=== PATIENT | female | born 1930 | race Caucasian/White ===

== ENCOUNTER 2017-01-05 01:01 | Emergency (ER) | payer OTHER ==
[~2017-01-05 01:01] MED LIST: ALEN70TA39 PO; D31000TA PO; FERR65TA PO; LEVO75TA3 PO; LOSA50TA PO; METO25 PO; NAPR250T57 PO; NOVOLOGMXP SQ; OMEP20TA39 PO; SIMV20 PO
[2017-01-05 01:05] VITALS: BP 135/75; PULSE 99; RESP 16; TEMP 98.7; O2SAT 99
[2017-01-05] MEDS ORDERED: OMEP40CA2 PO (01:25)
[2017-01-05] MEDS ORDERED: NOVOINJ2 SQ (01:25)
[2017-01-05] MEDS ORDERED: SIMV20TA PO (01:25)
[2017-01-05] MEDS ORDERED: LOSA50TA PO (01:25)
[2017-01-05] MEDS ORDERED: NOVOLOGP2 SQ (01:25)
[2017-01-05] MEDS ORDERED: METO25TA3 PO (01:25)
[2017-01-05] MEDS ORDERED: LEVO75TA3 PO (01:25)
[2017-01-05 01:57] LABS: AUTOMATED NEUTROPHIL # 4.8 TH/MM3 (1.8-7.7); BASOPHIL % 0.6 % (0.0-2.0); EOSINOPHIL # 0.2 TH/MM3 (0-0.4); EOSINOPHIL % 2.2 % (0.0-4.0); HEMATOCRIT 25.9 % (35.0-46.0); HEMO FLAGS DIFF FINAL; LYMPH % 19.3 % (9.0-44.0); LYMPHOCYTE # 1.4 TH/MM3 (1.0-4.8); MEAN CELL VOLUME 89.3 FL (80.0-100.0); MEAN CORPUSCULAR HGB CONC 33.6 % (32.0-36.0); MONO % 10.6 % (0.0-8.0); NEUT % 67.3 % (16.0-70.0); PLATELET COUNT 162 TH/MM3 (150-450); WHITE BLOOD COUNT 7.1 TH/MM3 (4.0-11.0)
--- NOTE | 2017-01-05 02:12 | PD ---
HPI Chief Complaint: Cold / Flu Symptoms Time Seen by Provider: 02:11 Travel History International Travel<30 days: No Contact w/Intl Traveler<30days: No Traveled to known affect area: No History of Present Illness HPI 86-year-old female came to the emergency room brought by her daughter with history of cough, rhinorrhea and posttussive chest pain that started at 9:00 yesterday morning. The daughter called patient's primary care doctor recommended to alternate Tylenol and Motrin. However the cough continued to get worse and she decided to bring her mother to the emergency room. She says patient had fever at home but it was not recorded. Patient is complaining of substernal chest pain but mainly upon coughing. Also some difficulty breathing when she lays down. She has history of coronary artery disease and had a CABG 20 years ago. 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 As per the daughter she just saw her doctor 2 weeks ago and everything was fine. Vital signs are stable. As I was talking to the daughter patient coughed a few times as well as blew her nose and had a congested voice. The daughter said she was sick a few days ago too but has recovered now. PFSH Past Medical History Narrative Medical List of her past medical, surgical, social and family history was reviewed from the nursing note Heart Rhythm Problems: No Cancer: Yes (SKIN CA, HAVE BEEN REMOVED) Cardiac Catheterization: Yes Cardiovascular Problems: Yes High Cholesterol: Yes Chest Pain: No Congestive Heart Failure: No Diabetes: Yes Patient Takes Glucophage: No Diminished Hearing: No Endocrine: Yes Genitourinary: Yes (ONE FUNCTIONING KIDNEY) Hypertension: Yes Immune Disorder: No Musculoskeletal: No Neurologic: No Psychiatric: No Reproductive: No Respiratory: No Thyroid Disease: Yes Menopausal: Yes Past Surgical History Abdominal Surgery: Yes (hernia) Appendectomy: Yes Coronary Artery Bypass Graft: Yes (triple) Other Surgery: Yes (bilateral shoulders, l knee, triple bypass) Social History Alcohol Use: No Tobacco Use: No Substance Use: No Allergies-Medications (Allergen,Severity, Reaction): Coded Allergies: Iodine (Unverified Allergy, Unknown, 01/05/17) Per family "decreased kidney function" Comments List of her allergies reviewed from the nursing note. Reported Meds & Prescriptions Reported Meds & Active Scripts Active Zithromax Z-Karlos (Azithromycin) 250 Mg Dspk 250 Mg PO DIRECTED 500 MG (2 tabs) day 1, then 1 tab days 2-5. Reported Novolog Inj (Insulin Aspart) 1,000 Unit/10 Ml Vial 34 Units SQ AC BREAKFAST Novolog Mix 70-30 FlexPen Inj (Insulin Aspart Protam-Asp 70-30 Inj) 300 Unit/3 Ml Pen 20 Units SQ Levothyroxine (Levothyroxine Sodium) 75 Mcg Tab 75 Mcg PO DAILY Omeprazole 40 Mg Cap 40 Mg PO DAILY Metoprolol Tartrate 25 Mg Tab 12.5 Mg PO BID Simvastatin 20 Mg Tab 20 Mg PO DAILY Losartan (Losartan Potassium) 50 Mg Tab 50 Mg PO BID Narrative Medication List of her home medications reviewed from the nursing note. Review of Systems Except as stated in HPI: all other systems reviewed are Neg Physical Exam Narrative GENERAL: Awake, alert, elderly, moderate distress SKIN: Focused skin assessment warm/dry. HEAD: Atraumatic. Normocephalic. EYES: Pupils equal and round. No scleral icterus. No injection or drainage. ENT: No nasal bleeding or discharge. Mucous membranes pink and moist. Nasal congestion and rhinorrhea. Clear postnasal drip. Some pharyngeal erythema NECK: Trachea midline. No JVD. CARDIOVASCULAR: Regular rate and rhythm. No murmur appreciated. RESPIRATORY: No accessory muscle use. Clear to auscultation. Breath sounds equal bilaterally. GASTROINTESTINAL: Abdomen soft, non-tender, nondistended. Hepatic and splenic margins not palpable. MUSCULOSKELETAL: No obvious deformities. No clubbing. No cyanosis. No edema. NEUROLOGICAL: Awake and alert. No obvious cranial nerve deficits. Motor grossly within normal limits. Normal speech. PSYCHIATRIC: Appropriate mood and affect; insight and judgment normal. Data Data Last Documented VS Orders Electrocardiogram (01/05/17 01:39) Complete Blood Count With Diff (01/05/17 01:39) Basic Metabolic Panel (Bmp) (01/05/17 01:39) Ckmb (Isoenzyme) Profile (01/05/17 01:39) Troponin I (01/05/17 01:39) Chest, Single Ap (01/05/17 01:39) Iv Access Insert/Monitor (01/05/17 01:39) Ecg Monitoring (01/05/17 01:39) Oxygen Administration (01/05/17:39) Oximetry (01/05/17 01:39) Influenzae A/B Antigen (01/05/17 01:40) CKMB (01/05/17 01:46) CKMB% (01/05/17 01:46) Azithromycin (Zithromax) (01/05/17 03:00) Group A Rapid Strep Screen (01/05/17 03:02) Strep Culture (Group A) (01/05/17 03:08) Labs MDM Medical Decision Making Medical Screen Exam Complete: Yes Emergency Medical Condition: Yes Medical Record Reviewed: Yes Interpretation(s) Twelve-lead EKG was reviewed by me. Normal sinus rhythm, left axis deviation, nonspecific ST-T wave changes. Heart rate of 95 bpm. Differential Diagnosis URI, pneumonia, influenza Narrative Course 2:52 AM patient has anemia which the daughter says that she has history of. She has some renal insufficiency which is also not new. Troponin is negative. Chest x-ray shows some retrocardiac density which under the given circumstances I would consider it to be pneumonia. Her cough does sound very wet. The patient has history of coronary artery disease this whole scenario seems more infectious than CAD. I will start her on Zithromax given her risk factors including diabetes. Her sugar is 320. I told the daughter that she could be discharged home as long as she gets the antibiotic. If condition worsens she should be brought back to the emergency room. She should follow up with her primary care on Sunday. Daughter was comfortable with this plan. Procedures EKG Prior to Arrival: No Diagnosis Primary Impression: Cough Additional Impressions: Pneumonia Qualified Code: J18.1 - Pneumonia of left lower lobe due to infectious organism Hyperglycemia Referrals: Primary Care Physician Additional Instructions: Please return to the ER if the condition worsens or any other new concerns. Otherwise follow-up with your primary care on Sunday. Give the medication as per the prescription direction. Patient should drink lots of fluid to stay hydrated. She can take Tylenol/Advil/ibuprofen/Motrin if she has fever. Med/Other Pt SpecificInfo: Prescription(s) given Scripts Azithromycin (Zithromax Z-Karlos)250 Mg [id number] Mg PO DIRECTED #1 DSPK Ref 0 500 MG (2 tabs) day 1, then 1 tab days 2-5. Prov:Reynold Cortez MD 01/05/17 Disposition: 01 DISCHARGE HOME Condition: Stable Reynold Cortez MD Jan 05, 2017 02:12 Eosinophils # (Auto) 0.2 TH/MM3 Basophils # (Auto) 0.0 TH/MM3 CBC Comment DIFF FINAL Differential Comment Sodium Level 137 MEQ/L Potassium Level 4.6 MEQ/L Chloride Level 103 MEQ/L Carbon Dioxide Level 26.8 MEQ/L Anion Gap 7 MEQ/L Blood Urea Nitrogen 33 MG/DL Creatinine 1.51 MG/DL Estimat Glomerular Filtration 33 ML/MIN Rate Random Glucose 320 MG/DL Calcium Level 9.1 MG/DL Total Creatine Kinase 104 U/L Creatine Kinase MB 0.9 NG/ML Troponin I 0.02 NG/ML [facility] Medical Decision Making Medical Screen Exam Complete: Yes Emergency Medical Condition: Yes Medical Record Reviewed: Yes Interpretation(s) Twelve-lead EKG was reviewed by me. Normal sinus rhythm, left axis deviation, nonspecific ST-T wave changes. Heart rate of 95 bpm. Differential Diagnosis URI, pneumonia, influenza Narrative Course 2:52 AM patient has anemia which the daughter says that she has history of. She has some renal insufficiency which is also not new. Troponin is negative. Chest x-ray shows some retrocardiac density which under the given circumstances I would consider it to be pneumonia. Her cough does sound very wet. The patient has history of coronary artery disease this whole scenario seems more infectious than CAD. I will start her on Zithromax given her risk factors including diabetes. Her sugar is 320. I told the daughter that she could be discharged home as long as she gets the antibiotic. If condition worsens she should be brought back to the emergency room. She should follow up with her primary care on Sunday. Daughter was comfortable with this plan. Procedures EKG Prior to Arrival: No Diagnosis Primary Impression: Cough Additional Impressions: Pneumonia Qualified Code: J18.1 - Pneumonia of left lower lobe due to infectious organism Hyperglycemia Referrals: Primary Care Physician Additional Instructions: Please return to the ER if the condition worsens or any other new concerns. Otherwise follow-up with your primary care on Sunday. Give the medication as per the prescription direction. Patient should drink lots of fluid to stay hydrated. She can take Tylenol/Advil/ibuprofen/Motrin if she has fever. Med/Other Pt SpecificInfo: Prescription(s) given Scripts Azithromycin (Zithromax Z-Karlos)250 Mg [id number] Mg PO DIRECTED #1 DSPK Ref 0 500 MG (2 tabs) day 1, then 1 tab days 2-5. Prov:Reynold Cortez MD 01/05/17 Disposition: 01 DISCHARGE HOME Condition: Stable Reynold Cortez MD Jan 05, 2017 02:12
[2017-01-05 02:13] LABS: ANION GAP 7 MEQ/L (5-15); BICARBONATE 26.8 MEQ/L (21.0-32.0); BLOOD UREA NITROGEN 33 MG/DL (7-18); CHLORIDE 103 MEQ/L (98-107); GLOMERULAR FILTRATION RATE 33 ML/MIN (>89); POTASSIUM 4.6 MEQ/L (3.5-5.1); SODIUM (NA) 137 MEQ/L (136-145)
[2017-01-05 02:16] LABS: CREATINE KINASE 104 U/L (26-192)
[2017-01-05 02:29] LABS: CKMB 0.9 NG/ML (0.5-3.6)
--- NOTE | 2017-01-05 02:40 | RADRPT ---
EXAM DATE/TIME: 01/05/2017 02:20 [facility] COMPARISON: CHEST SINGLE AP, November 03, 2015, 11:53. INDICATIONS : Pt has had cough and fever x 1 day. MEDICAL HISTORY : Diabetes mellitus type II. Hypertension Hypercholesterolemia. Thyroid disease, One functioning ki dney SURGICAL HISTORY : Appendectomy. CABG. ENCOUNTER: Initial ACUITY: 1 day PAIN SCORE: 7/10 LOCATION: Bilateral chest FINDINGS: A single view of the chest demonstrates the lungs to be symmetrically aerated without evidence of mas s, infiltrate or effusion. Retrocardiac density possible hiatal hernia. Cardiomegaly and previous CAB G. The cardiomediastinal contours are unremarkable. Osseous structures are intact. CONCLUSION: 1. Retrocardiac density possible hiatal hernia. 2. Cardiomegaly and previous median sternotomy. Nick Bangura MD on January 05, 2017 at 2:36 Board Certified Radiologist. This report was verified electronically.
[2017-01-05] MEDS ORDERED: ZITHTAB PO (02:56)
[2017-01-05] MEDS ORDERED: AZITHROMYCIN 250 MG TAB PO ONE (03:00)
[2017-01-05 03:54] VITALS: BP 130/74; PULSE 98; RESP 14; O2SAT 100
--- NOTE | 2017-01-05 16:43 | EKG ---
Date Performed: 01/05/2017 Time Performed: 01:38:36 PTAGE: 86 years EKG: Sinus rhythm NONSPECIFIC T-WAVE ABNORMALITY BORDERLINE ECG PREVIOUS TRACING : 09/17/2014 12.54 Compared to prior tracing no significant change DOCTOR: Woody Villanueva Interpretating Date/Time 01/05/2017 16:42:26
== END 2017-01-05 04:39 | disposition home or self-care (01) ==
LOC: NEPE 01:01
DX: J18.1 Lobar pneumonia, unspecified organism (principal); E11.65 Type 2 diabetes mellitus with hyperglycemia; I10 Essential (primary) hypertension; Z79.4 Long term (current) use of insulin
CPT/HCPCS: 71010; 80048; 82550; 82552; 84484; 85025; 87081; 87804; 87880; 93005; 99285

== ENCOUNTER 2017-01-23 00:51 | Inpatient (IN) | payer OTHER, MEDICARE ==
[~2017-01-23] VITALS: Ht 162.6 cm; Wt 75.4 kg
[2017-01-23] VITALS (14 sets, daily range): BP systolic 130–149; BP diastolic 60–91; PULSE 71–101; RESP 16–18; TEMP 97.2–99; O2SAT 97–99
[~2017-01-23 00:51] MED LIST changes: -ALEN70TA39 PO; -D31000TA PO; -FERR65TA PO; -METO25 PO; +METO25TA3 PO; -NAPR250T57 PO; +NOVOINJ2 SQ; -NOVOLOGMXP SQ; +NOVOLOGP2 SQ; -OMEP20TA39 PO; +OMEP40CA2 PO; -SIMV20 PO; +SIMV20TA PO; +ZITHTAB PO
[2017-01-23] MEDS ORDERED: ASPI81CH CHEW (01:01)
--- NOTE | 2017-01-23 01:14 | PD ---
HPI Chief Complaint: Cold / Flu Symptoms Time Seen by Provider: 01:05 Travel History International Travel<30 days: No Contact w/Intl Traveler<30days: No Traveled to known affect area: No History of Present Illness HPI The patient is an 86 year old female who presents to the [facility] emergency department with a history of body aches and chills that began this evening. The patient was also had a cough that has been persistent since she was last evaluated in the emergency department and treated for pneumonia on January 05, 2017 with a Z-Karlos. The patient reports that the cough is mainly dry in character. She denies having any known fevers. She denies having any chest pain, chest pressure, or shortness of breath. She denies having any abdominal pain, nausea, vomiting, or diarrhea. She last moved her bowels yesterday. She reports having generalized weakness. Otherwise on review of systems, she denies any neck pain, urinary symptoms, or neurologic symptoms. [facility] Past Medical History Narrative Medical The patient's past medical history is significant for having skin cancer, history of hyperlipidemia, diabetes mellitus, history of chronic renal insufficiency, hypertension, hypothyroid disorder, coronary artery disease. Heart Rhythm Problems: No Cancer: Yes (SKIN CA, HAVE BEEN REMOVED) Cardiac Catheterization: Yes Cardiovascular Problems: Yes High Cholesterol: Yes Chest Pain: No Congestive Heart Failure: No Diabetes: Yes Patient Takes Glucophage: No Diminished Hearing: No Endocrine: Yes Genitourinary: Yes (ONE FUNCTIONING KIDNEY) Hypertension: Yes Immune Disorder: No Musculoskeletal: No Neurologic: No Psychiatric: No Reproductive: No Respiratory: No Thyroid Disease: Yes Tetanus Vaccination: Unknown ?: Not Menopausal: Yes Past Surgical History Narrative Surgical The patient's past surgical history is significant for a hernia repair, appendectomy, coronary artery bypass grafting of 3 vessels, left knee surgery, bilateral shoulder surgery. Abdominal Surgery: Yes (hernia) Appendectomy: Yes Coronary Artery Bypass Graft: Yes (triple) Other Surgery: Yes (bilateral shoulders, l knee, triple bypass) Social History Alcohol Use: No Tobacco Use: No Substance Use: No Allergies-Medications (Allergen,Severity, Reaction): Coded Allergies: Iodine (Unverified Allergy, Unknown, 01/23/17) Per family "decreased kidney function" Reported Meds & Prescriptions Reported Meds & Active Scripts Active Reported Aspirin 81 Mg Chew 81 Mg CHEW DAILY Novolog Inj (Insulin Aspart) 1,000 Unit/10 Ml Vial 34 Units SQ AC BREAKFAST Novolog Mix 70-30 FlexPen Inj (Insulin Aspart Protam-Asp 70-30 Inj) 300 Unit/3 Ml Pen 20 Units SQ Levothyroxine (Levothyroxine Sodium) 75 Mcg Tab 75 Mcg PO DAILY Omeprazole 40 Mg Cap 40 Mg PO DAILY Metoprolol Tartrate 25 Mg Tab 12.5 Mg PO BID Simvastatin 20 Mg Tab 20 Mg PO DAILY Losartan (Losartan Potassium) 50 Mg Tab 50 Mg PO BID Review of Systems Except as stated in HPI: all other systems reviewed are Neg General / Constitutional: No: Fever Eyes: No: Visual changes HENT: Positive: Congestion, No: Headaches, Neck Stiffness, Neck Pain Cardiovascular: No: Chest Pain or Discomfort Respiratory: Positive: Cough, No: Shortness of Breath Gastrointestinal: No: Nausea, Vomiting, Diarrhea, Abdominal Pain, Changes in Bowel Habits Genitourinary: No: Dysuria Musculoskeletal: Positive: Myalgias, No: Pain Skin: No Rash Neurologic: Positive: Weakness (generalized weakness), No: Focal Abnormalities , Change in Mentation, Slurred Speech, Sensory Disturbance Psychiatric: No: Depression Endocrine: No: Polydipsia Hematologic/Lymphatic: No: Easy Bruising Physical Exam Narrative General: The patient is a well-developed well-nourished female in no acute distress. Head and Neck exam: Head is normocephalic atraumatic. Eyes: EOMI, pupils are equal round and reactive to light. Nose: Midline septum with pink mucous membranes Mouth: Dentition unremarkable. Moist mucus membranes. Posterior oropharynx is not erythematous. No tonsillar hypertrophy. Uvula midline. Airway patent. Neck: No palpable lymphadenopathy. No nuchal rigidity. No thyromegaly. Cardiovascular: Regular rate and rhythm without murmurs, gallops, or rubs. Lungs: The patient has decreased breath sounds in bilateral bases, no rhonchi, no crackles. Abdomen: Soft, without tenderness to palpation in all 4 quadrants of the abdomen. No guarding, rebound, or rigidity. Normal bowel sounds are audible. No tenderness on palpation of McBurney's point. Negative Pierre's sign. Extremities: No clubbing or cyanosis. The patient has 1+ edema bilateral lower extremities. 2+ pulses in all 4 extremities. No calf tenderness on palpation. Back: No spinous process tenderness to palpation. No costovertebral angle tenderness to palpation. Neurologic Exam: Grossly nonfocal. Skin Exam: No rash noted. Intact skin that is warm and dry. Data Data Last Documented VS Vital Signs Date Time Temp Pulse Resp B/P Pulse Ox O2 Delivery O2 Flow Rate FiO2 01/23/17 01:28 18 Room Air 01/23/17 00:57 98.5 96 141/91 99 Orders Electrocardiogram (01/23/17 01:11) Complete Blood Count With Diff (01/23/17:11) Comprehensive Metabolic Panel (01/23/17 01:11) Creatine Kinase (Cpk) (01/23/17:11) Ckmb (Isoenzyme) Profile (01/23/17:11) Troponin I (01/23/17:11) B-Type Natriuretic Peptide (01/23/17:11) Prothrombin Time / Inr (Pt) (01/23/17:11) Act Partial Throm Time (Ptt) (01/23/17:11) Blood Culture (01/23/17:11) Lipase (01/23/17:11) Urinalysis - C+S If Indicated (01/23/17:11) Magnesium (Mg) (01/23/17:11) Thyroid Stimulating Hormone (01/23/17:11) Chest, Single Ap (01/23/17:11) Iv Access Insert/Monitor (01/23/17:11) Ecg Monitoring (01/23/17:11) Oximetry (01/23/17:11) Lactic Acid Sepsis Protocol (01/23/17 01:11) Aspirin Chew (Aspirin Chew) (01/23/17 01:15) Nitroglycerin 2% Oint (Nitroglycerin 2% (01/23/17 01:15) Sodium Chlor 0.9% 250 Ml Inj (Ns 250 Ml (01/23/17 01:15) Admit Order (Ed Use Only) (01/23/17 03:51) Ceftriaxone Inj (Rocephin Inj) (01/23/17 04:00) Azithromycin Inj (Zithromax Inj) (01/23/17 04:00) Labs Laboratory Tests Test 01/23/17 01/23/17 01:15 01:20 B-Type Natriuretic Peptide 146 PG/ML White Blood Count 6.3 TH/MM3 Red Blood Count 3.10 MIL/MM3 Hemoglobin 9.0 GM/DL Hematocrit 27.4 % Mean Corpuscular Volume 88.1 FL Mean Corpuscular Hemoglobin 28.8 PG Mean Corpuscular Hemoglobin 32.7 % Concent Red Cell Distribution Width 14.1 % Platelet Count 175 TH/MM3 Mean Platelet Volume 10.5 FL Neutrophils (%) (Auto) 40.8 % Lymphocytes (%) (Auto) 41.1 % Monocytes (%) (Auto) 12.7 % Eosinophils (%) (Auto) 4.4 % Basophils (%) (Auto) 1.0 % Neutrophils # (Auto) 2.6 TH/MM3 Lymphocytes # (Auto) 2.6 TH/MM3 Monocytes # (Auto) 0.8 TH/MM3 Eosinophils # (Auto) 0.3 TH/MM3 Basophils # (Auto) 0.1 TH/MM3 CBC Comment DIFF FINAL Differential Comment Prothrombin Time 10.4 SEC Prothromb Time International 0.9 RATIO Ratio Activated Partial 33.5 SEC Thromboplast Time Sodium Level 140 MEQ/L Potassium Level 4.6 MEQ/L Chloride Level 108 MEQ/L Carbon Dioxide Level 25.1 MEQ/L Anion Gap 7 MEQ/L Blood Urea Nitrogen 32 MG/DL Creatinine 1.35 MG/DL Estimat Glomerular Filtration 37 ML/MIN Rate Random Glucose 167 MG/DL Lactic Acid Level 1.3 mmol/L Calcium Level 8.5 MG/DL Magnesium Level 1.7 MG/DL Total Bilirubin 0.2 MG/DL Aspartate Amino Transf 15 U/L (AST/SGOT) Alanine Aminotransferase 16 U/L (ALT/SGPT) Alkaline Phosphatase 76 U/L Total Creatine Kinase 73 U/L Troponin I 0.07 NG/ML Total Protein 7.3 GM/DL Albumin 3.5 GM/DL Lipase 120 U/L Thyroid Stimulating Hormone 4.480 uIU/ML [address] [place] [address] Medical Decision Making Medical Screen Exam Complete: Yes Emergency Medical Condition: Yes Medical Record Reviewed: Yes Interpretation(s) Last Impressions Chest X-Ray 01/23/17 0111 Signed Impressions: Service Date/Time: Monday, January 23, 2017 01:15 - CONCLUSION: Mild bibasilar atelectasis. Ady Chan MD Differential Diagnosis Pneumonia that is failed outpatient management, versus viral syndrome, versus electrolyte derangements, versus dehydration, versus acute coronary syndrome Narrative Course During the course of the patients emergency department visit, the patients history, examination, and differential diagnosis were reviewed with the patient. The patient had IV access obtained and blood work sent for analysis. The patient was placed on a personnel monitor with oximetry and blood pressure monitoring. The patient had an ECG done on arrival that shows a sinus rhythm heart rate of 94, QRS duration 86 ms, QTC 413 ms, no acute ST segment elevation , ST segments are depressed in lead 1, V4, V5, T waves are inverted in aVL. The patient was initially provided aspirin 162 mg by mouth 1, nitroglycerin 1/ 2 inch the chest wall, normal saline at 250 mL bolus 1. The patients laboratory studies were reviewed and remarkable for white count is 6.3, hemoglobin 9, platelets 175 with 12.7 monocytes, eosinophils 4.4. CMP is remarkable for a chloride of 108, BUN 32, creatinine 1.35 which appears to be at the patient's baseline, troponin I 0.07 which is increased compared to her prior evaluation January 05, TSH 4.48, lactic acid 1.3, PT 10.4, PTT 33.5, urinalysis shows 300 glucose, moderate leukocyte esterase, 11 wbc's, 3 squamous epithelial cells, occasional bacteria, culture indicated. Radiology studies were reviewed and remarkable for a chest x-ray that shows bibasilar atelectasis versus infiltrate. Given the patient's generalized weakness, body aches which she actually reports his most prominent in her shoulders this could be an atypical coronary syndrome presentation. The patient does have an intermediate troponin I which is increased compared to previously although she does also have renal insufficiency. The patient will be admitted for rule out serial cardiac enzyme protocol. The patients results were discussed with the patient, including the plan of care. I explained that further testing and/ or monitoring is indicated based on the patients history, examination, and/ or laboratory findings. Therefore, I recommended admission for additional evaluation. The patient expressed understanding and was agreeable with this plan. The patient was admitted to the hospital in stable condition and [facility] Physician Communication Physician Communication The patient's case was discussed with Dr. Hays who did agree to admit the patient for further evaluation and treatment at this time. Diagnosis Primary Impression: Generalized weakness Additional Impression: Elevated troponin Admitting Information Admitting Physician Requests: Admit Caryl Malloy MD Jan 23, 2017 01:14
[2017-01-23] MEDS ORDERED: ASPIRIN 81 MG CHEW TAB CHEW ONE (01:15)
[2017-01-23] MEDS ORDERED: SODIUM CHLOR 0.9% 250 ML INJ 250 ML IV ONE (01:15)
[2017-01-23] MEDS ORDERED: NITROGLYCERIN 2% OINT 1 GM PACKET TOPICAL ONE (01:15)
[2017-01-23 01:38] LABS: AUTOMATED NEUTROPHIL # 2.6 TH/MM3 (1.8-7.7); BASOPHIL # 0.1 TH/MM3 (0-0.2); EOSINOPHIL # 0.3 TH/MM3 (0-0.4); EOSINOPHIL % 4.4 % (0.0-4.0); HEMATOCRIT 27.4 % (35.0-46.0); HEMO FLAGS DIFF FINAL; LYMPH % 41.1 % (9.0-44.0); LYMPHOCYTE # 2.6 TH/MM3 (1.0-4.8); MEAN CELL VOLUME 88.1 FL (80.0-100.0); MEAN CORPUSCULAR HEMOGLOBIN 28.8 PG (27.0-34.0); MEAN CORPUSCULAR HGB CONC 32.7 % (32.0-36.0); MONO % 12.7 % (0.0-8.0); NEUT % 40.8 % (16.0-70.0); PLATELET COUNT 175 TH/MM3 (150-450); RED CELL DISTRIBUTION WIDTH 14.1 % (11.6-17.2); WHITE BLOOD COUNT 6.3 TH/MM3 (4.0-11.0)
[2017-01-23 01:44] LABS: ALT (GPT) 16 U/L (10-53); ANION GAP 7 MEQ/L (5-15); AST (GOT) 15 U/L (15-37); BICARBONATE 25.1 MEQ/L (21.0-32.0); BLOOD UREA NITROGEN 32 MG/DL (7-18); CHLORIDE 108 MEQ/L (98-107); GLOMERULAR FILTRATION RATE 37 ML/MIN (>89); MAGNESIUM 1.7 MG/DL (1.5-2.5); POTASSIUM 4.6 MEQ/L (3.5-5.1); SODIUM (NA) 140 MEQ/L (136-145)
[2017-01-23 01:45] LABS: APTT (PATIENT) 33.5 SEC (24.3-30.1); INTERNATIONAL NORMALIZED RATIO 0.9 RATIO; PROTHROMBIN TIME - PATIENT 10.4 SEC (9.8-11.6)
[2017-01-23 01:55] LABS: ALKALINE PHOSPHATASE 76 U/L (45-117); TOTAL BILIRUBIN ADULT 0.2 MG/DL (0.2-1.0)
--- NOTE | 2017-01-23 01:56 | RADRPT ---
EXAM DATE/TIME: 01/23/2017 01:15 [facility] COMPARISON: CHEST SINGLE AP, January 05, 2017, 2:20. INDICATIONS : Shortness of breath. MEDICAL HISTORY : Diabetes mellitus type II. Hypertension Hypercholesterolemia. Thyroid SURGICAL HISTORY : Appendectomy. CABG. ENCOUNTER: Initial ACUITY: 1 day PAIN SCORE: 0/10 LOCATION: Bilateral chest FINDINGS: Trace atelectasis seen of the lung bases. No acute pneumonia demonstrated. No pleural effusion or pne umothorax. Hiatal hernia again suspected. Heart size stable, upper limits of normal. There is been pr evious median sternotomy. CONCLUSION: Mild bibasilar atelectasis. Ady Chan MD on January 23, 2017 at 1:53 Board Certified Radiologist. This report was verified electronically.
[2017-01-23 01:57] LABS: CREATINE KINASE 73 U/L (26-192)
[2017-01-23] MEDS ORDERED: cefTRIAXone INJ 1,000 MG in SODIUM CHLORIDE 0.9% INJ 100 ML IV ONE (04:00)
[2017-01-23] MEDS ORDERED: AZITHROMYCIN INJ 500 MG in SODIUM CHLOR 0.9% 250 ML INJ 250 ML IV ONE (04:00)
[2017-01-23] MEDS ORDERED: NALOXONE HCL 0.4 MG/ML AMP IV PRN (04:15)
[2017-01-23] MEDS ORDERED: SODIUM CHLORIDE 0.9% FLUSH 10 ML FLUSH IV FLUSH PRN (04:15)
[2017-01-23] MEDS: SODIUM CHLORIDE 0.9% FLUSH 10 ML FLUSH IV FLUSH SCH ×2 (09:00→20:50)
--- NOTE | 2017-01-23 10:19 | EKG ---
Date Performed: 01/23/2017 Time Performed: 00:57:41 PTAGE: 86 years EKG: Normal Sinus rhythm Anteroseptal myocardial infarction - age indeterminate vs. lead rajinder cement Compared to the prior tra cing, there has been loss of R wave in V2 and increased ST depression. Clinical correlation needed fo r ischemia. PREVIOUS TRACING 01/05/2017 DOCTOR: Kendall Malloy Interpretating Date/Time 01/23/2017 10:19:00
[2017-01-23] MEDS: METOPROLOL TARTRATE 25 MG TAB PO SCH ×2 (11:57→20:50)
[2017-01-23] MEDS: LOSARTAN 50 MG TAB PO SCH ×2 (11:57→20:50)
[2017-01-23] MEDS: HEPARIN-D5W INJ 250 ML IV SCH (12:03)
--- NOTE | 2017-01-23 12:07 | PD.CONS ---
HPI Consult Requested By Primary Care Physician Non-Staff History of Present Illness 86 y/o F originally from [place] with pmhx significant for CAD s/p CABG x3 ~20 years ago, HTN, HLD, DM, CKD and chronic anemia admitted with complaints of body aches, described as bilateral shoulder that radiates to the back that started yesterday evening. Recently she was treated for a pneumonia with PO antx. She complaints of a nonproductive cough. Denies fevers, chest pain, chest pressure, shortness of breath, abdominal pain, nausea, vomiting, or diarrhea. EKG no acute ST changes and mildly elevated troponin. Consulted to cardiology fo further management and evaluation. 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 Last stress test per daughter was unremarkable. She has been started on a Heparin drip. Review of Systems Eyes: DENIES: Amaurosis Fugax, Change in vision HEENT: DENIES: Lightheadedness, Change in hearing Respiratory: DENIES: See HPI, Cough, Snoring, Shortness of breath, Wheezing, Sputum production Cardiovascular: DENIES: See HPI, Chest pain, Palpitations, Syncope, Tachycardia Gastrointestinal: DENIES: Nausea, Vomiting, Change in bowel habits, Reflux, Bloody stools, Melena Genitourinary: DENIES: Urinary incontinence, Difficulty voiding Integumentary: DENIES: Rash Neurologic: DENIES: Tingling or numbness, Memory problems, Poor Balance, Stroke symptoms Musculoskeletal: DENIES: Joint pain, Muscle pain, Limited range of motion, Back pain Psychiatric: DENIES: Anxiety, Depression, Sleep disturbances Hematologic: DENIES: Bruising tendencies, Bleeding tendencies Endocrine: DENIES: Weight gain, Weight loss, Thyroid disease Past Family Social History Allergies: Coded Allergies: Iodine (Unverified Allergy, Unknown, 01/23/17) Per family "decreased kidney function" Past Medical History HTN, CRI, DM, CAD and Hypothyroidism Past Surgical History Hernia Repair, Appendectomy, CABG Reported Medications Reported Meds & Active Scripts Active Reported Aspirin 81 Mg Chew 81 Mg CHEW DAILY Novolog Inj (Insulin Aspart) 1,000 Unit/10 Ml Vial 34 Units SQ AC BREAKFAST Novolog Mix 70-30 FlexPen Inj (Insulin Aspart Protam-Asp 70-30 Inj) 300 Unit/3 Ml Pen 20 Units SQ Levothyroxine (Levothyroxine Sodium) 75 Mcg Tab 75 Mcg PO DAILY Omeprazole 40 Mg Cap 40 Mg PO DAILY Metoprolol Tartrate 25 Mg Tab 12.5 Mg PO BID Simvastatin 20 Mg Tab 20 Mg PO DAILY Losartan (Losartan Potassium) 50 Mg Tab 50 Mg PO BID Active Ordered Medications Current Medications Medications (Trade) Dose Ordered Sig/Siddharth Route Start Time Stop Time Status Last Admin (NS Flush) 2 ml UNSCH PRN IV FLUSH 01/23/17 04:15 (NS Flush) 2 ml BID IV FLUSH 01/23/17 09:00 (Narcan Inj) 0.4 mg UNSCH PRN IV 01/23/17 04:15 (Pneumovax-23 Inj) 25 mcg ONCE ONCE IM 01/24/17 09:00 01/24/17 09:01 (Flu (Quadrivalent) Vaccine Inj) 0.5 ml ONCE ONCE IM 01/24/17 09:00 01/24/17 09:01 (Aspirin Chew) 81 mg DAILY CHEW 01/24/17 09:00 (Synthroid) 75 mcg DAILY@0600 PO 01/24/17 06:00 (Cozaar) 50 mg BID PO 01/23/17 11:15 01/23/17 11:57 (Lopressor) 12.5 mg BID PO 01/23/17 11:15 01/23/17 11:57 (Protonix) 40 mg DAILY PO 01/24/17 09:00 Pravastatin Sodium 40 mg 40 mg HS PO 01/23/17 21:00 (Heparin-D5W Inj) 250 ml @ 0 mls/hr TITRATE IV 01/23/17 11:15 01/23/17 12:03 Family History Noncontributory. Social History Negative for alcohol, tobacco or drugs. Physical Exam Vital Signs Vital Signs Date Time Temp Pulse Resp B/P Pulse Ox O2 Delivery O2 Flow Rate FiO2 01/23/17 11:24 98.4 88 17 147/67 98 01/23/17 09:10 98.6 96 16 148/66 98 01/23/17 07:25 97.2 88 16 130/60 97 Room Air 01/23/17 04:38 71 18 134/66 98 Room Air 01/23/17 01:28 18 Room Air 01/23/17 01:02 Room Air 01/23/17 00:57 98.5 96 18 141/91 99 Physical Exam GENERAL: Well-nourished, well-developed patient. SKIN: Warm and dry. HEAD: Normocephalic. EYES: No scleral icterus. No injection or drainage. NECK: Supple, trachea midline. No JVD or lymphadenopathy. CARDIOVASCULAR: Regular rate and rhythm without murmurs, gallops, or rubs. RESPIRATORY: Breath sounds equal bilaterally. No accessory muscle use. GASTROINTESTINAL: Abdomen soft, non-tender, nondistended. EXTREMITIES: No cyanosis, or edema. NEUROLOGICAL: Awake, alert, and oriented x 3. Non-focal. Laboratory Laboratory Tests Test 01/23/17 01/23/17 01/23/17 01:15 01:20 08:30 B-Type Natriuretic Peptide 146 White Blood Count 6.3 Red Blood Count 3.10 Hemoglobin 9.0 Hematocrit 27.4 Mean Corpuscular Volume 88.1 Mean Corpuscular Hemoglobin 28.8 Mean Corpuscular Hemoglobin 32.7 Concent Red Cell Distribution Width 14.1 Platelet Count 175 Mean Platelet Volume 10.5 Neutrophils (%) (Auto) 40.8 Lymphocytes (%) (Auto) 41.1 Monocytes (%) (Auto) 12.7 Eosinophils (%) (Auto) 4.4 Basophils (%) (Auto) 1.0 Neutrophils # (Auto) 2.6 Lymphocytes # (Auto) 2.6 Monocytes # (Auto) 0.8 Eosinophils # (Auto) 0.3 Basophils # (Auto) 0.1 CBC Comment DIFF FINAL Differential Comment Prothrombin Time 10.4 Prothromb Time International 0.9 Ratio Activated Partial 33.5 Thromboplast Time Sodium Level 140 Potassium Level 4.6 Chloride Level 108 Carbon Dioxide Level 25.1 Anion Gap 7 Blood Urea Nitrogen 32 Creatinine 1.35 Estimat Glomerular Filtration 37 Rate Random Glucose 167 Lactic Acid Level 1.3 Calcium Level 8.5 Magnesium Level 1.7 Total Bilirubin 0.2 Aspartate Amino Transf 15 (AST/SGOT) Alanine Aminotransferase 16 (ALT/SGPT) Alkaline Phosphatase 76 Total Creatine Kinase 73 47 Troponin I 0.07 0.46 Total Protein 7.3 Albumin 3.5 Lipase 120 Thyroid Stimulating Hormone 4.480 3rd Gen Date/Time Procedure Status Source Growth 01/23/17 01:20 Aerobic Blood Culture Received Blood Peripheral Pending 01/23/17 01:20 Anaerobic Blood Culture Received Blood Peripheral Pending Result Diagram: 01/23/17 0120 01/23/17 0120 Imaging Last Impressions Chest X-Ray 01/23/17 0111 Signed Impressions: Service Date/Time: Monday, January 23, 2017 01:15 - CONCLUSION: Mild bibasilar atelectasis. Ady Chan MD Assessment and Plan Problem List: (1) Elevated troponin Assessment and Plan: 86 y/o F admitted with shoulder pain and back pain found to have elevated troponin. DDx. ACS vs Dissection vs. PE vs. Demand Ischemia. Unfortunately clinical picture complicated by known CKD, severe anemia and allergy to iodine. After long discussion about treatment options, including invasive risk stratification, for now patient prefers conservative therapy with medications. Recommendations: 1. 2D echocardiogram 2. Cycle Cardiac Markers x 3 3. Telemetry 4. Cont ASA, Metoprolol, Statin and Heparin drip 5. Consider V/Q scan to r/o PE Thank you for the opportunity to take part in the care of this patient Further therapy to be determine (2) HTN (hypertension) (3) DM (diabetes mellitus) Problem Qualifiers (1) HTN (hypertension): Qualified Code: I10 - Essential hypertension Josh Rodriguez MD Jan 23, 2017 12:07
[2017-01-23 12:30] LABS: HEMATOCRIT 26.3 % (35.0-46.0); MEAN CELL VOLUME 88.6 FL (80.0-100.0); MEAN CORPUSCULAR HEMOGLOBIN 28.6 PG (27.0-34.0); MEAN CORPUSCULAR HGB CONC 32.3 % (32.0-36.0); PLATELET COUNT 150 TH/MM3 (150-450); RED BLOOD COUNT 2.97 MIL/MM3 (4.00-5.30); REVIEW FLAG FINAL; WHITE BLOOD COUNT 6.6 TH/MM3 (4.0-11.0)
[2017-01-23 12:39] LABS: APTT (PATIENT) 30.3 SEC (24.3-30.1); PROTHROMBIN TIME - PATIENT 10.7 SEC (9.8-11.6)
--- NOTE | 2017-01-23 12:43 | HHI.HP ---
[facility]Staff Admission Diagnosis Generalized weakness, elevated troponin Diagnoses: Chief Complaint: Diffuse aches and pains, cough Travel History International Travel<30 Days: No Contact w/Intl Traveler <30 Da: No Traveled to Known Affected Are: No History of Present Illness The patient is an 86-year-old female with a past medical history of CAD and diabetes who is presenting to the hospital with diffuse aches and pains as well as a cough. She came to the hospital about 2 weeks ago and was prescribed antibiotics for pneumonia. Her symptoms did not get better. She continued to cough regularly. She denies any sputum production. She complains of pain all over. She has pain in both of her shoulders as well as in her back. She also has aches and pains in her legs. She says she saw her primary care doctor about these symptoms. She denies any chest pain. She did have shortness of breath overnight approximated difficult to sleep. She also says she had severe back pain overnight which made it difficult for her to sleep. She currently denies any shortness of breath. She denies any fevers. She has no pain on urination. She denies any difficulties with bowel movements. She currently lives with her daughter and ambulates with a rolling walker. Review of Systems Except as stated in HPI: all other systems reviewed are Neg Past Family Social History Past Medical History CAD s/p CABG x 3 DM HTN Hypothyroidism Chronic kidney disease Iron deficiency anemia Hernia repair Left knee replacement Left toe surgery Allergies: Coded Allergies: Iodine (Unverified Allergy, Unknown, 01/23/17) Per family "decreased kidney function" Active Ordered Medications Current Medications Medications (Trade) Dose Ordered Sig/Siddharth Route Start Time Stop Time Status Last Admin (NS Flush) 2 ml UNSCH PRN IV FLUSH 01/23/17 04:15 (NS Flush) 2 ml BID IV FLUSH 01/23/17 09:00 (Narcan Inj) 0.4 mg UNSCH PRN IV 01/23/17 04:15 (Pneumovax-23 Inj) 25 mcg ONCE ONCE IM 01/24/17 09:00 01/24/17 09:01 (Flu (Quadrivalent) Vaccine Inj) 0.5 ml ONCE ONCE IM 01/24/17 09:00 01/24/17 09:01 (Aspirin Chew) 81 mg DAILY CHEW 01/24/17 09:00 (Synthroid) 75 mcg DAILY@0600 PO 01/24/17 06:00 (Cozaar) 50 mg BID PO 01/23/17 11:15 01/23/17 11:57 (Lopressor) 12.5 mg BID PO 01/23/17 11:15 01/23/17 11:57 (Protonix) 40 mg DAILY PO 01/24/17 09:00 Pravastatin Sodium 40 mg 40 mg HS PO 01/23/17 21:00 (Heparin-D5W Inj) 250 ml @ 0 mls/hr TITRATE IV 01/23/17 11:15 01/23/17 12:03 Family History Diabetes CAD Social History The patient does not smoke or drink. She lives with her daughter. Physical Exam Vital Signs Vital Signs Date Time Temp Pulse Resp B/P Pulse Ox O2 Delivery O2 Flow Rate FiO2 01/23/17 11:24 98.4 88 17 147/67 98 01/23/17 09:10 98.6 96 16 148/66 98 01/23/17 07:25 97.2 88 16 130/60 97 Room Air 01/23/17 04:38 71 18 134/66 98 Room Air 01/23/17 01:28 18 Room Air 01/23/17 01:02 Room Air 01/23/17 00:57 98.5 96 18 141/91 99 Physical Exam GENERAL: This is a well-nourished, well-developed patient, in no apparent distress. SKIN: No rashes, ecchymoses or lesions. Cool and dry. HEAD: Atraumatic. Normocephalic. No temporal or scalp tenderness. EYES: Pupils equal round and reactive. Extraocular motions intact. No scleral icterus. No injection or drainage. ENT: Nose without bleeding, purulent drainage or septal hematoma. Throat without erythema, tonsillar hypertrophy or exudate. Uvula midline. Airway patent. NECK: Trachea midline. No JVD or lymphadenopathy. Supple, nontender, no meningeal signs. CARDIOVASCULAR: Regular rate and rhythm without murmurs, gallops, or rubs. RESPIRATORY: Mild rhonchi appreciated. GASTROINTESTINAL: Abdomen soft, non-tender, nondistended. No hepato-splenomegaly , or palpable masses. No guarding. MUSCULOSKELETAL: Extremities without clubbing, cyanosis, or edema. Bilateral shoulder tenderness to palpation. No back tenderness to palpation. NEUROLOGICAL: Awake and alert. Cranial nerves II through XII intact. Motor and sensory grossly within normal limits. Five out of 5 muscle strength in all muscle groups. Normal speech. PSYCH: Mood and affect appropriate. Laboratory Laboratory Tests Test 01/23/17 01/23/17 01/23/17 01/23/17 01:15 01:20 08:30 12:06 B-Type Natriuretic Peptide 146 White Blood Count 6.3 6.6 Red Blood Count 3.10 2.97 Hemoglobin 9.0 8.5 Hematocrit 27.4 26.3 Mean Corpuscular Volume 88.1 88.6 Mean Corpuscular Hemoglobin 28.8 28.6 Mean Corpuscular Hemoglobin 32.7 32.3 Concent Red Cell Distribution Width 14.1 14.0 Platelet Count 175 150 Mean Platelet Volume 10.5 10.5 Neutrophils (%) (Auto) 40.8 Lymphocytes (%) (Auto) 41.1 Monocytes (%) (Auto) 12.7 Eosinophils (%) (Auto) 4.4 Basophils (%) (Auto) 1.0 Neutrophils # (Auto) 2.6 Lymphocytes # (Auto) 2.6 Monocytes # (Auto) 0.8 Eosinophils # (Auto) 0.3 Basophils # (Auto) 0.1 CBC Comment DIFF FINAL Differential Comment Prothrombin Time 10.4 Prothromb Time International 0.9 Ratio Activated Partial 33.5 Thromboplast Time Sodium Level 140 Potassium Level 4.6 Chloride Level 108 Carbon Dioxide Level 25.1 Anion Gap 7 Blood Urea Nitrogen 32 Creatinine 1.35 Estimat Glomerular Filtration 37 Rate Random Glucose 167 Lactic Acid Level 1.3 Calcium Level 8.5 Magnesium Level 1.7 Total Bilirubin 0.2 Aspartate Amino Transf 15 (AST/SGOT) Alanine Aminotransferase 16 (ALT/SGPT) Alkaline Phosphatase 76 Total Creatine Kinase 73 47 Troponin I 0.07 0.46 Total Protein 7.3 Albumin 3.5 Lipase 120 Thyroid Stimulating Hormone 4.480 3rd Gen Date/Time Procedure Status Source Growth 01/23/17 01:20 Aerobic Blood Culture Received Blood Peripheral Pending 01/23/17 01:20 Anaerobic Blood Culture Received Blood Peripheral Pending Result Diagram: 01/23/17 1206 01/23/17 0120 Imaging Last Impressions Chest X-Ray 01/23/17 0111 Signed Impressions: Service Date/Time: Monday, January 23, 2017 01:15 - CONCLUSION: Mild bibasilar atelectasis. Ady Chan MD Assessment and Plan Assessment and Plan NSTEMI The pt has diffuse aches and pains which may be a coronary equivalent. Troponin elevated at 0.46. She was started on a heparin gtt. EKG with evidence of ST depressions. Cardiology consult appreciated. - trend trops and EKGs. - continue heparin gtt for now. - telemetry. - check an echo, lipid profile. - continue cardiac regimen. Cough Recently treated for PNA with azithromycin. CXR unremarkable. - work-up as above. - cough suppressants as needed. DM On insulin as an outpt. - insulin sliding scale. - resume long-acting insulin as needed. - diabetic diet. - check HgbA1c. CKD Creatinine is at baseline. - avoid nephrotoxic agents. Anemia The pt gets iron infusions as an outpt. - monitor as needed. HTN Blood pressure slightly elevated. - continue home meds. - Vasotec as needed. PPx: Heparin Discussed Condition With Pt, pt's daughter, nurse Physician Certification 2 Midnight Certification Type: Admission for Inpatient Services Order for Inpatient Services The services are ordered in accordance with Medicare regulations or non- Medicare payer requirements, as applicable. In the case of services not specified as inpatient-only, they are appropriately provided as inpatient services in accordance with the 2-midnight benchmark. Estimated LOS (days): 2 days is the estimated time the patient will need to remain in the hospital, assuming treatment plan goals are met and no additional complications. Post-Hospital Plan: Home Ajith Tamayo DO Jan 23, 2017 12:43
[2017-01-23] MEDS: INSULIN ASPART SUPPLEMENTAL SCALE SQ SCH ×2 (18:33→20:55)
--- NOTE | 2017-01-23 19:27 | EKG ---
Date Performed: 01/23/2017 Time Performed: 08:27:14 PTAGE: 86 years EKG: NORMAL Sinus rhythm SEPTAL MYOCARDIAL INFARCTION DIFFUSED ST DEPRESSION IS MORE PROMINENT THAN IN PRIOR TRACING. POSSIBL E ISCHEMIA Clinical correlation is recommended ABNORMAL ECG PREVIOUS TRACING : 01/23/2017 00.57 DOCTOR: Kendall Malloy Interpretating Date/Time 01/23/2017 19:26:06
[2017-01-23] MEDS ORDERED: PRAVASTATIN SOD 40 MG TAB PO SCH (21:00)
[2017-01-23 21:18] LABS: APTT (PATIENT) 87.7 SEC (24.3-30.1)
--- NOTE | 2017-01-23 22:07 | EKG ---
Date Performed: 01/23/2017 Time Performed: 14:38:28 PTAGE: 86 years EKG: Sinus rhythm WITH SINUS ARRHYTHMIA SEPTAL MYOCARDIAL INFARCTION MILD ST-T ABNORMALITY ABNORMAL ECG PREVIOUS TRACING : 01/23/2017 08.27 Compared to prior tracing no significant change DOCTOR: Petra Biggs Interpretating Date/Time 01/23/2017 22:06:03
[2017-01-23 22:48] LABS: HDL CHOLESTEROL 60.1 MG/DL (40.0-60.0)
[2017-01-23 23:22] LABS: APTT (PATIENT) 77.4 SEC (24.3-30.1)
[2017-01-24] VITALS (29 sets, daily range): BP systolic 130–156; BP diastolic 60–84; PULSE 70–92; RESP 16–18; TEMP 98.2–99.1; O2SAT 93–99
[2017-01-24 03:51] LABS: AUTOMATED NEUTROPHIL # 2.3 TH/MM3 (1.8-7.7); BASOPHIL # 0.1 TH/MM3 (0-0.2); EOSINOPHIL # 0.2 TH/MM3 (0-0.4); EOSINOPHIL % 4.4 % (0.0-4.0); HEMATOCRIT 24.9 % (35.0-46.0); HEMO FLAGS DIFF FINAL; LYMPH % 42.2 % (9.0-44.0); LYMPHOCYTE # 2.4 TH/MM3 (1.0-4.8); MEAN CELL VOLUME 87.6 FL (80.0-100.0); MEAN CORPUSCULAR HEMOGLOBIN 28.5 PG (27.0-34.0); MEAN CORPUSCULAR HGB CONC 32.6 % (32.0-36.0); NEUT % 41.4 % (16.0-70.0); PLATELET COUNT 158 TH/MM3 (150-450); RED BLOOD COUNT 2.84 MIL/MM3 (4.00-5.30); RED CELL DISTRIBUTION WIDTH 13.7 % (11.6-17.2); WHITE BLOOD COUNT 5.6 TH/MM3 (4.0-11.0)
[2017-01-24 04:13] LABS: APTT (PATIENT) 92.7 SEC (24.3-30.1)
[2017-01-24 04:22] LABS: BICARBONATE 25.4 MEQ/L (21.0-32.0); POTASSIUM 4.6 MEQ/L (3.5-5.1)
[2017-01-24] MEDS: LEVOTHYROXINE SODIUM 75 MCG TAB PO SCH (05:58)
[2017-01-24] MEDS: INSULIN ASPART SUPPLEMENTAL SCALE SQ SCH ×4 (06:09→21:00)
[2017-01-24 07:10] LABS: APTT (PATIENT) 76.2 SEC (24.3-30.1)
[2017-01-24] MEDS ORDERED: INFLUENZA VIRUS VACCINE (QUADRIVALENT) 0.5 ML SYR IM ONE (09:00)
[2017-01-24] MEDS ORDERED: PNEUMOCOCCAL POLYVALENT INJ 25 MCG/0.5 ML SYR IM ONE (09:00)
[2017-01-24] MEDS: ASPIRIN 81 MG CHEW TAB CHEW SCH (09:29)
[2017-01-24] MEDS: PANTOPRAZOLE SOD 40 MG DELAYED RELEASE TAB PO SCH (09:29)
[2017-01-24] MEDS: LOSARTAN 50 MG TAB PO SCH ×2 (09:29→21:00)
[2017-01-24] MEDS: METOPROLOL TARTRATE 25 MG TAB PO SCH ×2 (09:29→21:00)
--- NOTE | 2017-01-24 09:29 | HHI.PR ---
Subjective Remarks The patient was resting comfortably in bed. Her family was at the bedside. The patient denied any pain or discomfort. She does continue to cough. Discussed with nursing. Objective Vitals Vital Signs Date Time Temp Pulse Resp B/P Pulse Ox O2 Delivery O2 Flow Rate FiO2 01/24/17 07:30 98.4 85 18 144/70 97 01/24/17 07:00 80 01/24/17 06:23 80 01/24/17 05:51 75 01/24/17 04:00 74 01/24/17 03:00 73 01/24/17 03:00 98.2 84 131/75 96 01/24/17 02:34 74 01/24/17 01:00 76 01/24/17 00:50 98.4 75 130/84 99 01/24/17 00:00 70 01/23/17 23:00 75 01/23/17 22:00 86 01/23/17 21:00 86 01/23/17 20:00 84 01/23/17 19:00 85 01/23/17 19:00 98.9 86 138/71 99 01/23/17 18:00 82 01/23/17 18:00 99.0 89 16 149/78 98 01/23/17 15:36 98.2 87 18 136/63 98 01/23/17 12:27 101 01/23/17 11:24 98.4 88 17 147/67 98 I/O 01/23/17 01/23/17 01/23/17 01/24/17 01/24/17 01/24/17 07:00 15:00 23:00 07:00 15:00 23:00 Intake Total 260 ml 480 ml Balance 260 ml 480 ml Intake Oral 240 ml 480 ml IV Total 20 ml # Voids 1 3 Result Diagram: 01/24/17 0313 01/24/17 0313 Imaging Last Impressions Chest X-Ray 01/23/17 0111 Signed Impressions: Service Date/Time: Monday, January 23, 2017 01:15 - CONCLUSION: Mild bibasilar atelectasis. Ady Chan MD Objective Remarks GENERAL: This is a well-nourished, well-developed patient, in no apparent distress. SKIN: No rashes, ecchymoses or lesions. Cool and dry. HEAD: Atraumatic. Normocephalic. No temporal or scalp tenderness. EYES: Pupils equal round and reactive. Extraocular motions intact. No scleral icterus. No injection or drainage. ENT: Nose without bleeding, purulent drainage or septal hematoma. Throat without erythema, tonsillar hypertrophy or exudate. Uvula midline. Airway patent. NECK: Trachea midline. No JVD or lymphadenopathy. Supple, nontender, no meningeal signs. CARDIOVASCULAR: Regular rate and rhythm without murmurs, gallops, or rubs. RESPIRATORY: Mild rhonchi appreciated. GASTROINTESTINAL: Abdomen soft, non-tender, nondistended. No hepato-splenomegaly , or palpable masses. No guarding. MUSCULOSKELETAL: Extremities without clubbing, cyanosis, or edema. Bilateral shoulder tenderness to palpation. No back tenderness to palpation. NEUROLOGICAL: Awake and alert. Cranial nerves II through XII intact. Motor and sensory grossly within normal limits. Five out of 5 muscle strength in all muscle groups. Normal speech. PSYCH: Mood and affect appropriate. Medications and IVs Current Medications Medications (Trade) Dose Ordered Sig/Siddharth Route Start Time Stop Time Status Last Admin (NS Flush) 2 ml UNSCH PRN IV FLUSH 01/23/17 04:15 (NS Flush) 2 ml BID IV FLUSH 01/23/17 09:00 01/23/17 20:50 (Narcan Inj) 0.4 mg UNSCH PRN IV 01/23/17 04:15 (Aspirin Chew) 81 mg DAILY CHEW 01/24/17 09:00 (Synthroid) 75 mcg DAILY@0600 PO 01/24/17 06:00 01/24/17 05:58 (Cozaar) 50 mg BID PO 01/23/17 11:15 01/23/17 20:50 (Lopressor) 12.5 mg BID PO 01/23/17 11:15 01/23/17 20:50 (Protonix) 40 mg DAILY PO 01/24/17 09:00 Pravastatin Sodium 40 mg 40 mg HS PO 01/23/17 21:00 01/23/17 20:50 (Heparin-D5W Inj) 250 ml @ 0 mls/hr TITRATE IV 01/23/17 11:15 01/23/17 12:03 A/P Assessment and Plan NSTEMI The pt had diffuse aches and pains on presentation. Troponin elevated at 1.7. She was started on a heparin gtt. EKG with evidence of ST depressions. Cardiology consult appreciated. LDL 80. - trend trops and EKGs. - continue heparin gtt for 48 hours. - telemetry. - check an echo. - will treat with medical management per cardiology. Cough Recently treated for PNA with azithromycin. CXR unremarkable. - work-up as above. - cough suppressants as needed. DM On insulin as an outpt. - insulin sliding scale. - Levemir 10 units daily for now. - diabetic diet. - check HgbA1c. CKD Creatinine is at baseline. - avoid nephrotoxic agents. Anemia The pt gets iron infusions as an outpt. - monitor as needed. HTN Blood pressure slightly elevated. - continue home meds. - Vasotec as needed. PPx: Heparin Discharge Planning Awaiting cardiology clearance Ajith Tamayo DO Jan 24, 2017 09:29
[2017-01-24] MEDS: SODIUM CHLORIDE 0.9% FLUSH 10 ML FLUSH IV FLUSH SCH ×2 (09:30→21:00)
[2017-01-24 09:36] LABS: APTT (PATIENT) 50.6 SEC (24.3-30.1)
--- NOTE | 2017-01-24 09:58 | PD.CARD.PN ---
Subjective Subjective Remarks no chest pain no CV complaints no overnight events worsening anemia Objective Medications Current Medications Medications (Trade) Dose Ordered Sig/Siddharth Route Start Time Stop Time Status Last Admin (NS Flush) 2 ml UNSCH PRN IV FLUSH 01/23/17 04:15 (NS Flush) 2 ml BID IV FLUSH 01/23/17 09:00 01/24/17 09:30 (Narcan Inj) 0.4 mg UNSCH PRN IV 01/23/17 04:15 (Aspirin Chew) 81 mg DAILY CHEW 01/24/17 09:00 01/24/17 09:29 (Synthroid) 75 mcg DAILY@0600 PO 01/24/17 06:00 01/24/17 05:58 (Cozaar) 50 mg BID PO 01/23/17 11:15 01/24/17 09:29 (Lopressor) 12.5 mg BID PO 01/23/17 11:15 01/24/17 09:29 (Protonix) 40 mg DAILY PO 01/24/17 09:00 01/24/17 09:29 Pravastatin Sodium 40 mg 40 mg HS PO 01/23/17 21:00 01/23/17 20:50 (Heparin-D5W Inj) 250 ml @ 0 mls/hr TITRATE IV 01/23/17 11:15 01/23/17 12:03 (Levemir Inj) 10 units DAILY SQ 01/24/17 09:30 Vital Signs / I&O Vital Signs Date Time Temp Pulse Resp B/P Pulse Ox O2 Delivery O2 Flow Rate FiO2 01/24/17 07:30 98.4 85 18 144/70 97 01/24/17 07:00 80 01/24/17 06:23 80 01/24/17 05:51 75 01/24/17 04:00 74 01/24/17 03:00 73 01/24/17 03:00 98.2 84 131/75 96 01/24/17 02:34 74 01/24/17 01:00 76 01/24/17 00:50 98.4 75 130/84 99 01/24/17 00:00 70 01/23/17 23:00 75 01/23/17 22:00 86 01/23/17 21:00 86 01/23/17 20:00 84 01/23/17 19:00 85 01/23/17 19:00 98.9 86 138/71 99 01/23/17 18:00 82 01/23/17 18:00 99.0 89 16 149/78 98 01/23/17 15:36 98.2 87 18 136/63 98 01/23/17 12:27 101 01/23/17 11:24 98.4 88 17 147/67 98 I/O 01/23/17 01/23/17 01/23/17 01/24/17 01/24/17 01/24/17 07:00 15:00 23:00 07:00 15:00 23:00 Intake Total 260 ml 480 ml Balance 260 ml 480 ml Intake Oral 240 ml 480 ml IV Total 20 ml # Voids 1 3 Physical Exam GENERAL: Well-nourished, well-developed patient. SKIN: Warm and dry. HEAD: Normocephalic. EYES: No scleral icterus. No injection or drainage. NECK: Supple, trachea midline. No JVD or lymphadenopathy. CARDIOVASCULAR: Regular rate and rhythm without murmurs, gallops, or rubs. RESPIRATORY: Breath sounds equal bilaterally. No accessory muscle use. GASTROINTESTINAL: Abdomen soft, non-tender, nondistended. EXTREMITIES: No cyanosis, or edema. NEUROLOGICAL: Awake, alert, and oriented x 3. Non-focal. Laboratory Laboratory Tests Test 01/23/17 01/23/17 01/23/17 01/23/17 12:06 14:00 20:56 22:24 White Blood Count 6.6 TH/MM3 Red Blood Count 2.97 MIL/MM3 Hemoglobin 8.5 GM/DL Hematocrit 26.3 % Mean Corpuscular Volume 88.6 FL Mean Corpuscular Hemoglobin 28.6 PG Mean Corpuscular Hemoglobin 32.3 % Concent Red Cell Distribution Width 14.0 % Platelet Count 150 TH/MM3 Mean Platelet Volume 10.5 FL Prothrombin Time 10.7 SEC Prothromb Time International 1.0 RATIO Ratio Activated Partial 30.3 SEC 87.7 SEC 77.4 SEC Thromboplast Time Total Creatine Kinase 89 U/L Troponin I 0.94 NG/ML 1.70 NG/ML Triglycerides Level 62 MG/DL Cholesterol Level 152 MG/DL LDL Cholesterol 80 MG/DL HDL Cholesterol 60.1 MG/DL Cholesterol/HDL Ratio 2.52 RATIO Test 01/24/17 01/24/17 01/24/17 03:13 06:42 09:10 White Blood Count 5.6 TH/MM3 Red Blood Count 2.84 MIL/MM3 Hemoglobin 8.1 GM/DL Hematocrit 24.9 % Mean Corpuscular Volume 87.6 FL Mean Corpuscular Hemoglobin 28.5 PG Mean Corpuscular Hemoglobin 32.6 % Concent Red Cell Distribution Width 13.7 % Platelet Count 158 TH/MM3 Mean Platelet Volume 10.8 FL Neutrophils (%) (Auto) 41.4 % Lymphocytes (%) (Auto) 42.2 % Monocytes (%) (Auto) 11.0 % Eosinophils (%) (Auto) 4.4 % Basophils (%) (Auto) 1.0 % Neutrophils # (Auto) 2.3 TH/MM3 Lymphocytes # (Auto) 2.4 TH/MM3 Monocytes # (Auto) 0.6 TH/MM3 Eosinophils # (Auto) 0.2 TH/MM3 Basophils # (Auto) 0.1 TH/MM3 CBC Comment DIFF FINAL Differential Comment Activated Partial 92.7 SEC 76.2 SEC 50.6 SEC Thromboplast Time Sodium Level 142 MEQ/L Potassium Level 4.6 MEQ/L Chloride Level 110 MEQ/L Carbon Dioxide Level 25.4 MEQ/L Anion Gap 7 MEQ/L Blood Urea Nitrogen 27 MG/DL Creatinine 1.22 MG/DL Estimat Glomerular Filtration 42 ML/MIN Rate Random Glucose 150 MG/DL Calcium Level 8.3 MG/DL Troponin I 1.44 NG/ML Imaging Last Impressions Chest X-Ray 01/23/17 0111 Signed Impressions: Service Date/Time: Monday, January 23, 2017 01:15 - CONCLUSION: Mild bibasilar atelectasis. Ady Chan MD Assessment and Plan Problem List: (1) Elevated troponin Assessment and Plan: Continue medical management. Not LHC/PCI candidate given worsening anemia and CKD (2) HTN (hypertension) (3) DM (diabetes mellitus) Problem Qualifiers (1) HTN (hypertension): Qualified Code: I10 - Essential hypertension Josh Rodriguez MD Jan 24, 2017 09:58
[2017-01-24] MEDS: INSULIN DETEMIR 100 UNITS/ML VIAL SQ SCH (10:14)
[2017-01-24] MEDS: CLOPIDOGREL 75 MG TAB PO SCH (11:43)
[2017-01-24] MEDS: ATORVASTATIN 20 MG TAB PO SCH (11:43)
[2017-01-24] MEDS: HEPARIN-D5W INJ 250 ML IV SCH (13:45)
--- NOTE | 2017-01-24 16:25 | EKG ---
Date Performed: 01/24/2017 Time Performed: 12:33:02 PTAGE: 86 years EKG: Sinus rhythm rSr'(V1) - probable normal variant Possible septal infarct - age undetermined Lateral ST-T changes m ay be due to ischemia Abnormal ECG PREVIOUS TRACING : 01/23/2017 14.38 No significant change from previous tracing noted. DOCTOR: Ricki Brewer Interpretating Date/Time 01/24/2017 16:24:12
[2017-01-24 16:45] LABS: APTT (PATIENT) 52.2 SEC (24.3-30.1)
[2017-01-24 17:25] LABS: HEMOGLOBIN A1a 1.1 %; HEMOGLOBIN A1b 0.8 %; HEMOGLOBIN Ao 82.1 %; HEMOGLOBIN F 1.3 %; HEMOGLOBIN LA1C 2.7 %; HEMOGLOBIN P3 4.5 %
--- NOTE | 2017-01-24 18:51 | ECHRPT ---
Indication: SOB CONCLUSIONS Normal left ventricular size. Mild concentric left ventricular hypertrophy. The left ventricular systolic function is low normal with an estimated ejection fraction in the rang e of 50- 55%. The left atrial size is upper limits of normal. Mitral annular calcification is present. Moderate mitral valve regurgitation. Trace aortic valve regurgitation. There is mild to moderate tricuspid valve regurgitation. The estimated pulmonary arterial pressure is 34 mmHg. The pulmonary valve is not well visualized. BP: 147 / 67 HR: 101 Rhythm: Sinus MEASUREMENTS (Male / Female) Normal Values Technical Quality:Good 2D ECHO LV Diastolic Diameter PLAX 4.3 cm 4.2 - 5.9 / 3.9 - 5.3 cm LV Systolic Diameter PLAX 3.4 cm IVS Diastolic Thickness 0.8 cm 0.6 - 1.0 / 0.6 - 0.9 cm LVPW Diastolic Thickness 0.6 cm 0.6 - 1.0 / 0.6 - 0.9 cm LV Relative Wall Thickness 0.3 RV Internal Dim ED PLAX 2.3 cm LA Systolic Diameter LX 3.7 cm 3.0 - 4.0 / 2.7 - 3.8 cm M-MODE Aortic Root Diameter MM 2.7 cm AV Cusp Separation MM 1.6 cm DOPPLER Mitral E Point Velocity 56.8 cm/s Mitral A Point Velocity 82.9 cm/s Mitral E to A Ratio 0.7 TR Peak Velocity 270.0 cm/s TR Peak Gradient 29.2 mmHg FINDINGS LEFT VENTRICLE Normal left ventricular size. Mild concentric left ventricular hypertrophy. The left ventricular systolic function is low normal with an estimated ejection fraction in the rang e of 50- 55%. RIGHT VENTRICLE Normal right ventricular size and systolic function. LEFT ATRIUM The left atrial size is upper limits of normal. RIGHT ATRIUM The right atrial size is normal. ATRIAL SEPTUM Normal atrial septal thickness without atrial level shunting by limited color doppler interrogation. AORTA The aortic root and proximal ascending aorta are normal in size on limited imaging. MITRAL VALVE Mitral annular calcification is present. Moderate mitral valve regurgitation. AORTIC VALVE Trace aortic valve regurgitation. TRICUSPID VALVE There is mild to moderate tricuspid valve regurgitation. The estimated pulmonary arterial pressure is 34 mmHg. PULMONARY VALVE The pulmonary valve is not well visualized. VESSELS The inferior vena cava is normal in size. PERICARDIUM No pericardial effusion. Petra Biggs MD, FACC (Electronically Signed) Final Date:24 January 2017 18:50
[2017-01-25] VITALS (24 sets, daily range): BP systolic 143–156; BP diastolic 66–82; PULSE 70–96; RESP 16–22; TEMP 97.5–98.9; O2SAT 95–100
[2017-01-25] MEDS: LEVOTHYROXINE SODIUM 75 MCG TAB PO SCH (05:56)
[2017-01-25] MEDS: INSULIN ASPART SUPPLEMENTAL SCALE SQ SCH ×4 (05:58→21:41)
[2017-01-25 07:01] LABS: HEMATOCRIT 26.5 % (35.0-46.0); MEAN CELL VOLUME 88.5 FL (80.0-100.0); MEAN CORPUSCULAR HEMOGLOBIN 28.2 PG (27.0-34.0); MEAN CORPUSCULAR HGB CONC 31.8 % (32.0-36.0); PLATELET COUNT 145 TH/MM3 (150-450); RED CELL DISTRIBUTION WIDTH 13.9 % (11.6-17.2); REVIEW FLAG FINAL; WHITE BLOOD COUNT 5.2 TH/MM3 (4.0-11.0)
[2017-01-25] MEDS: ASPIRIN 81 MG CHEW TAB CHEW SCH (08:22)
[2017-01-25] MEDS: METOPROLOL TARTRATE 25 MG TAB PO SCH ×2 (08:22→21:39)
[2017-01-25] MEDS: PANTOPRAZOLE SOD 40 MG DELAYED RELEASE TAB PO SCH (08:22)
[2017-01-25] MEDS: SODIUM CHLORIDE 0.9% FLUSH 10 ML FLUSH IV FLUSH SCH ×2 (08:22→21:39)
[2017-01-25] MEDS: ATORVASTATIN 20 MG TAB PO SCH (08:23)
[2017-01-25] MEDS: INSULIN DETEMIR 100 UNITS/ML VIAL SQ SCH (08:23)
[2017-01-25] MEDS: LOSARTAN 50 MG TAB PO SCH ×2 (08:23→21:39)
[2017-01-25] MEDS: CLOPIDOGREL 75 MG TAB PO SCH (08:23)
--- NOTE | 2017-01-25 13:39 | HHI.PR ---
Subjective Remarks The patient was resting comfortably in a chair. Her family is at the bedside. The patient had some chest pain earlier but that has resolved. Discussed with patient. Objective Vitals Vital Signs Date Time Temp Pulse Resp B/P Pulse Ox O2 Delivery O2 Flow Rate FiO2 01/25/17 13:07 88 01/25/17 12:34 85 01/25/17 12:11 96 01/25/17 11:30 98.9 78 18 146/80 95 01/25/17 11:20 73 01/25/17 10:16 70 01/25/17 09:15 73 01/25/17 08:00 98.1 81 18 143/72 96 01/25/17 08:00 78 01/25/17 07:15 76 01/25/17 06:16 72 01/25/17 05:00 72 01/25/17 04:33 80 01/25/17 03:30 97.6 76 16 144/82 97 01/25/17 03:00 78 01/25/17 02:00 80 01/25/17 01:00 82 01/25/17 00:00 85 01/24/17 23:15 99.1 92 16 136/60 94 01/24/17 23:00 85 01/24/17 22:00 82 01/24/17 21:00 78 01/24/17 20:00 82 01/24/17 19:30 98.7 90 16 156/76 93 01/24/17 19:00 83 01/24/17 18:02 85 01/24/17 17:16 81 01/24/17 16:08 79 01/24/17 15:49 83 01/24/17 15:00 98.8 84 18 135/77 97 01/24/17 14:04 84 I/O 01/24/17 01/24/17 01/24/17 01/25/17 01/25/17 01/25/17 07:00 15:00 23:00 07:00 15:00 23:00 Intake Total 480 ml 557 ml 240 ml Balance 480 ml 557 ml 240 ml Intake Oral 480 ml 480 ml 240 ml IV Total 77 ml # Voids 3 3 1 # Bowel Movements 0 1 Result Diagram: 01/25/17 0643 01/24/17 0313 Imaging Last Impressions Chest X-Ray 01/23/17 0111 Signed Impressions: Service Date/Time: Monday, January 23, 2017 01:15 - CONCLUSION: Mild bibasilar atelectasis. Ady Chan MD Objective Remarks GENERAL: This is a well-nourished, well-developed patient, in no apparent distress. SKIN: No rashes, ecchymoses or lesions. Cool and dry. HEAD: Atraumatic. Normocephalic. No temporal or scalp tenderness. EYES: Pupils equal round and reactive. Extraocular motions intact. No scleral icterus. No injection or drainage. ENT: Nose without bleeding, purulent drainage or septal hematoma. Throat without erythema, tonsillar hypertrophy or exudate. Uvula midline. Airway patent. NECK: Trachea midline. No JVD or lymphadenopathy. Supple, nontender, no meningeal signs. CARDIOVASCULAR: Regular rate and rhythm without murmurs, gallops, or rubs. RESPIRATORY: CTAB. No W/R/R. GASTROINTESTINAL: Abdomen soft, non-tender, nondistended. No hepato-splenomegaly , or palpable masses. No guarding. MUSCULOSKELETAL: Extremities without clubbing, cyanosis, or edema. Bilateral shoulder tenderness to palpation. No back tenderness to palpation. NEUROLOGICAL: Awake and alert. Cranial nerves II through XII intact. Motor and sensory grossly within normal limits. Five out of 5 muscle strength in all muscle groups. Normal speech. PSYCH: Mood and affect appropriate. Medications and IVs Current Medications Medications (Trade) Dose Ordered Sig/Siddharth Route Start Time Stop Time Status Last Admin (NS Flush) 2 ml UNSCH PRN IV FLUSH 01/23/17 04:15 (NS Flush) 2 ml BID IV FLUSH 01/23/17 09:00 01/24/17 21:00 (Narcan Inj) 0.4 mg UNSCH PRN IV 01/23/17 04:15 (Aspirin Chew) 81 mg DAILY CHEW 01/24/17 09:00 01/25/17 08:22 (Synthroid) 75 mcg DAILY@0600 PO 01/24/17 06:00 01/25/17 05:56 (Cozaar) 50 mg BID PO 01/23/17 11:15 01/25/17 08:23 (Lopressor) 12.5 mg BID PO 01/23/17 11:15 01/25/17 08:22 (Protonix) 40 mg DAILY PO 01/24/17 09:00 01/25/17 08:22 (Levemir Inj) 10 units DAILY SQ 01/24/17 09:30 01/25/17 08:23 (Lipitor) 20 mg DAILY PO 01/24/17 11:30 01/25/17 08:23 (Plavix) 75 mg DAILY PO 01/24/17 10:00 01/25/17 08:23 A/P Assessment and Plan NSTEMI The pt had diffuse aches and pains on presentation. Troponin peaked at 1.7. She was started on a heparin gtt. EKG with evidence of ST depressions. Cardiology consult appreciated. LDL 80. Echo 50-55%. - continue heparin gtt for 48 hours. D/c. - telemetry. - will treat with medical management per cardiology. Plavix started. Cough Recently treated for PNA with azithromycin. CXR unremarkable. - work-up as above. - cough suppressants as needed. DM On insulin as an outpt. A1c 7.6%. - insulin sliding scale. - Levemir 10 units daily for now. - diabetic diet. CKD Creatinine is at baseline. - avoid nephrotoxic agents. Anemia The pt gets iron infusions as an outpt. - monitor as needed. HTN Blood pressure slightly elevated. - continue home meds. - Vasotec as needed. PPx: Heparin Discharge Planning Awaiting cardiology clearance. Anticipate d/c in Ajith Napier DO Jan 25, 2017 13:39
--- NOTE | 2017-01-25 13:44 | PD.CARD.PN ---
Subjective Subjective Remarks No overnight events Objective Medications Current Medications Medications (Trade) Dose Ordered Sig/Siddharth Route Start Time Stop Time Status Last Admin (NS Flush) 2 ml UNSCH PRN IV FLUSH 01/23/17 04:15 (NS Flush) 2 ml BID IV FLUSH 01/23/17 09:00 01/24/17 21:00 (Narcan Inj) 0.4 mg UNSCH PRN IV 01/23/17 04:15 (Aspirin Chew) 81 mg DAILY CHEW 01/24/17 09:00 01/25/17 08:22 (Synthroid) 75 mcg DAILY@0600 PO 01/24/17 06:00 01/25/17 05:56 (Cozaar) 50 mg BID PO 01/23/17 11:15 01/25/17 08:23 (Lopressor) 12.5 mg BID PO 01/23/17 11:15 01/25/17 08:22 (Protonix) 40 mg DAILY PO 01/24/17 09:00 01/25/17 08:22 (Levemir Inj) 10 units DAILY SQ 01/24/17 09:30 01/25/17 08:23 (Lipitor) 20 mg DAILY PO 01/24/17 11:30 01/25/17 08:23 (Plavix) 75 mg DAILY PO 01/24/17 10:00 01/25/17 08:23 (Tessalon) 100 mg ONCE ONCE PO 01/25/17 13:45 01/25/17 13:46 (Tessalon) 100 mg TID PRN PO 01/25/17 13:45 Vital Signs / I&O Vital Signs Date Time Temp Pulse Resp B/P Pulse Ox O2 Delivery O2 Flow Rate FiO2 01/25/17 13:07 88 01/25/17 12:34 85 01/25/17 12:11 96 01/25/17 11:30 98.9 78 18 146/80 95 01/25/17 11:20 73 01/25/17 10:16 70 01/25/17 09:15 73 01/25/17 08:00 98.1 81 18 143/72 96 01/25/17 08:00 78 01/25/17 07:15 76 01/25/17 06:16 72 01/25/17 05:00 72 01/25/17 04:33 80 01/25/17 03:30 97.6 76 16 144/82 97 01/25/17 03:00 78 01/25/17 02:00 80 01/25/17 01:00 82 01/25/17 00:00 85 01/24/17 23:15 99.1 92 16 136/60 94 01/24/17 23:00 85 01/24/17 22:00 82 01/24/17 21:00 78 01/24/17 20:00 82 01/24/17 19:30 98.7 90 16 156/76 93 01/24/17 19:00 83 01/24/17 18:02 85 01/24/17 17:16 81 01/24/17 16:08 79 01/24/17 15:49 83 01/24/17 15:00 98.8 84 18 135/77 97 01/24/17 14:04 84 I/O 01/24/17 01/24/17 01/24/17 01/25/17 01/25/17 01/25/17 07:00 15:00 23:00 07:00 15:00 23:00 Intake Total 480 ml 557 ml 240 ml Balance 480 ml 557 ml 240 ml Intake Oral 480 ml 480 ml 240 ml IV Total 77 ml # Voids 3 3 1 # Bowel Movements 0 1 Physical Exam GENERAL: Well-nourished, well-developed patient. SKIN: Warm and dry. HEAD: Normocephalic. EYES: No scleral icterus. No injection or drainage. NECK: Supple, trachea midline. No JVD or lymphadenopathy. CARDIOVASCULAR: Regular rate and rhythm without murmurs, gallops, or rubs. RESPIRATORY: Breath sounds equal bilaterally. No accessory muscle use. GASTROINTESTINAL: Abdomen soft, non-tender, nondistended. EXTREMITIES: No cyanosis, or edema. NEUROLOGICAL: Awake, alert, and oriented x 3. Non-focal. Laboratory Laboratory Tests Test 01/24/17 01/25/17 16:13 06:43 Activated Partial 52.2 SEC 65.0 SEC Thromboplast Time Troponin I 1.25 NG/ML White Blood Count 5.2 TH/MM3 Red Blood Count 3.00 MIL/MM3 Hemoglobin 8.4 GM/DL Hematocrit 26.5 % Mean Corpuscular Volume 88.5 FL Mean Corpuscular Hemoglobin 28.2 PG Mean Corpuscular Hemoglobin 31.8 % Concent Red Cell Distribution Width 13.9 % Platelet Count 145 TH/MM3 Mean Platelet Volume 10.4 FL Imaging Last Impressions Chest X-Ray 01/23/17 0111 Signed Impressions: Service Date/Time: Monday, January 23, 2017 01:15 - CONCLUSION: Mild bibasilar atelectasis. Ady Chan MD Assessment and Plan Problem List: (1) Elevated troponin Assessment and Plan: Continue medical management. No Complaints Stable to d/c home from CV standpoint f/u with me 1 week (2) HTN (hypertension) (3) DM (diabetes mellitus) Problem Qualifiers (1) HTN (hypertension): Qualified Code: I10 - Essential hypertension Josh Rodriguez MD Jan 25, 2017 13:44
[2017-01-25] MEDS ORDERED: BENZONATATE 100 MG CAP PO ONE (13:45)
[2017-01-25] MEDS ORDERED: BENZONATATE 100 MG CAP PO PRN (13:45)
--- NOTE | 2017-01-25 14:36 | HHI.FF ---
Face to Face Verification Diagnosis: (1) NSTEMI (non-ST elevated myocardial infarction) (2) Elevated troponin (3) DM (diabetes mellitus) (4) Cough Physical Therapy Order: Evaluate and Treat, Improve ambulation, Strength and gait training Home Health Nursing Order: Medical education Signs/symptoms of disease process Diabetic education Medication education-adverse effect Nursing assessment with vital signs I have seen patient Zandra Banegas on 01/25/17. My clinical findings support the need for the requested home health care services because: Ltd mobility - disease progression Deconditioned w/ increased weakness Limited ability to care for self High risk of falls I certify that my clinical findings support that this patient is homebound because: Unsteady gait/balance Unsafe to leave home unassisted Ajith Tamayo DO Jan 25, 2017 14:36
--- NOTE | 2017-01-25 14:37 | RADRPT ---
EXAM DATE/TIME: 01/25/2017 13:53 [facility] COMPARISON: CHEST SINGLE AP, January 23, 2017, 1:15. INDICATIONS : Cough. MEDICAL HISTORY : Diabetes mellitus type II. Hypertension Hypercholesterolemia. Thyroid SURGICAL HISTORY : Appendectomy. CABG. ENCOUNTER: Subsequent ACUITY: 2 weeks PAIN SCORE: 0/10 LOCATION: Bilateral chest FINDINGS: Single portable frontal view the chest shows a masslike area of consolidation involving the medial ri ght infrahilar region. Left lung is clear. No effusions. Heart is mildly enlarged. New sternotomy wir es. Old trauma involving the humeral necks bilaterally. CONCLUSION: 1. Worsening masslike consolidation involving the medial right lung base. 2. Prior trauma to the humeral necks bilaterally. 3. Cardiomegaly. Dustin Guevara Jr., MD on January 25, 2017 at 14:34 Board Certified Radiologist. This report was verified electronically.
--- NOTE | 2017-01-25 14:37 | HHI.DCPOC ---
Discharge Care Plan Diagnosis: (1) NSTEMI (non-ST elevated myocardial infarction) (2) Cough (3) Elevated troponin (4) DM (diabetes mellitus) Goals to Promote Your Health * To prevent worsening of your condition and complications * To maintain your health at the optimal level Directions to Meet Your Goals Take your medications as prescribed Follow your dietary instruction Follow activity as directed Keep your appointments as scheduled Take your immunizations and boosters as scheduled If your symptoms worsen call your PCP, if no PCP go to Urgent Care Center or Emergency Room Smoking is Dangerous to Your Health. Avoid second hand smoke Call the 24-hour hour crisis hotline for domestic abuse at Ajith Tamayo DO Jan 25, 2017 14:37
[2017-01-25] MEDS ORDERED: Vancomycin Consult Pharmacy 1 EA OTHER SCH (15:00)
[2017-01-25] MEDS ORDERED: VANCOMYCIN INJ 1,150 MG in SODIUM CHLOR 0.9% 250 ML INJ 250 ML IV SCH (15:00)
[2017-01-25] MEDS ORDERED: RESP: ALBUTEROL 2.5 MG/IPRATROPIUM 0.5 MG NEB (PRN) NEB (15:15)
[2017-01-25] MEDS: PIPERACIL-TAZO 4.5 GM PREMIX 100 ML IV SCH ×2 (16:06→21:40)
[2017-01-25] MEDS: VANCOMYCIN INJ 1,500 MG in SODIUM CHLORID 0.9% 500 ML INJ 500 ML IV SCH (17:18)
[2017-01-26] VITALS (8 sets, daily range): BP systolic 121–162; BP diastolic 60–74; PULSE 73–87; RESP 16–20; TEMP 97.4–98.3; O2SAT 95–98
[2017-01-26] MEDS: PIPERACIL-TAZO 4.5 GM PREMIX 100 ML IV SCH ×3 (04:40→16:00)
[2017-01-26] MEDS: LEVOTHYROXINE SODIUM 75 MCG TAB PO SCH (06:34)
[2017-01-26] MEDS: INSULIN ASPART SUPPLEMENTAL SCALE SQ SCH ×3 (06:35→17:12)
[2017-01-26 08:00] LABS: HEMATOCRIT 25.9 % (35.0-46.0); MEAN CELL VOLUME 87.4 FL (80.0-100.0); MEAN CORPUSCULAR HEMOGLOBIN 28.6 PG (27.0-34.0); MEAN CORPUSCULAR HGB CONC 32.7 % (32.0-36.0); PLATELET COUNT 147 TH/MM3 (150-450); RED BLOOD COUNT 2.96 MIL/MM3 (4.00-5.30); RED CELL DISTRIBUTION WIDTH 14.1 % (11.6-17.2); REVIEW FLAG FINAL; WHITE BLOOD COUNT 5.6 TH/MM3 (4.0-11.0)
[2017-01-26] MEDS: METOPROLOL TARTRATE 25 MG TAB PO SCH (09:09)
[2017-01-26] MEDS: ASPIRIN 81 MG CHEW TAB CHEW SCH (09:09)
[2017-01-26] MEDS: PANTOPRAZOLE SOD 40 MG DELAYED RELEASE TAB PO SCH (09:09)
[2017-01-26] MEDS: CLOPIDOGREL 75 MG TAB PO SCH (09:09)
[2017-01-26] MEDS: ATORVASTATIN 20 MG TAB PO SCH (09:09)
[2017-01-26] MEDS: LOSARTAN 50 MG TAB PO SCH (09:09)
[2017-01-26] MEDS: SODIUM CHLORIDE 0.9% FLUSH 10 ML FLUSH IV FLUSH SCH (09:10)
[2017-01-26] MEDS: INSULIN DETEMIR 100 UNITS/ML VIAL SQ SCH (09:23)
--- NOTE | 2017-01-26 10:55 | RADRPT ---
EXAM DATE/TIME: 01/26/2017 09:53 [facility] COMPARISON: CHEST SINGLE AP, January 25, 2017, 13:53. INDICATIONS : Pneumonia, chest congestion, cough, bilateral arm pain. MEDICAL HISTORY : Hypertension. Cardiovascular disease Thyroid disease,diabetes. SURGICAL HISTORY : CABG. Heart monitor. Appenectomy, hernia. ENCOUNTER: Subsequent ACUITY: 2 weeks PAIN SCORE: 0/10 LOCATION: Bilateral chest FINDINGS: The lungs are clear without infiltrate, nodule, or mass. There is no appreciable pleural effusion fo r technique. Heart and mediastinum are unremarkable. Huge hiatal hernia is seen. There is evidence f or prior median sternotomy. There are degenerative changes within the thoracic spine and the bony str uctures appear slightly osteopenic. CONCLUSION: No acute cardiopulmonary disease. Huge hiatal hernia. Andi Carl MD on January 26, 2017 at 10:46 Board Certified Radiologist. This report was verified electronically.
[2017-01-26] MEDS ORDERED: BENZ100 PO (15:36)
[2017-01-26] MEDS ORDERED: DOXY100C PO (15:36)
[2017-01-26] MEDS ORDERED: PLAV75TA29 PO (15:36)
--- NOTE | 2017-01-26 15:45 | HHI.DS ---
Discharge Summary Admission Date Jan 23, 2017 at 15:10 Discharge Date: Jan 26, 2017 Admitting Diagnosis Generalized weakness, elevated troponin (1) NSTEMI (non-ST elevated myocardial infarction) ICD Code: I21.4 Diagnosis: Principal (2) Cough ICD Code: R05 (3) Elevated troponin ICD Code: R74.8 (4) HTN (hypertension) ICD Code: I10 (5) DM (diabetes mellitus) ICD Code: E11.9 (6) Generalized weakness ICD Code: R53.1 (7) Pneumonia ICD Code: J18.9 Procedures Cardiac catheterization Brief History - From Admission The patient is an 86-year-old female with a past medical history of CAD and diabetes who is presenting to the hospital with diffuse aches and pains as well as a cough. She came to the hospital about 2 weeks ago and was prescribed antibiotics for pneumonia. Her symptoms did not get better. She continued to cough regularly. She denies any sputum production. She complains of pain all over. She has pain in both of her shoulders as well as in her back. She also has aches and pains in her legs. She says she saw her primary care doctor about these symptoms. She denies any chest pain. She did have shortness of breath overnight approximated difficult to sleep. She also says she had severe back pain overnight which made it difficult for her to sleep. She currently denies any shortness of breath. She denies any fevers. She has no pain on urination. She denies any difficulties with bowel movements. She currently lives with her daughter and ambulates with a rolling walker. CBC/BMP: 01/26/17 0645 01/24/17 0313 Significant Findings Laboratory Tests Test 01/23/17 01/23/17 01/24/17 01/24/17 20:56 22:24 03:13 06:42 Activated Partial 87.7 SEC 77.4 SEC 92.7 SEC 76.2 SEC Thromboplast Time (24.3-30.1) (24.3-30.1) (24.3-30.1) (24.3-30.1) Troponin I 1.70 NG/ML (0.02-0.05) Red Blood Count 2.84 MIL/MM3 (4.00-5.30) Hemoglobin 8.1 GM/DL (11.6-15.3) Hematocrit 24.9 % (35.0-46.0) Monocytes (%) (Auto) 11.0 % (0.0-8.0) Eosinophils (%) (Auto) 4.4 % (0.0-4.0) Chloride Level 110 MEQ/L (98-107) Blood Urea Nitrogen 27 MG/DL (7-18) Creatinine 1.22 MG/DL (0.50-1.00) Estimat Glomerular Filtration 42 ML/MIN (>89) Rate Random Glucose 150 MG/DL (74-106) Calcium Level 8.3 MG/DL (8.5-10.1) Test 01/24/17 01/24/17 01/25/17 01/26/17 09:10 16:13 06:43 06:45 Activated Partial 50.6 SEC 52.2 SEC 65.0 SEC Thromboplast Time (24.3-30.1) (24.3-30.1) (24.3-30.1) Troponin I 1.44 NG/ML 1.25 NG/ML (0.02-0.05) (0.02-0.05) Red Blood Count 3.00 MIL/MM3 2.96 MIL/MM3 (4.00-5.30) (4.00-5.30) Hemoglobin 8.4 GM/DL 8.5 GM/DL (11.6-15.3) (11.6-15.3) Hematocrit 26.5 % 25.9 % (35.0-46.0) (35.0-46.0) Mean Corpuscular Hemoglobin 31.8 % Concent (32.0-36.0) Platelet Count 145 TH/MM3 147 TH/MM3 (150-450) (150-450) Imaging Last Impressions Chest X-Ray 01/26/17 0600 Signed Impressions: Service Date/Time: Thursday, January 26, 2017 09:53 - CONCLUSION: No acute cardiopulmonary disease. Huge hiatal hernia. Andi Carl MD PE at Discharge GENERAL: This is a well-nourished, well-developed patient, in no apparent distress. SKIN: No rashes, ecchymoses or lesions. Cool and dry. HEAD: Atraumatic. Normocephalic. No temporal or scalp tenderness. EYES: Pupils equal round and reactive. Extraocular motions intact. No scleral icterus. No injection or drainage. ENT: Nose without bleeding, purulent drainage or septal hematoma. Throat without erythema, tonsillar hypertrophy or exudate. Uvula midline. Airway patent. NECK: Trachea midline. No JVD or lymphadenopathy. Supple, nontender, no meningeal signs. CARDIOVASCULAR: Regular rate and rhythm without murmurs, gallops, or rubs. RESPIRATORY: CTAB. No W/R/R. GASTROINTESTINAL: Abdomen soft, non-tender, nondistended. No hepato-splenomegaly , or palpable masses. No guarding. MUSCULOSKELETAL: Extremities without clubbing, cyanosis, or edema. Bilateral shoulder tenderness to palpation. No back tenderness to palpation. NEUROLOGICAL: Awake and alert. Cranial nerves II through XII intact. Motor and sensory grossly within normal limits. Five out of 5 muscle strength in all muscle groups. Normal speech. PSYCH: Mood and affect appropriate. Pt update on day of discharge The patient was feeling better today. She denied any chest pain. Her family was at the bedside and her questions were answered. Discussed with case management. Hospital Course NSTEMI The pt had diffuse aches and pains on presentation. Troponin peaked at 1.7. She was started on a heparin gtt. EKG with evidence of ST depressions. Cardiology was consulted. The pt was treated medically. She completed 48 hours of heparin. LDL 80. Echo with EF of 50-55%. She was monitored on telemetry. Plavix was added to her medication regimen. She will follow up with cardiology in one week. Cough Recently treated for PNA with azithromycin. CXR unremarkable. Repeat CXR with evidence of consolidation in the right base so vancomycin and Zosyn was started. PA/ lateral CXR with no evidence of pneumonia. The pt will continue Tessalon Perles as needed. She will complete a course of doxycycline. DM On insulin as an outpt. A1c 7.6%. She was placed on an insulin sliding scale and Levemir 10 units daily. She will resume her home regimen upon discharge. Pt Condition on Discharge: Stable Discharge Disposition: Disch w/ Home Health Serv Discharge Time: > 30 minutes Discharge Instructions DIET: Follow Instructions for: Diabetic Diet Activities you can perform: Weight Bearing as Mirian Follow up Referrals: Cardiology - [address] Guevara PCP Follow-up - 1 Week SNF/[facility]/ with [facility] Home New Medications: Doxycycline Hyclate (Doxycycline Hyclate) 100 Mg Cap 100 MG PO BID Infection #10 Ref 0 CAP Benzonatate (Tessalon Perles) 100 Mg Cap 100 MG PO TID PRN cough #20 CAP Clopidogrel (Plavix) 75 Mg Tab 75 MG PO DAILY Heart #30 TAB Continued Medications: Aspirin (Aspirin) 81 Mg Chew 81 MG CHEW DAILY Ref 0 TAB Insulin Aspart Inj (Novolog Inj) 1,000 Unit/10 Ml Vial 34 UNITS SQ AC BREAKFAST Blood Sugar Management #10 Ref 0 ML Insulin Aspart Protam-Asp 70-30 Inj (Novolog Mix 70-30 FlexPen Inj) 300 Unit/3 Ml Pen 20 UNITS SQ Blood Sugar Management #1 Ref 0 PEN Levothyroxine (Levothyroxine) 75 Mcg Tab 75 MCG PO DAILY Thyroid #30 Ref 0 TAB Losartan (Losartan) 50 Mg Tab 50 MG PO BID Blood Pressure Management #30 Ref 0 TAB Metoprolol Tartrate (Metoprolol Tartrate) 25 Mg Tab 12.5 MG PO BID #60 Ref 0 TAB Omeprazole (Omeprazole) 40 Mg Cap 40 MG PO DAILY #30 Ref 0 CAP Simvastatin (Simvastatin) 20 Mg Tab 20 MG PO DAILY Cholesterol Management #30 Ref 0 TAB Ajith Tamayo DO Jan 26, 2017 15:45
[2017-01-26] MEDS: VANCOMYCIN INJ 1,500 MG in SODIUM CHLORID 0.9% 500 ML INJ 500 ML IV SCH (16:30)
[2017-01-28] MEDS ORDERED: PHARMACY ORDERED LAB ONE (16:45)
== END 2017-01-26 18:45 | disposition home health service (06) | DRG 280 ==
LOC: NEPC 00:51 → INTOOBSV 03:52 → NEDA 03:52 → NEPFCDU 09:16 → OBSVTOIN 15:10 → HCIN 18:04 → N04A 01-25 18:09
PROVIDERS: ADMIT Hospitalist; ATTEND Hospitalist
DX: I21.4 Non-ST elevation (NSTEMI) myocardial infarction (principal); J18.9 Pneumonia, unspecified organism; E11.22 Type 2 diabetes mellitus with diabetic chronic kidney disease; D64.9 Anemia, unspecified; I12.9 Hypertensive chronic kidney disease with stage 1 through stage 4 chronic kidney disease, or unspecified chronic kidney disease; E78.5 Hyperlipidemia, unspecified; N18.9 Chronic kidney disease, unspecified; E03.9 Hypothyroidism, unspecified; Z96.652 Presence of left artificial knee joint; I25.10 Atherosclerotic heart disease of native coronary artery without angina pectoris; Z85.828 Personal history of other malignant neoplasm of skin; Z95.1 Presence of aortocoronary bypass graft; Z79.82 Long term (current) use of aspirin; Z79.4 Long term (current) use of insulin; Z91.041 Radiographic dye allergy status
CPT/HCPCS: 71010; 71020; 80048; 80053; 80061; 82550; 82948; 83036; 83605; 83690; 83735; 83880; 84443; 84484; 85025; 85027; 85610; 85730; 87040; 87449; 93005; 93306; 94150; 96360; J0456; J0696; J1644; J1815; J2543; J3370; J7040; J7050

== ENCOUNTER 2017-02-03 01:00 | Inpatient (IN) | payer OTHER, MEDICARE ==
[~2017-02-03] VITALS: Ht 165.1 cm; Wt 74.0 kg
[2017-02-03] VITALS (27 sets, daily range): BP systolic 123–171; BP diastolic 64–96; PULSE 71–106; RESP 15–24; TEMP 97.9–99.2; O2SAT 98–100
[~2017-02-03 01:00] MED LIST changes: +ASPI81CH CHEW; +BENZ100 PO; +DOXY100C PO; +PLAV75TA29 PO; -ZITHTAB PO
[2017-02-03] MEDS ORDERED: SODIUM CHLORIDE 0.9% FLUSH 10 ML FLUSH IVF PRN (01:30)
[2017-02-03] MEDS ORDERED: ASPIRIN 81 MG CHEW TAB PO ONE (01:30)
[2017-02-03] MEDS: NITROGLYCERIN 0.4 MG SL 25 TABS/BTL SL SCH ×3 (01:30→01:40)
[2017-02-03 01:54] LABS: AUTOMATED NEUTROPHIL # 3.1 TH/MM3 (1.8-7.7); BASOPHIL # 0.1 TH/MM3 (0-0.2); BASOPHIL % 0.7 % (0.0-2.0); EOSINOPHIL # 0.4 TH/MM3 (0-0.4); EOSINOPHIL % 5.4 % (0.0-4.0); HEMO FLAGS DIFF FINAL; LYMPH % 39.9 % (9.0-44.0); LYMPHOCYTE # 2.8 TH/MM3 (1.0-4.8); MEAN CELL VOLUME 89.6 FL (80.0-100.0); MEAN CORPUSCULAR HEMOGLOBIN 28.5 PG (27.0-34.0); MEAN CORPUSCULAR HGB CONC 31.8 % (32.0-36.0); MONO % 10.2 % (0.0-8.0); NEUT % 43.8 % (16.0-70.0); PLATELET COUNT 189 TH/MM3 (150-450); RED BLOOD COUNT 3.12 MIL/MM3 (4.00-5.30); RED CELL DISTRIBUTION WIDTH 14.2 % (11.6-17.2)
--- NOTE | 2017-02-03 01:59 | RADRPT ---
EXAM DATE/TIME: 02/03/2017 01:33 [facility] COMPARISON: CHEST PA & LAT, August 08, 2014, 14:09. CHEST PA & LAT, January 26, 2017, 9:53. INDICATIONS : Chest pain tonight MEDICAL HISTORY : Diabetes mellitus type II. Hypertension Hypercholesterolemia. One functioning kidney SURGICAL HISTORY : ENCOUNTER: Initial ACUITY: 1 day PAIN SCORE: 7/10 LOCATION: Bilateral chest FINDINGS: Lungs are grossly clear. No significant effusion suspected. Cardiac contours are stable. Sternotomy w ires are present. 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 CONCLUSION: Stable chest. Ady Mcguire MD on February 03, 2017 at 1:56 Board Certified Radiologist. This report was verified electronically.
[2017-02-03 02:08] LABS: APTT (PATIENT) 25.9 SEC (24.3-30.1); PROTHROMBIN TIME - PATIENT 10.8 SEC (9.8-11.6)
[2017-02-03 02:36] LABS: ALT (GPT) 18 U/L (10-53); ANION GAP 8 MEQ/L (5-15); AST (GOT) 15 U/L (15-37); BICARBONATE 24.7 MEQ/L (21.0-32.0); BLOOD UREA NITROGEN 29 MG/DL (7-18); CHLORIDE 104 MEQ/L (98-107); GLOMERULAR FILTRATION RATE 37 ML/MIN (>89); MAGNESIUM 1.7 MG/DL (1.5-2.5); POTASSIUM 4.3 MEQ/L (3.5-5.1); SODIUM (NA) 137 MEQ/L (136-145)
[2017-02-03 02:40] LABS: ALKALINE PHOSPHATASE 78 U/L (45-117); TOTAL BILIRUBIN ADULT 0.3 MG/DL (0.2-1.0)
[2017-02-03 02:51] LABS: CREATINE KINASE 60 U/L (26-192)
[2017-02-03] MEDS ORDERED: HEPARIN-D5W INJ 250 ML IV SCH (03:15)
[2017-02-03] MEDS ORDERED: SODIUM CHLOR 0.9% 1000 ML INJ 1,000 ML IV SCH (03:16)
--- NOTE | 2017-02-03 03:24 | PD ---
HPI Chief Complaint: Chest Pain Time Seen by Provider: 01:29 Travel History International Travel<30 days: No Contact w/Intl Traveler<30days: No Traveled to known affect area: No History of Present Illness HPI Patient is a 86-year-old female who is Tamaz[place]-speaking presents to emergency room with complaints of chest pain. driver merchandiser Sly was used to communicate with patient. Patient reports that she began to have chest pain about an hour prior to presentation to the emergency room. Patient reports that she felt a "pressure" and "tightness" to her chest, reports that chest pain is not associated with diaphoresis or shortness of breath. Report that pain feels similar to she was admitted earlier this month for chest pain. Patient reports that his remote history of CABG 3 about 20 years ago. Reports history of hypertension, hyperlipidemia, diabetes, chronic kidney disease and chronic anemia. Patient reports that she does have a feed handler, her feed handler is at [employer] which she follows every 6 months - she does not know name of her feed handler [facility] Past Medical History Anxiety: No Depression: No Heart Rhythm Problems: No Cancer: Yes (SKIN CA, HAVE BEEN REMOVED) Cardiac Catheterization: Yes Cardiovascular Problems: Yes High Cholesterol: Yes Chest Pain: No Congestive Heart Failure: No Diabetes: Yes Patient Takes Glucophage: No Diminished Hearing: No Endocrine: Yes Gastrointestinal Disorders: No Genitourinary: Yes (ONE FUNCTIONING KIDNEY) Hypertension: Yes Immune Disorder: No Implanted Vascular Access Dvce: No Musculoskeletal: No Neurologic: No Psychiatric: No Reproductive: No Respiratory: No Immunizations Current: Yes Thyroid Disease: Yes Tetanus Vaccination: Unknown Influenza Vaccination: Yes Menopausal: Yes Past Surgical History Abdominal Surgery: Yes (hernia) Appendectomy: Yes Coronary Artery Bypass Graft: Yes (triple) Other Surgery: Yes (bilateral shoulders, l knee, triple bypass) Social History Alcohol Use: No Tobacco Use: No Substance Use: No Allergies-Medications (Allergen,Severity, Reaction): Coded Allergies: Iodine (Unverified Allergy, Unknown, 02/03/17) Per family "decreased kidney function" Reported Meds & Prescriptions Reported Meds & Active Scripts Active Doxycycline Hyclate 100 Mg Cap 100 Mg PO BID Plavix (Clopidogrel Bisulfate) 75 Mg Tab 75 Mg PO DAILY Tessalon Perles (Benzonatate) 100 Mg Cap 100 Mg PO TID PRN Reported Aspirin 81 Mg Chew 81 Mg CHEW DAILY Novolog Inj (Insulin Aspart) 1,000 Unit/10 Ml Vial 34 Units SQ AC BREAKFAST Novolog Mix 70-30 FlexPen Inj (Insulin Aspart Protam-Asp 70-30 Inj) 300 Unit/3 Ml Pen 20 Units SQ Levothyroxine (Levothyroxine Sodium) 75 Mcg Tab 75 Mcg PO DAILY Omeprazole 40 Mg Cap 40 Mg PO DAILY Metoprolol Tartrate 25 Mg Tab 12.5 Mg PO BID Simvastatin 20 Mg Tab 20 Mg PO DAILY Losartan (Losartan Potassium) 50 Mg Tab 50 Mg PO BID Review of Systems General / Constitutional: No: Fever Eyes: No: Visual changes HENT: No: Headaches Cardiovascular: Positive: Chest Pain or Discomfort Respiratory: No: Shortness of Breath Gastrointestinal: No: Abdominal Pain Genitourinary: No: Dysuria Musculoskeletal: No: Pain Skin: No Rash Neurologic: No: Weakness Psychiatric: No: Depression Endocrine: No: Polydipsia Hematologic/Lymphatic: No: Easy Bruising Physical Exam Narrative GENERAL: Mild distress SKIN: Focused skin assessment warm/dry. HEAD: Atraumatic. Normocephalic. EYES: Pupils equal and round. No scleral icterus. No injection or drainage. ENT: No nasal bleeding or discharge. Mucous membranes pink and moist. NECK: Trachea midline. No JVD. CARDIOVASCULAR: Regular rate and rhythm. No murmur appreciated. RESPIRATORY: No accessory muscle use. Clear to auscultation. Breath sounds equal bilaterally. GASTROINTESTINAL: Abdomen soft, non-tender, nondistended. Hepatic and splenic margins not palpable. MUSCULOSKELETAL: No obvious deformities. No clubbing. No cyanosis. No edema. NEUROLOGICAL: Awake and alert. No obvious cranial nerve deficits. Motor grossly within normal limits. Normal speech. PSYCHIATRIC: Appropriate mood and affect; insight and judgment normal. Data Data Last Documented VS Vital Signs Date Time Temp Pulse Resp B/P Pulse Ox O2 Delivery O2 Flow Rate FiO2 02/03/17 01:33 18 02/03/17 01:07 99.2 101 160/80 99 Orders B-Type Natriuretic Peptide (02/03/17 01:29) Ckmb (Isoenzyme) Profile (02/03/17 01:29) Complete Blood Count With Diff (02/03/17 01:29) Comprehensive Metabolic Panel (02/03/17:29) Magnesium (Mg) (02/03/17 01:29) Prothrombin Time / Inr (Pt) (02/03/17 01:29) Act Partial Throm Time (Ptt) (02/03/17 01:29) Troponin I (02/03/17 01:29) Chest, Single Ap (02/03/17 01:29) Ecg Monitoring (02/03/17 01:29) Iv Access Insert/Monitor (02/03/17 01:29) Oximetry (02/03/17 01:29) Aspirin Chew (Aspirin Chew) (02/03/17 01:30) Sodium Chloride 0.9% Flush (Ns Flush) (02/03/17 01:30) Nitroglycerin Sl (Nitrostat Sl) (02/03/17 01:30) Heparin Infusion WILLIE.Q1H (02/03/17 03:09) Heparin-D5w Inj (Heparin-D5w Inj) (02/03/17 03:15) Act Partial Throm Time (Ptt) (02/03/17 03:09) Cbc No Diff, Includes Plts (02/03/17 03:09) Cbc No Diff, Includes Plts (02/06/17 06:00) Act Partial Throm Time (Ptt) (02/03/17 10:09) Occult Blood (Hemoccult) Stool (02/03/17 03:09) Labs Laboratory Tests Test 02/03/17 01:40 White Blood Count 7.0 TH/MM3 Red Blood Count 3.12 MIL/MM3 Hemoglobin 8.9 GM/DL Hematocrit 28.0 % Mean Corpuscular Volume 89.6 FL Mean Corpuscular Hemoglobin 28.5 PG Mean Corpuscular Hemoglobin 31.8 % Concent Red Cell Distribution Width 14.2 % Platelet Count 189 TH/MM3 Mean Platelet Volume 10.1 FL Neutrophils (%) (Auto) 43.8 % Lymphocytes (%) (Auto) 39.9 % Monocytes (%) (Auto) 10.2 % Eosinophils (%) (Auto) 5.4 % Basophils (%) (Auto) 0.7 % Neutrophils # (Auto) 3.1 TH/MM3 Lymphocytes # (Auto) 2.8 TH/MM3 Monocytes # (Auto) 0.7 TH/MM3 Eosinophils # (Auto) 0.4 TH/MM3 Basophils # (Auto) 0.1 TH/MM3 CBC Comment DIFF FINAL Differential Comment Prothrombin Time 10.8 SEC Prothromb Time International 1.0 RATIO Ratio Activated Partial 25.9 SEC Thromboplast Time Sodium Level 137 MEQ/L Potassium Level 4.3 MEQ/L Chloride Level 104 MEQ/L Carbon Dioxide Level 24.7 MEQ/L Anion Gap 8 MEQ/L Blood Urea Nitrogen 29 MG/DL Creatinine 1.35 MG/DL Estimat Glomerular Filtration 37 ML/MIN Rate Random Glucose 362 MG/DL Calcium Level 9.0 MG/DL Magnesium Level 1.7 MG/DL Total Bilirubin 0.3 MG/DL Aspartate Amino Transf 15 U/L (AST/SGOT) Alanine Aminotransferase 18 U/L (ALT/SGPT) Alkaline Phosphatase 78 U/L Total Creatine Kinase 60 U/L Troponin I 0.10 NG/ML B-Type Natriuretic Peptide 388 PG/ML Total Protein 7.1 GM/DL Albumin 3.5 GM/DL [facility] Medical Decision Making Medical Screen Exam Complete: Yes Emergency Medical Condition: Yes Interpretation(s) EKG at 0113 : Sinus tachycardia at 101 beats per minute, qt/qtc: 366/424, no acute changes Vital Signs Date Time Temp Pulse Resp B/P Pulse Ox O2 Delivery O2 Flow Rate FiO2 02/03/17 01:33 18 02/03/17 01:07 99.2 101 18 160/80 99 Laboratory Tests Test 02/03/17 01:40 White Blood Count 7.0 TH/MM3 (4.0-11.0) Red Blood Count 3.12 MIL/MM3 (4.00-5.30) Hemoglobin 8.9 GM/DL (11.6-15.3) Hematocrit 28.0 % (35.0-46.0) Mean Corpuscular Volume 89.6 FL (80.0-100.0) Mean Corpuscular Hemoglobin 28.5 PG (27.0-34.0) Mean Corpuscular Hemoglobin 31.8 % Concent (32.0-36.0) Red Cell Distribution Width 14.2 % (11.6-17.2) Platelet Count 189 TH/MM3 (150-450) Mean Platelet Volume 10.1 FL (7.0-11.0) Neutrophils (%) (Auto) 43.8 % (16.0-70.0) Lymphocytes (%) (Auto) 39.9 % (9.0-44.0) Monocytes (%) (Auto) 10.2 % (0.0-8.0) Eosinophils (%) (Auto) 5.4 % (0.0-4.0) Basophils (%) (Auto) 0.7 % (0.0-2.0) Neutrophils # (Auto) 3.1 TH/MM3 (1.8-7.7) Lymphocytes # (Auto) 2.8 TH/MM3 (1.0-4.8) Monocytes # (Auto) 0.7 TH/MM3 (0-0.9) Eosinophils # (Auto) 0.4 TH/MM3 (0-0.4) Basophils # (Auto) 0.1 TH/MM3 (0-0.2) CBC Comment DIFF FINAL Differential Comment Prothrombin Time 10.8 SEC (9.8-11.6) Prothromb Time International 1.0 RATIO Ratio Activated Partial 25.9 SEC Thromboplast Time (24.3-30.1) Sodium Level 137 MEQ/L (136-145) Potassium Level 4.3 MEQ/L (3.5-5.1) Chloride Level 104 MEQ/L (98-107) Carbon Dioxide Level 24.7 MEQ/L (21.0-32.0) Anion Gap 8 MEQ/L (5-15) Blood Urea Nitrogen 29 MG/DL (7-18) Creatinine 1.35 MG/DL (0.50-1.00) Estimat Glomerular Filtration 37 ML/MIN (>89) Rate Random Glucose 362 MG/DL (74-106) Calcium Level 9.0 MG/DL (8.5-10.1) Magnesium Level 1.7 MG/DL (1.5-2.5) Total Bilirubin 0.3 MG/DL (0.2-1.0) Aspartate Amino Transf 15 U/L (15-37) (AST/SGOT) Alanine Aminotransferase 18 U/L (10-53) (ALT/SGPT) Alkaline Phosphatase 78 U/L (45-117) Total Creatine Kinase 60 U/L (26-192) Troponin I 0.10 NG/ML (0.02-0.05) B-Type Natriuretic Peptide 388 PG/ML (0-100) Total Protein 7.1 GM/DL (6.4-8.2) Albumin 3.5 GM/DL (3.4-5.0) Last Impressions Chest X-Ray 02/03/17 0129 Signed Impressions: Service Date/Time: Friday, February 03, 2017 01:33 - CONCLUSION: Stable chest. Ady Mcguire MD Differential Diagnosis Differential includes unstable angina, arrhythmia, pneumothorax, pneumonia, acs Narrative Course Patient was placed on a bus driver/monitor upon arrival to the emergency room. An EKG was obtained. Nitroglycerin ordered for chest pain - patient refuses this as patient reports that she is chest pain-free at this time. Laboratory Tests Test 02/03/17 01:40 White Blood Count 7.0 TH/MM3 (4.0-11.0) Red Blood Count 3.12 MIL/MM3 (4.00-5.30) Hemoglobin 8.9 GM/DL (11.6-15.3) Hematocrit 28.0 % (35.0-46.0) Mean Corpuscular Volume 89.6 FL (80.0-100.0) Mean Corpuscular Hemoglobin 28.5 PG (27.0-34.0) Mean Corpuscular Hemoglobin 31.8 % Concent (32.0-36.0) Red Cell Distribution Width 14.2 % (11.6-17.2) Platelet Count 189 TH/MM3 (150-450) Mean Platelet Volume 10.1 FL (7.0-11.0) Neutrophils (%) (Auto) 43.8 % (16.0-70.0) Lymphocytes (%) (Auto) 39.9 % (9.0-44.0) Monocytes (%) (Auto) 10.2 % (0.0-8.0) Eosinophils (%) (Auto) 5.4 % (0.0-4.0) Basophils (%) (Auto) 0.7 % (0.0-2.0) Neutrophils # (Auto) 3.1 TH/MM3 (1.8-7.7) Lymphocytes # (Auto) 2.8 TH/MM3 (1.0-4.8) Monocytes # (Auto) 0.7 TH/MM3 (0-0.9) Eosinophils # (Auto) 0.4 TH/MM3 (0-0.4) Basophils # (Auto) 0.1 TH/MM3 (0-0.2) CBC Comment DIFF FINAL Differential Comment Prothrombin Time 10.8 SEC (9.8-11.6) Prothromb Time International 1.0 RATIO Ratio Activated Partial 25.9 SEC Thromboplast Time (24.3-30.1) Sodium Level 137 MEQ/L (136-145) Potassium Level 4.3 MEQ/L (3.5-5.1) Chloride Level 104 MEQ/L (98-107) Carbon Dioxide Level 24.7 MEQ/L (21.0-32.0) Anion Gap 8 MEQ/L (5-15) Blood Urea Nitrogen 29 MG/DL (7-18) Creatinine 1.35 MG/DL (0.50-1.00) Estimat Glomerular Filtration 37 ML/MIN (>89) Rate Random Glucose 362 MG/DL (74-106) Calcium Level 9.0 MG/DL (8.5-10.1) Magnesium Level 1.7 MG/DL (1.5-2.5) Total Bilirubin 0.3 MG/DL (0.2-1.0) Aspartate Amino Transf 15 U/L (15-37) (AST/SGOT) Alanine Aminotransferase 18 U/L (10-53) (ALT/SGPT) Alkaline Phosphatase 78 U/L (45-117) Total Creatine Kinase 60 U/L (26-192) Troponin I 0.10 NG/ML (0.02-0.05) B-Type Natriuretic Peptide 388 PG/ML (0-100) Total Protein 7.1 GM/DL (6.4-8.2) Albumin 3.5 GM/DL (3.4-5.0) Last Impressions Chest X-Ray 02/03/17 0129 Signed Impressions: Service Date/Time: Friday, February 03, 2017 01:33 - CONCLUSION: Stable chest. Ady Mcguire MD Patient with a positive troponin of 0.10. She was seen by Dr. Guevara during her admission on January 23, 2017 who recommended medical management. We'll start heparin drip. Patient will require admission to the [facility]. Critical Care Narrative Aggregate critical care time was 30 minutes. Time to perform other separately billable procedures was not included in the critical care time. My time did not include minutes spent treating any other patients simultaneously or on activities that did not directly contribute to the patient's treatment. The services I provided to this patient were to treat and/or prevent clinically significant deterioration that could result in: , decompensation, deterioration I provided critical care services requiring my management, as noted below: Chart data review, documentation time, medication orders and management, vital sign assessments/reviewing monitor data, ordering and reviewing lab tests, ordering and interpreting/reviewing x-rays and diagnostic studies, care of the patient and discussion of the patient with the admitting physicians. Mimi Jennings DO Feb 03, 2017 03:24
[2017-02-03] MEDS ORDERED: SODIUM CHLORIDE 0.9% FLUSH 10 ML FLUSH IV FLUSH PRN (03:30)
[2017-02-03] MEDS ORDERED: ONDANSETRON HCL 4 MG/2 ML VIAL IVP PRN (03:30)
[2017-02-03] MEDS ORDERED: MAGNESIUM HYDROXIDE SUSP 30 ML CUP PO PRN (03:30)
[2017-02-03] MEDS ORDERED: BISACODYL 10 MG SUPP RECTAL PRN (03:30)
[2017-02-03] MEDS ORDERED: SENNOSIDES 8.6 MG TAB PO PRN (03:30)
[2017-02-03] MEDS ORDERED: ACETAMINOPHEN 325 MG TAB PO PRN (03:30)
[2017-02-03] MEDS ORDERED: ACETAMINOPHEN/HYDROcodone 325 MG/5 MG TAB PO PRN (03:30)
[2017-02-03] MEDS ORDERED: MORPHINE SULFATE 4 MG/ML INJ IV PRN (03:30)
[2017-02-03] MEDS ORDERED: LACTULOSE SYRUP 20 GM/30 ML CUP PO PRN (03:30)
[2017-02-03 03:57] LABS: HEMATOCRIT 25.8 % (35.0-46.0); MEAN CELL VOLUME 88.3 FL (80.0-100.0); MEAN CORPUSCULAR HEMOGLOBIN 29.4 PG (27.0-34.0); MEAN CORPUSCULAR HGB CONC 33.3 % (32.0-36.0); PLATELET COUNT 179 TH/MM3 (150-450); RED BLOOD COUNT 2.92 MIL/MM3 (4.00-5.30); RED CELL DISTRIBUTION WIDTH 14.2 % (11.6-17.2); REVIEW FLAG FINAL; WHITE BLOOD COUNT 6.4 TH/MM3 (4.0-11.0)
[2017-02-03 04:08] LABS: APTT (PATIENT) 30.7 SEC (24.3-30.1)
[2017-02-03] MEDS ORDERED: NITROGLYCERIN 2% OINT 1 GM PACKET TOPICAL PRN (04:15)
--- NOTE | 2017-02-03 04:36 | HHI.HP ---
HPI Service [facility] Primary [facility] Physician Non-Staff Admission Diagnosis NSTEMI Diagnoses: (1) NSTEMI (non-ST elevated myocardial infarction) Diagnosis: Principal (2) Renal insufficiency Diagnosis: Principal (3) HTN (hypertension) Diagnosis: Principal (4) DM (diabetes mellitus) Diagnosis: Principal Travel History International Travel<30 Days: No Contact w/Intl Traveler <30 Da: No Traveled to Known Affected Are: No History of Present Illness This is an 86-year-old Fijian-speaking female with PMH of HTN, Hyperlipidemia, CAD s/p CABG x3, CKD Stage IV and DM who presented to the ER with complaints of substernal chest pain starting earlier this evening. Reports associated SOB. States symptoms similar to previous, recent admit 01/23-01/26/17 for c/o chest pain as well. Found to have NSTEMI w/ Trop 0.46, peak of 1.70, s/p eval by Dr. Guevara, however not LHC/PCI candidate secondary to worsening anemia and renal function, therefore medical management recommended. On arrival, BP 160/80, HR 101, O2 sat 99% on 2L NC, Temp 99.2. CBC at baseline. Creatinine 1.35, previously 1.22 on 01/24/17. Troponin 0.10. BNP 388. CXR stable. Currently chest pain free. Started on Heparin gtt in ER. Review of Systems Except as stated in HPI: all other systems reviewed are Neg ROS: 14 point review of systems otherwise negative. Past Family Social History Past Medical History PMH: HTN, Hyperlipidemia, CAD s/p CABG x3, CKD Stage IV and DM Past Surgical History PAST SURGICAL HISTORY: Hernia Repair, Appendectomy, CABG, Bilateral Shoulder Surgery, Left Knee Surgery Allergies: Coded Allergies: Iodine (Unverified Allergy, Unknown, 02/03/17) Per family "decreased kidney function" Family History PAST FAMILY HISTORY: Reviewed, positive for DM. Social History PAST SOCIAL HISTORY: Negative for alcohol, tobacco or drugs. Physical Exam Vital Signs Vital Signs Date Time Temp Pulse Resp B/P Pulse Ox O2 Delivery O2 Flow Rate FiO2 02/03/17 03:27 91 18 161/70 99 Nasal Cannula 2 02/03/17 01:33 18 02/03/17 01:07 99.2 101 18 160/80 99 Physical Exam PE: GENERAL: . Pleasant elderly female in no acute distress. HEENT: PERRLA, EOMI. No scleral icterus or conjunctival pallor. No lid lag or facial droop. CARDIOVASCULAR: Regular rate and rhythm. No obvious murmurs to auscultation. No chest tenderness to palpation. RESPIRATORY: No obvious rhonchi or wheezing. Clear to auscultation. Breath sounds equal bilaterally. GASTROINTESTINAL: Abdomen soft, non-tender, nondistended. BS normal. MUSCULOSKELETAL: Extremities without clubbing, cyanosis, or edema. No obvious deformities. NEUROLOGICAL: Awake, alert and oriented x4. No focal neurologic deficits. Moving both upper and lower extremities spontaneously. Laboratory Laboratory Tests Test 02/03/17 02/03/17 01:40 03:30 White Blood Count 7.0 6.4 Red Blood Count 3.12 2.92 Hemoglobin 8.9 8.6 Hematocrit 28.0 25.8 Mean Corpuscular Volume 89.6 88.3 Mean Corpuscular Hemoglobin 28.5 29.4 Mean Corpuscular Hemoglobin 31.8 33.3 Concent Red Cell Distribution Width 14.2 14.2 Platelet Count 189 179 Mean Platelet Volume 10.1 10.6 Neutrophils (%) (Auto) 43.8 Lymphocytes (%) (Auto) 39.9 Monocytes (%) (Auto) 10.2 Eosinophils (%) (Auto) 5.4 Basophils (%) (Auto) 0.7 Neutrophils # (Auto) 3.1 Lymphocytes # (Auto) 2.8 Monocytes # (Auto) 0.7 Eosinophils # (Auto) 0.4 Basophils # (Auto) 0.1 CBC Comment DIFF FINAL Differential Comment Prothrombin Time 10.8 Prothromb Time International 1.0 Ratio Activated Partial 25.9 30.7 Thromboplast Time Sodium Level 137 Potassium Level 4.3 Chloride Level 104 Carbon Dioxide Level 24.7 Anion Gap 8 Blood Urea Nitrogen 29 Creatinine 1.35 Estimat Glomerular Filtration 37 Rate Random Glucose 362 Calcium Level 9.0 Magnesium Level 1.7 Total Bilirubin 0.3 Aspartate Amino Transf 15 (AST/SGOT) Alanine Aminotransferase 18 (ALT/SGPT) Alkaline Phosphatase 78 Total Creatine Kinase 60 Troponin I 0.10 B-Type Natriuretic Peptide 388 Total Protein 7.1 Albumin 3.5 Result Diagram: 02/03/17 0330 02/03/17 0140 Assessment and Plan Problem List: (1) NSTEMI (non-ST elevated myocardial infarction) ICD Code: I21.4 Status: Acute (2) Renal insufficiency ICD Code: N28.9 Status: Acute (3) HTN (hypertension) ICD Code: I10 Status: Chronic (4) DM (diabetes mellitus) ICD Code: E11.9 Status: Chronic Assessment and Plan A/P: 1. NSTEMI: c/o chest pain, Trop 0.10, EKG w/ no acute changes, recent admit -01/26/17 for same w/ Trop 1.70, s/p eval by Dr. Guevara w/ recommendation for medical management secondary to worsening anemia and renal function. Currently chest pain free. S/p Heparin gtt in ER, will continue. Admit to [facility], trend cardiac enzymes, resume home medications. Consult Cardiology for further recommendations. NTG/Morphine prn. 2. Renal Insufficiency: Acute on Chronic. Creatinine 1.35, previously 1.22 on 01/24/17. IVF, will monitor, repeat labs in am. 3. HTN: BP 160's systolic, resume home Metoprolol, monitor BP. 4. DM: Sliding scale w/ Accu-Cheks. Hgb A1c 7.6 on 01/23/17. 5. DVT Prophylaxis: Heparin gtt 6. Social work for d/c planning as needed 7. Case discussed w/ ER physician at length. Physician Certification 2 Midnight Certification Type: Admission for Inpatient Services Order for Inpatient Services The services are ordered in accordance with Medicare regulations or non- Medicare payer requirements, as applicable. In the case of services not specified as inpatient-only, they are appropriately provided as inpatient services in accordance with the 2-midnight benchmark. Estimated LOS (days): 2 days is the estimated time the patient will need to remain in the hospital, assuming treatment plan goals are met and no additional complications. Post-Hospital Plan: Not yet determined Lizbeth Gandara MD Feb 03, 2017 04:36
[2017-02-03] MEDS ORDERED: METOPROLOL TARTRATE 25 MG TAB PO SCH (09:00)
[2017-02-03] MEDS: SODIUM CHLORIDE 0.9% FLUSH 10 ML FLUSH IV FLUSH SCH ×2 (09:00→21:30)
[2017-02-03] MEDS: PANTOPRAZOLE SOD 40 MG DELAYED RELEASE TAB PO SCH (09:33)
[2017-02-03] MEDS: ASPIRIN 81 MG CHEW TAB CHEW SCH (09:34)
[2017-02-03] MEDS: DOCUSATE SODIUM 50 MG/SENNA 8.6 MG TAB PO SCH ×2 (09:35→21:31)
[2017-02-03] MEDS: CLOPIDOGREL 75 MG TAB PO SCH (09:35)
[2017-02-03] MEDS: PRAVASTATIN SOD 40 MG TAB PO SCH (09:36)
[2017-02-03 10:13] LABS: APTT (PATIENT) 70.9 SEC (24.3-30.1)
[2017-02-03 10:27] LABS: ANION GAP 7 MEQ/L (5-15); AST (GOT) 12 U/L (15-37); BICARBONATE 23.9 MEQ/L (21.0-32.0); BLOOD UREA NITROGEN 29 MG/DL (7-18); CHLORIDE 105 MEQ/L (98-107); GLOMERULAR FILTRATION RATE 42 ML/MIN (>89); POTASSIUM 4.8 MEQ/L (3.5-5.1); SODIUM (NA) 136 MEQ/L (136-145)
[2017-02-03 10:29] LABS: ALT (GPT) 17 U/L (10-53)
[2017-02-03 10:33] LABS: ALKALINE PHOSPHATASE 70 U/L (45-117); TOTAL BILIRUBIN ADULT 0.3 MG/DL (0.2-1.0)
[2017-02-03] MEDS ORDERED: METOPROLOL TARTRATE 25 MG TAB PO ONE (11:00)
[2017-02-03] MEDS ORDERED: GLUCAGON 1 MG/ML VIAL OTHER PRN (11:00)
[2017-02-03] MEDS ORDERED: DEXTROSE 50% IN WATER 50 ML VIAL(D50) IV PRN (11:00)
[2017-02-03] MEDS ORDERED: PILL SPLITTER OTHER PRN (11:15)
--- NOTE | 2017-02-03 11:15 | HHI.PR ---
Subjective Remarks Patient seen with her daughter at bedside. She requested her daughter translates for her. Apparently she gets chest pain with minimal activities. Since arrival to the hospital she has not experienced any further chest pain. Objective Vitals Vital Signs Date Time Temp Pulse Resp B/P Pulse Ox O2 Delivery O2 Flow Rate FiO2 02/03/17 07:35 97.9 81 16 123/64 100 02/03/17 04:53 88 02/03/17 04:43 98.1 91 24 165/89 99 02/03/17 03:27 91 18 161/70 99 Nasal Cannula 2 02/03/17 01:33 18 02/03/17 01:07 99.2 101 18 160/80 99 I/O 02/02/17 02/02/17 02/02/17 02/03/17 02/03/17 02/03/17 07:00 15:00 23:00 07:00 15:00 23:00 Intake Total 315 ml Balance 315 ml Intake Oral 120 ml IV Total 195 ml # Voids 1 # Bowel Movements 0 Result Diagram: 02/03/17 0330 02/03/17 0948 Imaging Last Impressions Chest X-Ray 02/03/17 0129 Signed Impressions: Service Date/Time: Friday, February 03, 2017 01:33 - CONCLUSION: Stable chest. Ady Mcguire MD Objective Remarks GENERAL: Elderly female in no apparent distress. CARDIOVASCULAR: Rate in the 120s.Regular rhythm without murmurs, gallops, or rubs. RESPIRATORY: Good respiratory efforts. Breath sounds equal and clear to auscultation bilaterally. GASTROINTESTINAL: Abdomen soft, non-tender, non-distended. Normal active bowel sounds MUSCULOSKELETAL: Extremities without cyanosis, or edema. NEURO: Alert & Oriented. Moves all ext x4 PSYCH: Appropriate mood and affect. A/P Problem List: (1) NSTEMI (non-ST elevated myocardial infarction) ICD Code: I21.4 Status: Acute (2) Renal insufficiency ICD Code: N28.9 Status: Acute (3) HTN (hypertension) ICD Code: I10 Status: Chronic (4) DM (diabetes mellitus) ICD Code: E11.9 Status: Chronic Assessment and Plan 86-year-old female with: Elevated troponin, possible NSTEMI: Unclear when the patient's initial event was. H/O CABG. She presented on 01/23/17 for the same with elevated troponins. At the time, patient did not want invasive measures and cardiology recommended medical management due to anemia and poor renal functions. Patient was started on a heparin drip from the emergency room. Heart rate is intermittently elevated in the 120s. Will double her metoprolol to 25 mg twice a day. NTG/Morphine prn. Further plans per cardiology. Chronic kidney disease: Appear to be stable at this time. Continue to monitor. Discontinue IV fluid. Anemia: Likely secondary to chronic disease. Stable. Continue to monitor. HTN: Continue Metoprolol, dose increased to 25 mg twice a day. DM: Sliding scale w/ Accu-Cheks. Hgb A1c 7.6 on 01/23/17. DVT Prophylaxis: Heparin gtt Mary Flower MD Feb 03, 2017 11:15
[2017-02-03] MEDS: INSULIN ASPART SUPPLEMENTAL SCALE SQ SCH ×3 (11:40→21:00)
[2017-02-03] MEDS: LOSARTAN 50 MG TAB PO SCH ×2 (11:45→21:30)
[2017-02-03] MEDS ORDERED: cloNIDine HCL 0.1 MG TAB PO PRN (11:45)
--- NOTE | 2017-02-03 12:24 | EKG ---
Date Performed: 02/03/2017 Time Performed: 01:13:58 PTAGE: 86 years EKG: SINUS TACHYCARDIA SEPTAL MYOCARDIAL INFARCTION MODERATE T-WAVE ABNORMALITY, CONSIDER LATERA L ISCHEMIA Since previous tracing, no significant change noted ABNORMAL ECG PREVIOUS TRACING : 01/23/2017 08.27.14 DOCTOR: Uriah Delgado Interpretating Date/Time 02/03/2017 12:20:14
[2017-02-03] MEDS: amLODIPine BESYLATE 5 MG TAB PO SCH (13:04)
--- NOTE | 2017-02-03 13:14 | MB ---
cc: MAZIN NOVA MD DATE OF CONSULTATION: 02/03/2017. REASON FOR CONSULTATION: Non S-T elevation myocardial infarction. HISTORY OF PRESENT ILLNESS: Ms. Banegas is an 86-year-old patient of my partner, Dr. Guevara. She presented last week with a non S-T elevation myocardial infarction and was medically managed secondary to her age and anemia. The daughter was present and reports that the patient had an episode of chest pain last night that precipitated her emergency room visit; this has resolved. She has otherwise been quite tired and fatigued. PAST MEDICAL HISTORY: Her past medical history is significant for: 1. Hypertension. 2. Hyperlipidemia. 3. Coronary artery disease status post CABG. 4. Chronic kidney disease stage IV. 5. Diabetes. PAST SURGICAL HISTORY: Her surgical history includes: 1. Hernia repair. 2. Appendectomy. 3. CABG. 4. Bilateral shoulder surgery. 5. Left knee surgery. ALLERGIES: CONTRAST. FAMILY HISTORY: Positive for diabetes. SOCIAL HISTORY: The patient does not drink or smoke. REVIEW OF SYSTEMS: Except for what is mentioned in the history of present illness, all twelve systems are negative. PHYSICAL EXAMINATION: VITAL SIGNS: On physical exam, vital signs are 97.9, 81, 16, 123/64. On arrival, her heart rate was 101 and blood pressure 160/80. GENERAL: In general, she is a well-appearing elderly female who is in no apparent distress. NECK: The neck is free from jugular venous distention. LUNGS: The lungs are clear to auscultation. CARDIOVASCULAR: On cardiovascular examination, she has a normal S1 and S2. I do not appreciate any murmurs, rubs or gallops. ABDOMEN: The abdomen is soft. EXTREMITIES: Free from edema. IMAGING STUDIES: Chest x-ray is stable. LABORATORY DATA: Lab values significant for: Serial troponins of 0.10 and 0.14. From the 12th, her troponin was 1.25. The creatinine today is 1.20. IMPRESSIONS: 1. Chest pain - the patient is status post recent non S-T elevation myocardial infarction. The enzymes do appear to actually be continuing to trend down. The patient is currently pain-free. At this point, we are obviously going to continue with medical management as she is a poor revascularization candidate. I would continue the patient on the aspirin, beta mesha and Plavix. I will add a low dose of amlodipine as a vasodilator. Seth Downing/ALFREDA /11:55 AM /1:09 PM
[2017-02-03 17:57] LABS: APTT (PATIENT) 38.7 SEC (24.3-30.1)
[2017-02-03] MEDS: METOPROLOL TARTRATE 25 MG TAB PO SCH (21:31)
[2017-02-04] VITALS (29 sets, daily range): BP systolic 127–162; BP diastolic 58–75; PULSE 68–96; RESP 16–20; TEMP 98–98.5; O2SAT 95–100
[2017-02-04 05:48] LABS: AUTOMATED NEUTROPHIL # 2.4 TH/MM3 (1.8-7.7); BASOPHIL # 0.1 TH/MM3 (0-0.2); BASOPHIL % 1.1 % (0.0-2.0); EOSINOPHIL # 0.4 TH/MM3 (0-0.4); EOSINOPHIL % 7.1 % (0.0-4.0); HEMO FLAGS DIFF FINAL; LYMPH % 40.9 % (9.0-44.0); LYMPHOCYTE # 2.3 TH/MM3 (1.0-4.8); MEAN CORPUSCULAR HEMOGLOBIN 28.5 PG (27.0-34.0); MEAN CORPUSCULAR HGB CONC 32.4 % (32.0-36.0); MONO % 9.8 % (0.0-8.0); NEUT % 41.1 % (16.0-70.0); PLATELET COUNT 178 TH/MM3 (150-450); RED BLOOD COUNT 2.95 MIL/MM3 (4.00-5.30); RED CELL DISTRIBUTION WIDTH 13.9 % (11.6-17.2); WHITE BLOOD COUNT 5.7 TH/MM3 (4.0-11.0)
[2017-02-04] MEDS: INSULIN ASPART SUPPLEMENTAL SCALE SQ SCH ×4 (06:02→22:11)
[2017-02-04 06:16] LABS: BICARBONATE 24.8 MEQ/L (21.0-32.0); POTASSIUM 4.4 MEQ/L (3.5-5.1)
[2017-02-04] MEDS: DOCUSATE SODIUM 50 MG/SENNA 8.6 MG TAB PO SCH ×2 (08:46→22:07)
[2017-02-04] MEDS: amLODIPine BESYLATE 5 MG TAB PO SCH (08:46)
[2017-02-04] MEDS: ASPIRIN 81 MG CHEW TAB CHEW SCH (08:46)
[2017-02-04] MEDS: LOSARTAN 50 MG TAB PO SCH ×2 (08:46→22:06)
[2017-02-04] MEDS: PRAVASTATIN SOD 40 MG TAB PO SCH (08:46)
[2017-02-04] MEDS: PANTOPRAZOLE SOD 40 MG DELAYED RELEASE TAB PO SCH (08:46)
[2017-02-04] MEDS: CLOPIDOGREL 75 MG TAB PO SCH (08:46)
[2017-02-04] MEDS: SODIUM CHLORIDE 0.9% FLUSH 10 ML FLUSH IV FLUSH SCH ×2 (08:47→22:06)
[2017-02-04] MEDS: METOPROLOL TARTRATE 25 MG TAB PO SCH ×2 (08:47→22:07)
--- NOTE | 2017-02-04 11:40 | PD.CARD.PN ---
Subjective Subjective Remarks PT without complaints Objective Medications Current Medications Medications (Trade) Dose Ordered Sig/Siddharth Route Start Time Stop Time Status Last Admin (NS Flush) 2 ml UNSCH PRN IV FLUSH 02/03/17 03:30 (NS Flush) 2 ml BID IV FLUSH 02/03/17 09:00 02/04/17 08:47 (Zofran Inj) 4 mg Q6H PRN IVP 02/03/17 03:30 (Tylenol) 650 mg Q6H PRN PO 02/03/17 03:30 ([place] 5-325 Mg) 1 tab Q4H PRN PO 02/03/17 03:30 02/03/17 21:35 (Morphine Inj) 2 mg Q3H PRN IV 02/03/17 03:30 (Marisol-Colace) 1 tab BID PO 02/03/17 09:00 02/04/17 08:46 (Milk Of Magnesia Liq) 30 ml Q12H PRN PO 02/03/17 03:30 (Senokot) 17.2 mg Q12H PRN PO 02/03/17 03:30 (Dulcolax Supp) 10 mg DAILY PRN RECTAL 02/03/17 03:30 (Lactulose Liq) 30 ml DAILY PRN PO 02/03/17 03:30 (Nitroglycerin 2% Oint) 0.5 inch Q6HR PRN TOPICAL 02/03/17 04:15 (Aspirin Chew) 81 mg DAILY CHEW 02/03/17 09:00 02/04/17 08:46 (Plavix) 75 mg DAILY PO 02/03/17 09:00 02/04/17 08:46 (Protonix) 40 mg DAILY PO 02/03/17 09:00 02/04/17 08:46 (Pravachol) 40 mg DAILY PO 02/03/17 09:00 02/04/17 08:46 (Lopressor) 25 mg BID PO 02/03/17 21:00 02/04/17 08:47 (D50w (Vial) Inj) 50 ml UNSCH PRN IV 02/03/17 11:00 (Glucagon Inj) 1 mg UNSCH PRN OTHER 02/03/17 11:00 (Pill Splitter) 1 ea UNSCH PRN OTHER 02/03/17 11:15 (Cozaar) 50 mg BID PO 02/03/17 11:45 02/04/17 08:46 (Catapres) 0.1 mg Q6H PRN PO 02/03/17 11:45 (Norvasc) 2.5 mg DAILY PO 02/03/17 12:00 02/04/17 08:46 Vital Signs / I&O Vital Signs Date Time Temp Pulse Resp B/P Pulse Ox O2 Delivery O2 Flow Rate FiO2 02/04/17 08:15 98.1 87 18 162/75 95 02/04/17 07:01 75 02/04/17 06:00 80 02/04/17 05:00 74 02/04/17 04:00 70 02/04/17 03:25 74 18 135/74 95 02/04/17 03:00 80 02/04/17 02:00 72 02/04/17 01:00 74 02/04/17 00:40 80 16 127/58 95 02/04/17 00:00 78 02/03/17 23:00 80 02/03/17 22:00 86 02/03/17 21:00 90 02/03/17 20:00 106 02/03/17 19:45 98.8 88 18 156/67 98 02/03/17 19:00 83 02/03/17 18:00 80 02/03/17 17:00 78 02/03/17 16:00 71 02/03/17 15:15 98.6 74 15 140/75 99 02/03/17 15:00 75 02/03/17 14:00 72 02/03/17 13:05 153/86 02/03/17 13:00 82 02/03/17 12:00 86 I/O 02/03/17 02/03/17 02/03/17 02/04/17 02/04/17 02/04/17 07:00 15:00 23:00 07:00 15:00 23:00 Intake Total 315 ml 1120 ml 240 ml Output Total 400 ml Balance 315 ml 720 ml 240 ml Intake Oral 120 ml 720 ml 240 ml IV Total 195 ml 400 ml Output Urine Total 400 ml # Voids 1 3 0 # Bowel Movements 0 0 0 Physical Exam GENERAL: Well developed, well nourished. No acute distress. HEENT: Jugular venous pressure is normal. CHEST: Lungs clear to auscultation bilaterally. Unlabored respiratory effort. CARDIAC: Regular rate and rhythm without S3, S4, or murmur. ABDOMEN: Soft, nontender, no hepatosplenomegaly. Bowel sounds present. EXTREMITIES: No clubbing, cyanosis, or edema. Laboratory Laboratory Tests Test 02/03/17 02/04/17 17:25 05:28 Activated Partial 38.7 SEC Thromboplast Time Troponin I 0.15 NG/ML White Blood Count 5.7 TH/MM3 Red Blood Count 2.95 MIL/MM3 Hemoglobin 8.4 GM/DL Hematocrit 26.0 % Mean Corpuscular Volume 88.0 FL Mean Corpuscular Hemoglobin 28.5 PG Mean Corpuscular Hemoglobin 32.4 % Concent Red Cell Distribution Width 13.9 % Platelet Count 178 TH/MM3 Mean Platelet Volume 9.8 FL Neutrophils (%) (Auto) 41.1 % Lymphocytes (%) (Auto) 40.9 % Monocytes (%) (Auto) 9.8 % Eosinophils (%) (Auto) 7.1 % Basophils (%) (Auto) 1.1 % Neutrophils # (Auto) 2.4 TH/MM3 Lymphocytes # (Auto) 2.3 TH/MM3 Monocytes # (Auto) 0.6 TH/MM3 Eosinophils # (Auto) 0.4 TH/MM3 Basophils # (Auto) 0.1 TH/MM3 CBC Comment DIFF FINAL Differential Comment Sodium Level 140 MEQ/L Potassium Level 4.4 MEQ/L Chloride Level 107 MEQ/L Carbon Dioxide Level 24.8 MEQ/L Anion Gap 8 MEQ/L Blood Urea Nitrogen 25 MG/DL Creatinine 1.10 MG/DL Estimat Glomerular Filtration 47 ML/MIN Rate Random Glucose 164 MG/DL Calcium Level 9.1 MG/DL Assessment and Plan Assessment and Plan CP- hx CABG, recent NSTEM- asymptomatic on present meds -agree Pt is a poor/not a revasc candidate secondary to comorbid conditions -pt wants to see Dr Guevara tomorrow HTN- better lipids on statin - Jennifer Flanagan MD Feb 04, 2017 11:39
[2017-02-04] MEDS ORDERED: amLODIPine BESYLATE 5 MG TAB PO ONE (11:45)
--- NOTE | 2017-02-04 15:16 | HHI.PR ---
Subjective Remarks Patient reports she is feeling well today. No chest pain or shortness of breath. Daughter is wondering if she at times gets depressed. Objective Vitals Vital Signs Date Time Temp Pulse Resp B/P Pulse Ox O2 Delivery O2 Flow Rate FiO2 02/04/17 14:01 96 02/04/17 13:00 72 02/04/17 12:01 76 02/04/17 11:30 98.0 79 18 139/59 98 02/04/17 11:00 82 02/04/17 10:00 68 02/04/17 09:00 88 02/04/17 08:15 98.1 87 18 162/75 95 02/04/17 08:00 78 02/04/17 07:01 75 02/04/17 06:00 80 02/04/17 05:00 74 02/04/17 04:00 70 02/04/17 03:25 74 18 135/74 95 02/04/17 03:00 80 02/04/17 02:00 72 02/04/17 01:00 74 02/04/17 00:40 80 16 127/58 95 02/04/17 00:00 78 02/03/17 23:00 80 02/03/17 22:00 86 02/03/17 21:00 90 02/03/17 20:00 106 02/03/17 19:45 98.8 88 18 156/67 98 02/03/17 19:00 83 02/03/17 18:00 80 02/03/17 17:00 78 02/03/17 16:00 71 02/03/17 15:15 98.6 74 15 140/75 99 I/O 02/03/17 02/03/17 02/03/17 02/04/17 02/04/17 02/04/17 07:00 15:00 23:00 07:00 15:00 23:00 Intake Total 315 ml 1120 ml 240 ml Output Total 400 ml Balance 315 ml 720 ml 240 ml Intake Oral 120 ml 720 ml 240 ml IV Total 195 ml 400 ml Output Urine Total 400 ml # Voids 1 3 0 # Bowel Movements 0 0 0 Result Diagram: 02/04/1728 02/04/17527 Objective Remarks GENERAL: Elderly female in no apparent distress. CARDIOVASCULAR: Rate in 80s. Regular rhythm without murmurs, gallops, or rubs. RESPIRATORY: Good respiratory efforts. Breath sounds equal and clear to auscultation bilaterally. GASTROINTESTINAL: Abdomen soft, non-tender, non-distended. Normal active bowel sounds MUSCULOSKELETAL: Extremities without cyanosis, or edema. NEURO: Alert & Oriented. Moves all ext x4 PSYCH: Appropriate mood and affect. A/P Problem List: (1) NSTEMI (non-ST elevated myocardial infarction) ICD Code: I21.4 Status: Acute (2) Renal insufficiency ICD Code: N28.9 Status: Acute (3) HTN (hypertension) ICD Code: I10 Status: Chronic (4) DM (diabetes mellitus) ICD Code: E11.9 Status: Chronic Assessment and Plan 86-year-old female with: Elevated troponin, Recent NSTEMI: H/O CABG. She presented on 01/23/17 for the same with elevated troponins. At the time, patient did not want invasive measures and cardiology recommended medical management due to anemia and poor renal functions. Continue metoprolol 25 mg twice a day. NTG/Morphine prn. Norvasc Chronic kidney disease: Appear to be stable at this time. Anemia: Likely secondary to chronic disease. Stable. HTN: Continue Metoprolol, dose increased to 25 mg twice a day. Continue losartan. Norvasc added. BP better controlled. DM: Sliding scale w/ Accu-Cheks. Hgb A1c 7.6 on 01/23/17. DVT Prophylaxis: Heparin Discharge Planning Plan to discharge tomorrow after the patient is seen by Dr. Guevara if remain stable. Mary Flower MD Feb 04, 2017 15:16
[2017-02-05] VITALS (11 sets, daily range): BP systolic 134–138; BP diastolic 68–72; PULSE 72–88; RESP 16–18; TEMP 98.1–99.5; O2SAT 96–97
[2017-02-05] MEDS: INSULIN ASPART SUPPLEMENTAL SCALE SQ SCH (05:56)
--- NOTE | 2017-02-05 08:08 | PD.CARD.PN ---
Subjective Subjective Remarks Pt without complaints Objective Medications Current Medications Medications (Trade) Dose Ordered Sig/Siddharth Route Start Time Stop Time Status Last Admin (NS Flush) 2 ml UNSCH PRN IV FLUSH 02/03/17 03:30 (NS Flush) 2 ml BID IV FLUSH 02/03/17 09:00 02/04/17 22:06 (Zofran Inj) 4 mg Q6H PRN IVP 02/03/17 03:30 (Tylenol) 650 mg Q6H PRN PO 02/03/17 03:30 ([place] 5-325 Mg) 1 tab Q4H PRN PO 02/03/17 03:30 02/03/17 21:35 (Morphine Inj) 2 mg Q3H PRN IV 02/03/17 03:30 (Marisol-Colace) 1 tab BID PO 02/03/17 09:00 02/04/17 22:07 (Milk Of Magnesia Liq) 30 ml Q12H PRN PO 02/03/17 03:30 (Senokot) 17.2 mg Q12H PRN PO 02/03/17 03:30 (Dulcolax Supp) 10 mg DAILY PRN RECTAL 02/03/17 03:30 (Lactulose Liq) 30 ml DAILY PRN PO 02/03/17 03:30 (Nitroglycerin 2% Oint) 0.5 inch Q6HR PRN TOPICAL 02/03/17 04:15 (Aspirin Chew) 81 mg DAILY CHEW 02/03/17 09:00 02/04/17 08:46 (Plavix) 75 mg DAILY PO 02/03/17 09:00 02/04/17 08:46 (Protonix) 40 mg DAILY PO 02/03/17 09:00 02/04/17 08:46 (Pravachol) 40 mg DAILY PO 02/03/17 09:00 02/04/17 08:46 (Lopressor) 25 mg BID PO 02/03/17 21:00 02/04/17 22:07 (D50w (Vial) Inj) 50 ml UNSCH PRN IV 02/03/17 11:00 (Glucagon Inj) 1 mg UNSCH PRN OTHER 02/03/17 11:00 (Pill Splitter) 1 ea UNSCH PRN OTHER 02/03/17 11:15 (Cozaar) 50 mg BID PO 02/03/17 11:45 02/04/17 22:06 (Catapres) 0.1 mg Q6H PRN PO 02/03/17 11:45 (Norvasc) 5 mg DAILY PO 02/05/17 09:00 Vital Signs / I&O Vital Signs Date Time Temp Pulse Resp B/P Pulse Ox O2 Delivery O2 Flow Rate FiO2 02/05/17 04:29 79 16 138/71 97 02/05/17 03:00 77 02/05/17 02:00 76 02/05/17 01:00 88 02/05/17 00:00 72 02/04/17 23:00 76 18 132/69 98 02/04/17 23:00 79 02/04/17 22:00 72 02/04/17 21:00 78 02/04/17 20:00 80 02/04/17 19:00 87 02/04/17 19:00 98.5 83 16 132/72 100 02/04/17 18:01 82 02/04/17 17:01 80 02/04/17 16:00 78 02/04/17 15:30 98.2 77 20 131/68 100 02/04/17 15:01 80 02/04/17 14:01 96 02/04/17 13:00 72 02/04/17 12:01 76 02/04/17 11:30 98.0 79 18 139/59 98 02/04/17 11:00 82 02/04/17 10:00 68 02/04/17 09:00 88 02/04/17 08:15 98.1 87 18 162/75 95 I/O 02/04/17 02/04/17 02/04/17 02/05/17 02/05/17 02/05/17 07:00 15:00 23:00 07:00 15:00 23:00 Intake Total 240 ml 740 ml 240 ml Output Total 400 ml Balance 240 ml 340 ml 240 ml Intake Oral 240 ml 740 ml 240 ml Output Urine Total 400 ml # Voids 0 4 2 # Bowel Movements 0 0 0 Physical Exam GENERAL: Well developed, well nourished. No acute distress. HEENT: Jugular venous pressure is normal. CHEST: Lungs clear to auscultation bilaterally. Unlabored respiratory effort. CARDIAC: Regular rate and rhythm without S3, S4, or murmur. ABDOMEN: Soft, nontender, no hepatosplenomegaly. Bowel sounds present. EXTREMITIES: No clubbing, cyanosis, 1+ edema. Assessment and Plan Assessment and Plan CP- hx CABG, recent NSTEM- asymptomatic on present meds -agree Pt is a poor/not a revasc candidate secondary to comorbid conditions -Dr Guevara is out today edema- mild today, check ECHO EF HTN- better lipids- on statin, lipids done last week - Jennifer Flanagan MD Feb 05, 2017 08:08
[2017-02-05] MEDS: CLOPIDOGREL 75 MG TAB PO SCH (08:15)
[2017-02-05] MEDS: PANTOPRAZOLE SOD 40 MG DELAYED RELEASE TAB PO SCH (08:15)
[2017-02-05] MEDS: PRAVASTATIN SOD 40 MG TAB PO SCH (08:15)
[2017-02-05] MEDS: METOPROLOL TARTRATE 25 MG TAB PO SCH (08:16)
[2017-02-05] MEDS: ASPIRIN 81 MG CHEW TAB CHEW SCH (08:16)
[2017-02-05] MEDS: DOCUSATE SODIUM 50 MG/SENNA 8.6 MG TAB PO SCH (08:16)
[2017-02-05] MEDS: SODIUM CHLORIDE 0.9% FLUSH 10 ML FLUSH IV FLUSH SCH (08:16)
[2017-02-05] MEDS: LOSARTAN 50 MG TAB PO SCH (08:16)
[2017-02-05] MEDS ORDERED: amLODIPine BESYLATE 5 MG TAB PO SCH (09:00)
[2017-02-05] MEDS ORDERED: METO25TA3 PO (10:14)
[2017-02-05] MEDS ORDERED: AMLO5 PO (10:14)
--- NOTE | 2017-02-05 10:15 | HHI.DCPOC ---
Discharge Care Plan Diagnosis: (1) Angina pectoris (2) DM (diabetes mellitus) (3) HTN (hypertension) (4) Renal insufficiency (5) Elevated troponin Goals to Promote Your Health * To prevent worsening of your condition and complications * To maintain your health at the optimal level Directions to Meet Your Goals Take your medications as prescribed Follow your dietary instruction Follow activity as directed Keep your appointments as scheduled Take your immunizations and boosters as scheduled If your symptoms worsen call your PCP, if no PCP go to Urgent Care Center or Emergency Room Smoking is Dangerous to Your Health. Avoid second hand smoke Call the 24-hour hour crisis hotline for domestic abuse at Mary Flower MD Feb 05, 2017 10:15
--- NOTE | 2017-02-05 10:20 | HHI.DS ---
Discharge Summary Admission Date Feb 03, 2017 at 03:20 Discharge Date: Feb 05, 2017 Admitting Diagnosis NSTEMI (1) NSTEMI (non-ST elevated myocardial infarction) ICD Code: I21.4 (2) Renal insufficiency ICD Code: N28.9 (3) HTN (hypertension) ICD Code: I10 (4) DM (diabetes mellitus) ICD Code: E11.9 Procedures None Brief History - From Admission This is an 86-year-old Citizen Of [place]-speaking female with PMH of HTN, Hyperlipidemia, CAD s/p CABG x3, CKD Stage IV and DM who presented to the ER with complaints of substernal chest pain starting earlier this evening. Reports associated SOB. States symptoms similar to previous, recent admit 01/23-01/26/17 for c/o chest pain as well. Found to have NSTEMI w/ Trop 0.46, peak of 1.70, s/p eval by Dr. Guevara, however not LHC/PCI candidate secondary to worsening anemia and renal function, therefore medical management recommended. On arrival, BP 160/80, HR 101, O2 sat 99% on 2L NC, Temp 99.2. CBC at baseline. Creatinine 1.35, previously 1.22 on 01/24/17. Troponin 0.10. BNP 388. CXR stable. Currently chest pain free. Started on Heparin gtt in ER. CBC/BMP: 02/04/17 0528 02/04/17 0528 Significant Findings Laboratory Tests Test 02/03/17 02/03/17 02/03/17 02/03/17 01:40 03:30 09:48 17:25 Red Blood Count 3.12 MIL/MM3 2.92 MIL/MM3 (4.00-5.30) (4.00-5.30) Hemoglobin 8.9 GM/DL 8.6 GM/DL (11.6-15.3) (11.6-15.3) Hematocrit 28.0 % 25.8 % (35.0-46.0) (35.0-46.0) Mean Corpuscular Hemoglobin 31.8 % Concent (32.0-36.0) Monocytes (%) (Auto) 10.2 % (0.0-8.0) Eosinophils (%) (Auto) 5.4 % (0.0-4.0) Blood Urea Nitrogen 29 MG/DL (7-18) 29 MG/DL (7-18) Creatinine 1.35 MG/DL 1.20 MG/DL (0.50-1.00) (0.50-1.00) Estimat Glomerular Filtration 37 ML/MIN (>89) 42 ML/MIN (>89) Rate Random Glucose 362 MG/DL 285 MG/DL (74-106) (74-106) Troponin I 0.10 NG/ML 0.14 NG/ML 0.15 NG/ML (0.02-0.05) (0.02-0.05) (0.02-0.05) B-Type Natriuretic Peptide 388 PG/ML (0-100) Activated Partial 30.7 SEC 70.9 SEC 38.7 SEC Thromboplast Time (24.3-30.1) (24.3-30.1) (24.3-30.1) Aspartate Amino Transf 12 U/L (15-37) (AST/SGOT) Albumin 3.3 GM/DL (3.4-5.0) Test 02/04/17 05:28 Red Blood Count 2.95 MIL/MM3 (4.00-5.30) Hemoglobin 8.4 GM/DL (11.6-15.3) Hematocrit 26.0 % (35.0-46.0) Monocytes (%) (Auto) 9.8 % (0.0-8.0) Eosinophils (%) (Auto) 7.1 % (0.0-4.0) Blood Urea Nitrogen 25 MG/DL (7-18) Creatinine 1.10 MG/DL (0.50-1.00) Estimat Glomerular Filtration 47 ML/MIN (>89) Rate Random Glucose 164 MG/DL (74-106) Imaging Last Impressions Chest X-Ray 02/03/17 0129 Signed Impressions: Service Date/Time: Friday, February 03, 2017 01:33 - CONCLUSION: Stable chest. Ady Mcguire MD PE at Discharge GENERAL: Elderly female in no apparent distress. CARDIOVASCULAR: Rate in 80s. Regular rhythm without murmurs, gallops, or rubs. RESPIRATORY: Good respiratory efforts. Breath sounds equal and clear to auscultation bilaterally. GASTROINTESTINAL: Abdomen soft, non-tender, non-distended. Normal active bowel sounds MUSCULOSKELETAL: Extremities without cyanosis, or edema. NEURO: Alert & Oriented. Moves all ext x4 PSYCH: Appropriate mood and affect. Pt update on day of discharge Patient feeling well. No chest pain. Daughter at bedside. They have an appointment with [employer], Dr. Guevara tomorrow. Hospital Course 86-year-old female admitted and treated for the following: Elevated troponin, Recent NSTEMI: H/O CABG. She presented on 01/23/17 for the same with elevated troponins. At the time, patient did not want invasive measures and cardiology recommended medical management due to anemia and poor renal functions. Overall the patient deemed to be a poor revascularization candidate. Shouldn't manage medically. She is to continue on aspirin, Plavix, metoprolol increased to 25 mg twice a day. Norvasc added for better blood pressure control. Chest pain completely resolved. The patient is discharged home to follow-up with her travel insurance agent tomorrow. A 2-D echo was done and can be followed by her travel insurance agent tomorrow. Chronic kidney disease: Remains stable. Outpatient follow-up is advised. Anemia: Likely secondary to chronic disease. Stable. Outpatient follow-up advised HTN: Continue Metoprolol, dose increased to 25 mg twice a day. Continue losartan. Norvasc added. BP controlled by the time of discharge. DM: Sliding scale w/ Accu-Cheks. Hgb A1c 7.6 on 01/23/17. Patient to resume home dose insulin regimen on discharge. Pt Condition on Discharge: Good Discharge Disposition: Discharge Home Discharge Time: > 30 minutes Discharge Instructions DIET: Follow Instructions for: Heart Healthy Diet Activities you can perform: Regular-No Restrictions Follow up Referrals: Cardiology - Next Day with Josh Rodriguez MD New Medications: Amlodipine (Norvasc) 5 Mg Tab 5 MG PO DAILY #30 TAB Changed Medications: Metoprolol Tartrate (Metoprolol Tartrate) 25 Mg Tab 25 MG PO BID #60 Ref 0 TAB (Changed from: 12.5 MG) Continued Medications: Aspirin (Aspirin) 81 Mg Chew 81 MG CHEW DAILY Ref 0 TAB Benzonatate (Tessalon Perles) 100 Mg Cap 100 MG PO TID PRN cough #20 CAP Clopidogrel (Plavix) 75 Mg Tab 75 MG PO DAILY Heart #30 TAB Insulin Aspart Inj (Novolog Inj) 1,000 Unit/10 Ml Vial 34 UNITS SQ AC BREAKFAST Blood Sugar Management #10 Ref 0 ML Insulin Aspart Protam-Asp 70-30 Inj (Novolog Mix 70-30 FlexPen Inj) 300 Unit/3 Ml Pen 20 UNITS SQ Blood Sugar Management #1 Ref 0 PEN Levothyroxine (Levothyroxine) 75 Mcg Tab 75 MCG PO DAILY Thyroid #30 Ref 0 TAB Losartan (Losartan) 50 Mg Tab 50 MG PO BID Blood Pressure Management #30 Ref 0 TAB Omeprazole (Omeprazole) 40 Mg Cap 40 MG PO DAILY #30 Ref 0 CAP Simvastatin (Simvastatin) 20 Mg Tab 20 MG PO DAILY Cholesterol Management #30 Ref 0 TAB Discontinued Medications: Doxycycline Hyclate (Doxycycline Hyclate) 100 Mg Cap 100 MG PO BID Infection #10 Ref 0 CAP Mary Flower MD Feb 05, 2017 10:20
--- NOTE | 2017-02-05 12:52 | ECHRPT ---
Indication: EF CHF CONCLUSIONS Normal left ventricular size. Mild concentric left ventricular hypertrophy. The left ventricular systolic function is low normal with an estimated ejection fraction in the rang e of 50- 55%. Mitral annular calcification is present. [id number] mitral valve regurgitation. Aortic valve sclerosis is present. Trace aortic valve regurgitation. There is moderate to severe tricuspid valve regurgitation. There is estimated mild pulmonary hypertension present (48 mmHg). Mild pulmonary valve regurgitation. BP: 162 / 75 HR: 96 Rhythm: Sinus MEASUREMENTS (Male / Female) Normal Values Technical Quality:Good 2D ECHO LV Diastolic Diameter PLAX 4.2 cm 4.2 - 5.9 / 3.9 - 5.3 cm LV Systolic Diameter PLAX 3.3 cm IVS Diastolic Thickness 1.2 cm 0.6 - 1.0 / 0.6 - 0.9 cm LVPW Diastolic Thickness 0.6 cm 0.6 - 1.0 / 0.6 - 0.9 cm LV Relative Wall Thickness 0.4 DOPPLER MR Peak Velocity 526.0 cm/s MR Peak Gradient 110.7 mmHg TR Peak Velocity 326.0 cm/s TR Peak Gradient 42.5 mmHg FINDINGS LEFT VENTRICLE Normal left ventricular size. Mild concentric left ventricular hypertrophy. The left ventricular systolic function is low normal with an estimated ejection fraction in the rang e of 50- 55%. RIGHT VENTRICLE Normal right ventricular size and systolic function. LEFT ATRIUM The left atrial size is upper limits of normal. RIGHT ATRIUM The right atrial size is normal. ATRIAL SEPTUM Normal atrial septal thickness without atrial level shunting by limited color doppler interrogation. AORTA The aortic root and proximal ascending aorta are normal in size on limited imaging. MITRAL VALVE Mitral annular calcification is present. [id number] mitral valve regurgitation. AORTIC VALVE Aortic valve sclerosis is present. Trace aortic valve regurgitation. TRICUSPID VALVE There is moderate to severe tricuspid valve regurgitation. There is estimated mild pulmonary hypertension present (48 mmHg). PULMONARY VALVE Mild pulmonary valve regurgitation. VESSELS The inferior vena cava is normal in size. PERICARDIUM No pericardial effusion. Guy Maldonado MD, FACC (Electronically Signed) Final Date:05 February 2017 12:51
== END 2017-02-05 12:29 | disposition home or self-care (01) | DRG 281 ==
LOC: NEPC 01:00 → NEDA 03:20 → HCIS 04:31
PROVIDERS: ADMIT Family Medicine; ATTEND Family Medicine
DX: I21.4 Non-ST elevation (NSTEMI) myocardial infarction (principal); N18.4 Chronic kidney disease, stage 4 (severe); D63.8 Anemia in other chronic diseases classified elsewhere; E11.22 Type 2 diabetes mellitus with diabetic chronic kidney disease; E78.5 Hyperlipidemia, unspecified; I25.10 Atherosclerotic heart disease of native coronary artery without angina pectoris; I12.9 Hypertensive chronic kidney disease with stage 1 through stage 4 chronic kidney disease, or unspecified chronic kidney disease; Z95.1 Presence of aortocoronary bypass graft; Z79.4 Long term (current) use of insulin; Z79.82 Long term (current) use of aspirin; Z79.02 Long term (current) use of antithrombotics/antiplatelets
CPT/HCPCS: 71010; 76937; 80048; 80053; 82550; 82948; 83735; 83880; 84484; 85025; 85027; 85610; 85730; 93005; 93308; J1815; J7030

== ENCOUNTER 2017-02-13 03:28 | Emergency (ER) | payer OTHER, MEDICAID ==
[~2017-02-13 03:28] MED LIST changes: +AMLO5 PO; -ASPI81CH CHEW; +ASPI81CH PO; -DOXY100C PO
[2017-02-13 03:31] VITALS: BP 143/65; PULSE 92; RESP 18; TEMP 98.3; O2SAT 97
[2017-02-13] MEDS ORDERED: ONDANSETRON HCL 4 MG/2 ML VIAL IV PUSH ONE (03:45)
[2017-02-13] MEDS ORDERED: SODIUM CHLOR 0.9% 1000 ML INJ 1,000 ML IV SCH (03:45)
--- NOTE | 2017-02-13 03:51 | PD ---
HPI Chief Complaint: General Weakness Time Seen by Provider: 03:39 Travel History International Travel<30 days: No Contact w/Intl Traveler<30days: No Traveled to known affect area: No History of Present Illness HPI 86-year-old female complains of nausea and generalized malaise. Patient states the symptoms started tonight. Patient denies any headache. Patient denies any chest pain or shortness of breath. Patient denies abdominal pain. Patient denies any fever chills. Patient denies any back pain. Patient complains of urinary frequency. Patient denies any dysuria. Patient status post NSTEMI a week ago. Patient also has history of hypertension, diabetes, CAD status post CABG 3, chronic kidney disease, hyperlipidemia. PFSH Past Medical History Anxiety: No Depression: No Heart Rhythm Problems: No Cancer: Yes (SKIN CA, HAVE BEEN REMOVED) Cardiac Catheterization: Yes Cardiovascular Problems: Yes High Cholesterol: Yes Chest Pain: No Congestive Heart Failure: No Diabetes: Yes Diminished Hearing: No Endocrine: Yes Gastrointestinal Disorders: No Genitourinary: Yes (ONE FUNCTIONING KIDNEY) Hypertension: Yes Immune Disorder: No Implanted Vascular Access Dvce: No Musculoskeletal: No Neurologic: No Psychiatric: No Reproductive: No Respiratory: No Immunizations Current: Yes Thyroid Disease: Yes Menopausal: Yes Past Surgical History Abdominal Surgery: Yes (hernia) Appendectomy: Yes Coronary Artery Bypass Graft: Yes (triple) Other Surgery: Yes (bilateral shoulders, l knee, triple bypass) Social History Alcohol Use: No Tobacco Use: No Substance Use: No Allergies-Medications (Allergen,Severity, Reaction): Coded Allergies: Iodine (Unverified Allergy, Unknown, 02/03/17) Per family "decreased kidney function" Reported Meds & Prescriptions Reported Meds & Active Scripts Active Norvasc (Amlodipine Besylate) 5 Mg Tab 5 Mg PO DAILY Metoprolol Tartrate 25 Mg Tab 25 Mg PO BID Plavix (Clopidogrel Bisulfate) 75 Mg Tab 75 Mg PO DAILY Reported Aspirin 81 Mg Chew 81 Mg CHEW DAILY Novolog Inj (Insulin Aspart) 1,000 Unit/10 Ml Vial 34 Units SQ AC BREAKFAST Novolog Mix 70-30 FlexPen Inj (Insulin Aspart Protam-Asp 70-30 Inj) 300 Unit/3 Ml Pen 20 Units SQ Levothyroxine (Levothyroxine Sodium) 75 Mcg Tab 75 Mcg PO DAILY Omeprazole 40 Mg Cap 40 Mg PO DAILY Simvastatin 20 Mg Tab 20 Mg PO DAILY Losartan (Losartan Potassium) 50 Mg Tab 50 Mg PO BID Review of Systems General / Constitutional: No: Fever Eyes: No: Visual changes HENT: No: Headaches Cardiovascular: No: Chest Pain or Discomfort Respiratory: No: Shortness of Breath Gastrointestinal: Positive: Nausea, No: Abdominal Pain Genitourinary: No: Dysuria Musculoskeletal: No: Pain Skin: No Rash Neurologic: No: Weakness Psychiatric: No: Depression Endocrine: No: Polydipsia Hematologic/Lymphatic: No: Easy Bruising Physical Exam Narrative GENERAL: Well-nourished, well-developed patient. SKIN: Focused skin assessment warm/dry. HEAD: Normocephalic. EYES: No scleral icterus. No injection or drainage. NECK: Supple, trachea midline. No JVD or lymphadenopathy. CARDIOVASCULAR: Regular rate and rhythm without murmurs, gallops, or rubs. RESPIRATORY: Breath sounds equal bilaterally. No accessory muscle use. GASTROINTESTINAL: Abdomen soft, non-tender, nondistended. MUSCULOSKELETAL: No cyanosis, or edema. BACK: Nontender without obvious deformity. No CVA tenderness. Neurologic exam: Patient awake and alert oriented 3. No obvious focal neurological deficit. Data Data Last Documented VS Vital Signs Date Time Temp Pulse Resp B/P Pulse Ox O2 Delivery O2 Flow Rate FiO2 02/13/17 04:56 76 18 149/66 95 Room Air 02/13/17 04:02 99.7 Orders Electrocardiogram (02/13/17 03:39) Complete Blood Count With Diff (02/13/17 03:39) Comprehensive Metabolic Panel (02/13/17 03:39) Creatine Kinase (Cpk) (02/13/17 03:39) Troponin I (02/13/17 03:39) Prothrombin Time / Inr (Pt) (02/13/17 03:39) Act Partial Throm Time (Ptt) (02/13/17 03:39) Lipase (02/13/17 03:39) Urinalysis - C+S If Indicated (02/13/17 03:39) Chest, Single Ap (02/13/17 03:39) Iv Access Insert/Monitor (02/13/17 03:39) Ecg Monitoring (02/13/17 03:39) Oximetry (02/13/17 03:39) Sodium Chlor 0.9% 1000 Ml Inj (Ns 1000 M (02/13/17 03:45) Ondansetron Inj (Zofran Inj) (02/13/17 03:45) Urine Culture (02/13/17 03:50) Ceftriaxone Inj (Rocephin Inj) (02/13/17 04:30) Sodium Chlorid 0.9% 500 Ml Inj (Ns 500 M (02/13/17 05:00) Labs Laboratory Tests Test 02/13/17 02/13/17 02/13/17 03:40 03:50 04:30 Prothrombin Time 11.2 SEC Prothromb Time International 1.0 RATIO Ratio Activated Partial 30.9 SEC Thromboplast Time Sodium Level 137 MEQ/L Potassium Level 5.0 MEQ/L Chloride Level 101 MEQ/L Carbon Dioxide Level 25.5 MEQ/L Anion Gap 11 MEQ/L Blood Urea Nitrogen 56 MG/DL Creatinine 1.39 MG/DL Estimat Glomerular Filtration 36 ML/MIN Rate Random Glucose 169 MG/DL Calcium Level 8.7 MG/DL Total Bilirubin 0.2 MG/DL Aspartate Amino Transf 16 U/L (AST/SGOT) Alanine Aminotransferase 17 U/L (ALT/SGPT) Alkaline Phosphatase 60 U/L Total Creatine Kinase 58 U/L Troponin I 0.03 NG/ML Total Protein 6.3 GM/DL Albumin 3.0 GM/DL Lipase 121 U/L Urine Color YELLOW Urine Turbidity CLEAR Urine pH 6.5 Urine Specific [place] 1.016 Urine Protein NEG mg/dL Urine Glucose (UA) NEG mg/dL Urine Ketones NEG mg/dL Urine Occult Blood NEG Urine Nitrite POS Urine Bilirubin NEG Urine Urobilinogen LESS THAN 2.0 MG/DL Urine Leukocyte Esterase LARGE Urine RBC LESS THAN 1 /hpf Urine WBC 84 /hpf Urine WBC Clumps FEW Urine Squamous Epithelial <1 /hpf Cells Urine Bacteria MOD /hpf Microscopic Urinalysis Comment CULTURE INDICATED White Blood Count 7.6 TH/MM3 Red Blood Count 2.93 MIL/MM3 Hemoglobin 8.4 GM/DL Hematocrit 25.2 % Mean Corpuscular Volume 86.1 FL Mean Corpuscular Hemoglobin 28.7 PG Mean Corpuscular Hemoglobin 33.3 % Concent Red Cell Distribution Width 13.9 % Platelet Count 166 TH/MM3 Mean Platelet Volume 10.7 FL Neutrophils (%) (Auto) 54.3 % Lymphocytes (%) (Auto) 30.1 % Monocytes (%) (Auto) 11.0 % Eosinophils (%) (Auto) 3.9 % Basophils (%) (Auto) 0.7 % Neutrophils # (Auto) 4.1 TH/MM3 Lymphocytes # (Auto) 2.3 TH/MM3 Monocytes # (Auto) 0.8 TH/MM3 Eosinophils # (Auto) 0.3 TH/MM3 Basophils # (Auto) 0.1 TH/MM3 CBC Comment DIFF FINAL Differential Comment MDM Medical Decision Making Medical Screen Exam Complete: Yes Emergency Medical Condition: Yes Interpretation(s) 4:20 AM. Last Impressions Chest X-Ray 02/13/17 0339 Signed Impressions: Service Date/Time: Monday, February 13, 2017 03:39 - CONCLUSION: Mild cardiomegaly with no acute cardiopulmonary disease. Ajith Ken MD 4:20 AM. EKG shows sinus rhythm nonspecific ST-T wave change. UA positive with WBC and bacteria. Differential Diagnosis Differential diagnosis including viral syndrome, gastroenteritis, gastritis, PUD , pancreatitis, cholecystitis, colitis, UTI, pyelonephritis, nephrolithiasis, ND. Narrative Course 86-year-old female with generalized malaise and nausea and urinary frequency. Rocephin 1 g IV given. Diagnosis Primary Impression: UTI (urinary tract infection) Qualified Code: N30.00 - Acute cystitis without hematuria Additional Impressions: Dehydration Chronic kidney disease Qualified Code: N18.2 - Stage 2 chronic kidney disease Patient Instructions: General Instructions Additional Instructions: Take medications as directed. Follow-up with personal physician. Encourage by mouth fluid. Return if worse. Med/Other Pt SpecificInfo: Prescription(s) given Scripts Sulfamethoxazole-Trimethoprim (Bactrim DS)800-160 Mg Tab1 Tab PO BID #14 TAB Prov:Loi Franz MD 02/13/17 Disposition: 01 DISCHARGE HOME Condition: Stable Loi Franz MD Feb 13, 2017 03:51
[2017-02-13 04:02] VITALS: BP 149/66; PULSE 89; RESP 16; TEMP 99.7; O2SAT 97
--- NOTE | 2017-02-13 04:09 | RADRPT ---
EXAM DATE/TIME: 02/13/2017 03:39 [facility] COMPARISON: CHEST SINGLE AP, February 03, 2017, 1:33. INDICATIONS : Shortness of breath. MEDICAL HISTORY : Diabetes mellitus type II. Hypertension. Hypercholesterolemia. SURGICAL HISTORY : CABG. ENCOUNTER: Initial ACUITY: 1 day PAIN SCORE: 0/10 LOCATION: Bilateral chest FINDINGS: A single AP erect view of the chest demonstrates the lungs to be symmetrically aerated without eviden ce of mass, infiltrate or effusion. The patient is status post median sternotomy. The heart size rem ains mildly prominent. There is no perihilar edema. There are multiple overlying retrocardiac leads. Osseous structures are intact. CONCLUSION: Mild cardiomegaly with no acute cardiopulmonary disease. Ajith Ken MD on February 13, 2017 at 4:07 Board Certified Radiologist. This report was verified electronically.
[2017-02-13 04:12] LABS: APTT (PATIENT) 30.9 SEC (24.3-30.1); PROTHROMBIN TIME - PATIENT 11.2 SEC (9.8-11.6)
[2017-02-13 04:14] LABS: BACTERIA, URINE MOD /hpf; BLOOD, URINE NEG (NEG); COMMENT (UR) CULTURE INDICATED; CULTURE IF INDICATED CULTURE INDICATED; GLUCOSE,URINE NEG (NEG); KETONE, URINE NEG (NEG); PH, URINE 6.5 (5.0-8.5); SQUAMOUS EPITHELIAL CELL URINE <1 /hpf (0-5); URINE COLOR YELLOW (YELLW/STRAW)
[2017-02-13 04:15] LABS: NITRITE,URINE POS (NEG)
[2017-02-13] MEDS ORDERED: cefTRIAXone INJ 1,000 MG in SODIUM CHLORIDE 0.9% INJ 100 ML IV ONE (04:30)
[2017-02-13 04:37] LABS: ALT (GPT) 17 U/L (10-53); ANION GAP 11 MEQ/L (5-15); AST (GOT) 16 U/L (15-37); BICARBONATE 25.5 MEQ/L (21.0-32.0); BLOOD UREA NITROGEN 56 MG/DL (7-18); CHLORIDE 101 MEQ/L (98-107); GLOMERULAR FILTRATION RATE 36 ML/MIN (>89); SODIUM (NA) 137 MEQ/L (136-145)
[2017-02-13 04:41] LABS: ALKALINE PHOSPHATASE 60 U/L (45-117); TOTAL BILIRUBIN ADULT 0.2 MG/DL (0.2-1.0)
[2017-02-13 04:43] LABS: CREATINE KINASE 58 U/L (26-192)
[2017-02-13 04:56] VITALS: BP 149/66; PULSE 76; RESP 18; O2SAT 95
[2017-02-13] MEDS ORDERED: SODIUM CHLORID 0.9% 500 ML INJ 500 ML IV ONE (05:00)
[2017-02-13 05:02] LABS: AUTOMATED NEUTROPHIL # 4.1 TH/MM3 (1.8-7.7); BASOPHIL # 0.1 TH/MM3 (0-0.2); BASOPHIL % 0.7 % (0.0-2.0); EOSINOPHIL # 0.3 TH/MM3 (0-0.4); EOSINOPHIL % 3.9 % (0.0-4.0); HEMATOCRIT 25.2 % (35.0-46.0); HEMO FLAGS DIFF FINAL; LYMPH % 30.1 % (9.0-44.0); LYMPHOCYTE # 2.3 TH/MM3 (1.0-4.8); MEAN CELL VOLUME 86.1 FL (80.0-100.0); MEAN CORPUSCULAR HEMOGLOBIN 28.7 PG (27.0-34.0); MEAN CORPUSCULAR HGB CONC 33.3 % (32.0-36.0); NEUT % 54.3 % (16.0-70.0); PLATELET COUNT 166 TH/MM3 (150-450); RED BLOOD COUNT 2.93 MIL/MM3 (4.00-5.30); RED CELL DISTRIBUTION WIDTH 13.9 % (11.6-17.2); WHITE BLOOD COUNT 7.6 TH/MM3 (4.0-11.0)
[2017-02-13] MEDS ORDERED: BACT800T5 PO (05:30)
--- NOTE | 2017-02-13 13:52 | EKG ---
Date Performed: 02/13/2017 Time Performed: 04:01:59 PTAGE: 86 years EKG: Sinus rhythm ST DEVIATION AND MODERATE T-WAVE ABNORMALITY, CONSIDER LATERAL ISCHEMIA Since previous tracing, no s ignificant change noted ABNORMAL ECG PREVIOUS TRACING : 02/03/2017 01.13 DOCTOR: Aditya Montiel Interpretating Date/Time 02/13/2017 13:51:04
== END 2017-02-13 05:55 | disposition home or self-care (01) ==
LOC: NEPE 03:28
DX: N30.00 Acute cystitis without hematuria (principal); B96.29 Other Escherichia coli [E. coli] as the cause of diseases classified elsewhere; I12.9 Hypertensive chronic kidney disease with stage 1 through stage 4 chronic kidney disease, or unspecified chronic kidney disease; E11.22 Type 2 diabetes mellitus with diabetic chronic kidney disease; N18.2 Chronic kidney disease, stage 2 (mild); R94.31 Abnormal electrocardiogram [ECG] [EKG]; Z79.4 Long term (current) use of insulin
CPT/HCPCS: 71010; 80053; 81001; 82550; 83690; 84484; 85025; 85610; 85730; 87077; 87086; 87186; 93005; 96361; 96365; 96375; 99285; J0696; J2405; J7030

== ENCOUNTER 2017-02-16 09:42 | Inpatient (IN) | payer OTHER, MEDICARE ==
[2017-02-16] VITALS (14 sets, daily range): BP systolic 107–142; BP diastolic 54–60; PULSE 70–93; RESP 16–24; TEMP 97.7–98.8; O2SAT 94–98
[~2017-02-16] VITALS: Ht 157.5 cm; Wt 71.0 kg
[~2017-02-16 09:42] MED LIST changes: +BACT800T5 PO; -BENZ100 PO
--- NOTE | 2017-02-16 09:59 | PD ---
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 PFSH Past Medical History Hx Anticoagulant Therapy: Yes Anxiety: No Depression: No Heart Rhythm Problems: No Cancer: Yes (SKIN CA, HAVE BEEN REMOVED) Cardiac Catheterization: Yes Cardiovascular Problems: Yes High Cholesterol: Yes Chest Pain: No Congestive Heart Failure: No Cerebrovascular Accident: Yes Diabetes: Yes Diminished Hearing: No Endocrine: Yes Gastrointestinal Disorders: No Genitourinary: Yes (ONE FUNCTIONING KIDNEY) Hypertension: Yes Immune Disorder: No Implanted Vascular Access Dvce: No Musculoskeletal: No Neurologic: No Psychiatric: No Reproductive: No Respiratory: Yes Immunizations Current: Yes Thyroid Disease: Yes ?: Not Menopausal: Yes Past Surgical History Abdominal Surgery: Yes (hernia) Appendectomy: Yes Coronary Artery Bypass Graft: Yes (triple) Other Surgery: Yes (bilateral shoulders, l knee, triple bypass) Social History Alcohol Use: No Tobacco Use: No Substance Use: No Allergies-Medications (Allergen,Severity, Reaction): Coded Allergies: Iodine (Unverified Allergy, Unknown, 02/03/17) Per family "decreased kidney function" Sulfa (Verified Allergy, Unknown, 02/16/17) *MDRO Multi-Drug Resistant Organism (Verified Adverse Reaction, Unknown, ) 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 Reported Meds & Prescriptions Reported Meds & Active Scripts Active Norvasc (Amlodipine Besylate) 5 Mg Tab 5 Mg PO DAILY Metoprolol Tartrate 25 Mg Tab 25 Mg PO BID Plavix (Clopidogrel Bisulfate) 75 Mg Tab 75 Mg PO DAILY Reported Novolog Mix 70-30 FlexPen Inj (Insulin Aspart Protam-Asp 70-30 Inj) 300 Unit/3 Ml Pen 20 Units SQ DAILY IN THE PM Trimethoprim 100 Mg Tab 100 Mg PO DAILY 5 Days Aspirin 81 Mg Chew 81 Mg PO DAILY Novolog Mix 70-30 FlexPen Inj (Insulin Aspart Protam-Asp 70-30 Inj) 300 Unit/3 Ml Pen 34 Units SQ DAILY IN THE AM Levothyroxine (Levothyroxine Sodium) 75 Mcg Tab 75 Mcg PO DAILY Omeprazole 40 Mg Cap 40 Mg PO DAILY Simvastatin 20 Mg Tab 20 Mg PO HS Losartan (Losartan Potassium) 50 Mg Tab 50 Mg PO BID Review of Systems Except as stated in HPI: all other systems reviewed are Neg Cardiovascular: Positive: Chest Pain or Discomfort Physical Exam Narrative GENERAL: SKIN: Warm and dry. HEAD: Atraumatic. Normocephalic. EYES: Pupils equal and round. No scleral icterus. No injection or drainage. ENT: No nasal bleeding or discharge. Mucous membranes pink and moist. NECK: Trachea midline. No JVD. CARDIOVASCULAR: Regular rate and rhythm. RESPIRATORY: No accessory muscle use. Clear to auscultation. Breath sounds equal bilaterally. GASTROINTESTINAL: Abdomen soft, non-tender, nondistended. MUSCULOSKELETAL: Extremities without clubbing, cyanosis, or edema. No obvious deformities. NEUROLOGICAL: Awake and alert. No obvious cranial nerve deficits. Motor grossly within normal limits. Five out of 5 muscle strength in the arms and legs. Normal speech. PSYCHIATRIC: Appropriate mood and affect; insight and judgment normal. Data Data Last Documented VS Vital Signs Date Time Temp Pulse Resp B/P Pulse Ox O2 Delivery O2 Flow Rate FiO2 02/16/17 11:05 70 18 117/56 96 Room Air 02/16/17 09:46 97.7 Orders Electrocardiogram (02/16/17 09:59) B-Type Natriuretic Peptide (02/16/17 09:59) Ckmb (Isoenzyme) Profile (02/16/17 09:59) Complete Blood Count With Diff (02/16/17 09:59) Comprehensive Metabolic Panel (02/16/17 09:59) D-Dimer (02/16/17 09:59) Prothrombin Time / Inr (Pt) (02/16/17 09:59) Act Partial Throm Time (Ptt) (02/16/17 09:59) Troponin I (02/16/17 09:59) Chest, Single Ap (02/16/17 09:59) Ecg Monitoring (02/16/17 09:59) Bilateral Bp Monitoring (02/16/17 09:59) Iv Access Insert/Monitor (02/16/17 09:59) Oximetry (02/16/17 09:59) Oxygen Administration (02/16/17 09:59) Sodium Chloride 0.9% Flush (Ns Flush) (02/16/17 10:00) Aspirin Chew (Aspirin Chew) (02/16/17 10:15) Nitroglycerin 2% Oint (Nitroglycerin 2% (02/16/17 10:15) CKMB (02/16/17 10:33) CKMB% (02/16/17 10:33) Furosemide Inj (Lasix Inj) (02/16/17 12:15) Admit To Inpatient (02/16/17 ) Vital Signs (Adult) Q4H (02/16/17 12:40) Activity Bed Rest (02/16/17 12:40) 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 .CONTINUOUS (02/16/17 12:40) Sodium Chloride 0.9% Flush (Ns Flush) (02/16/17 12:45) Sodium Chloride 0.9% Flush (Ns Flush) (02/16/17 21:00) Ondansetron Inj (Zofran Inj) (02/16/17 12:45) Basic Metabolic Panel (Bmp) (02/17/17 06:00) Complete Blood Count With Diff (02/17/17 06:00) Troponin I (02/16/17 12:40) Troponin I (02/16/17 18:40) Enoxaparin Inj (Lovenox Inj) (02/16/17 14:00) Naloxone Inj (Narcan Inj) (02/16/17 12:45) Docusate Sodium-Senna (Marisol-Colace) (02/16/17 21:00) Magnesium Hydroxide Liq (Milk Of Magnesi (02/16/17 12:45) Sennosides (Senokot) (02/16/17 12:45) Bisacodyl Supp (Dulcolax Supp) (02/16/17 12:45) Lactulose Liq (Lactulose Liq) (02/16/17 12:45) Inpatient Certification (02/16/17 ) Admit Order (Ed Use Only) (02/16/17 12:40) Sodium Chlor 0.9% 250 Ml Inj (Ns 250 Ml (02/16/17 12:45) Furosemide Inj (Lasix Inj) (02/16/17 14:00) Labs Laboratory Tests Test 02/16/17 10:33 White Blood Count 5.9 TH/MM3 Red Blood Count 2.46 MIL/MM3 Hemoglobin 7.0 GM/DL Hematocrit 21.0 % Mean Corpuscular Volume 85.6 FL Mean Corpuscular Hemoglobin 28.6 PG Mean Corpuscular Hemoglobin 33.4 % Concent Red Cell Distribution Width 14.3 % Platelet Count 175 TH/MM3 Mean Platelet Volume 10.7 FL Neutrophils (%) (Auto) 71.8 % Lymphocytes (%) (Auto) 18.2 % Monocytes (%) (Auto) 8.4 % Eosinophils (%) (Auto) 0.8 % Basophils (%) (Auto) 0.8 % Neutrophils # (Auto) 4.3 TH/MM3 Lymphocytes # (Auto) 1.1 TH/MM3 Monocytes # (Auto) 0.5 TH/MM3 Eosinophils # (Auto) 0.0 TH/MM3 Basophils # (Auto) 0.0 TH/MM3 CBC Comment DIFF FINAL Differential Comment Prothrombin Time 10.9 SEC Prothromb Time International 1.0 RATIO Ratio Activated Partial 28.6 SEC Thromboplast Time D-Dimer Quantitative (PE/DVT) 1.55 MG/L FEU Sodium Level 129 MEQ/L Potassium Level 5.5 MEQ/L Chloride Level 99 MEQ/L Carbon Dioxide Level 21.6 MEQ/L Anion Gap 8 MEQ/L Blood Urea Nitrogen 47 MG/DL Creatinine 1.99 MG/DL Estimat Glomerular Filtration 24 ML/MIN Rate Random Glucose 274 MG/DL Calcium Level 8.3 MG/DL Total Bilirubin 0.3 MG/DL Aspartate Amino Transf 28 U/L (AST/SGOT) Alanine Aminotransferase 16 U/L (ALT/SGPT) Alkaline Phosphatase 56 U/L Total Creatine Kinase 116 U/L Creatine Kinase MB 3.5 NG/ML Troponin I 0.54 NG/ML B-Type Natriuretic Peptide 715 PG/ML Total Protein 6.5 GM/DL Albumin 3.3 GM/DL [facility] Medical Decision Making Medical Screen Exam Complete: Yes Emergency Medical Condition: Yes Medical Record Reviewed: Yes Interpretation(s) NSR 81, INVERTED T WAVES I AND AVL. NO STEMI PATTERN Differential Diagnosis NONSTEMI V STEMI V PNA V PE Narrative Course patient presentation consistent with symptomatic anemia, along with acute on chronic ckd. patient also found to have nonstemi Diagnosis Primary Impression: CP R/O PA Additional Impressions: Renal insufficiency NSTEMI (non-ST elevated myocardial infarction) ANEMIA Admitting Information Admitting Physician Requests: Admit Hernando Nair MD Feb 16, 2017 09:59
[2017-02-16] MEDS ORDERED: SODIUM CHLORIDE 0.9% FLUSH 10 ML FLUSH IVF PRN (10:00)
[2017-02-16] MEDS ORDERED: NITROGLYCERIN 2% OINT 1 GM PACKET TOP ONE (10:15)
[2017-02-16] MEDS ORDERED: ASPIRIN 81 MG CHEW TAB PO ONE (10:15)
--- NOTE | 2017-02-16 10:38 | RADRPT ---
EXAM DATE/TIME: 02/16/2017 10:09 [facility] COMPARISON: CHEST SINGLE AP, February 13, 2017, 3:39. INDICATIONS : Shortness of breath and chest pain MEDICAL HISTORY : Diabetes mellitus type II. SURGICAL HISTORY : CABG. ENCOUNTER: Initial ACUITY: 2 days PAIN SCORE: 5/10 LOCATION: Bilateral chest FINDINGS: There is cardiomegaly with evidence of previous bypass. Mild interstitial edema is present. Is not consolidation, pneumothorax or pleural effusion. Old fractures seen about the left shoulder. CONCLUSION: Moderate degenerative changes. Navarro Borden MD FACR on February 16, 2017 at 10:32 Board Certified Radiologist. This report was verified electronically.
[2017-02-16] MEDS ORDERED: NOVOINJ2 SQ (10:53)
[2017-02-16] MEDS ORDERED: TRIME100 PO (10:53)
[2017-02-16 10:58] LABS: AUTOMATED NEUTROPHIL # 4.3 TH/MM3 (1.8-7.7); BASOPHIL % 0.8 % (0.0-2.0); EOSINOPHIL % 0.8 % (0.0-4.0); HEMO FLAGS DIFF FINAL; LYMPH % 18.2 % (9.0-44.0); LYMPHOCYTE # 1.1 TH/MM3 (1.0-4.8); MEAN CELL VOLUME 85.6 FL (80.0-100.0); MEAN CORPUSCULAR HEMOGLOBIN 28.6 PG (27.0-34.0); MEAN CORPUSCULAR HGB CONC 33.4 % (32.0-36.0); MONO % 8.4 % (0.0-8.0); NEUT % 71.8 % (16.0-70.0); PLATELET COUNT 175 TH/MM3 (150-450); RED BLOOD COUNT 2.46 MIL/MM3 (4.00-5.30); RED CELL DISTRIBUTION WIDTH 14.3 % (11.6-17.2); WHITE BLOOD COUNT 5.9 TH/MM3 (4.0-11.0)
[2017-02-16 11:16] LABS: PROTHROMBIN TIME - PATIENT 10.9 SEC (9.8-11.6)
[2017-02-16 11:19] LABS: APTT (PATIENT) 28.6 SEC (24.3-30.1)
[2017-02-16 11:31] LABS: ALKALINE PHOSPHATASE 56 U/L (45-117); ALT (GPT) 16 U/L (10-53); ANION GAP 8 MEQ/L (5-15); AST (GOT) 28 U/L (15-37); BICARBONATE 21.6 MEQ/L (21.0-32.0); BLOOD UREA NITROGEN 47 MG/DL (7-18); CHLORIDE 99 MEQ/L (98-107); CREATINE KINASE 116 U/L (26-192); GLOMERULAR FILTRATION RATE 24 ML/MIN (>89); SODIUM (NA) 129 MEQ/L (136-145); TOTAL BILIRUBIN ADULT 0.3 MG/DL (0.2-1.0)
[2017-02-16 11:32] LABS: POTASSIUM 5.5 MEQ/L (3.5-5.1)
[2017-02-16 11:46] LABS: CKMB 3.5 NG/ML (0.5-3.6)
[2017-02-16] MEDS ORDERED: FUROSEMIDE 20 MG/2 ML VIAL IV PUSH ONE (12:15)
[2017-02-16] MEDS ORDERED: SODIUM CHLOR 0.9% 250 ML INJ 250 ML IV ONE (12:45)
[2017-02-16] MEDS ORDERED: MAGNESIUM HYDROXIDE SUSP 30 ML CUP PO PRN (12:45)
[2017-02-16] MEDS ORDERED: LACTULOSE SYRUP 20 GM/30 ML CUP PO PRN (12:45)
[2017-02-16] MEDS ORDERED: NALOXONE HCL 0.4 MG/ML AMP IV PRN (12:45)
[2017-02-16] MEDS ORDERED: ONDANSETRON HCL 4 MG/2 ML VIAL IVP PRN (12:45)
[2017-02-16] MEDS ORDERED: BISACODYL 10 MG SUPP RECTAL PRN (12:45)
[2017-02-16] MEDS ORDERED: SODIUM CHLORIDE 0.9% FLUSH 10 ML FLUSH IV FLUSH PRN (12:45)
[2017-02-16] MEDS ORDERED: SENNOSIDES 8.6 MG TAB PO PRN (12:45)
[2017-02-16] MEDS ORDERED: FUROSEMIDE 20 MG/2 ML VIAL IV ONE (14:00)
--- NOTE | 2017-02-16 14:30 | EKG ---
Date Performed: 02/16/2017 Time Performed: 10:14:46 PTAGE: 86 years EKG: Sinus rhythm ST DEVIATION AND MODERATE T-WAVE ABNORMALITY, CONSIDER LATERAL ISCHEMIA ABNORMAL ECG Since PREVIOUS TRACING , no significant change noted PREVIOUS TRACIN02/13/2017 04.01 DOCTOR: Serge Colby Interpretating Date/Time 02/16/2017 14:28:57
[2017-02-16] MEDS: ENOXAPARIN SODIUM 30 MG/0.3 ML SYRINGE SQ SCH (14:50)
[2017-02-16] MEDS ORDERED: DEXTROSE 50% IN WATER 50 ML VIAL(D50) IV PRN ×2 (19:45→21:00)
[2017-02-16] MEDS ORDERED: GLUCAGON 1 MG/ML VIAL OTHER PRN ×2 (19:45→21:00)
--- NOTE | 2017-02-16 20:54 | HHI.HP ---
[facility] Primary Care Physician Non-Staff Admission Diagnosis NONSTEMI, ANEMIA, PULMONARY EDEMA Diagnoses: Travel History International Travel<30 Days: No Contact w/Intl Traveler <30 Da: No Traveled to Known Affected Are: No History of Present Illness Ms. Banegas is an 86-year-old female. She was admitted secondary to chest pain. She had a tight central chest pain as an outpatient and came to the ER secondary to this. In the ER with nitroglycerin chest pain was relieved. She has positive troponin in this troponin graduated upward with second evaluation. NSTEMI is diagnosed. When seen she is still reporting no further chest pain. Hyponatremia and hyperkalemia are present. She is also anemic with a hemoglobin of 7.0 so given ischemia in the presence of anemia transfusion has been ordered of 2 units packed red blood cells. When she arrived she had some mild fluid overload but Lasix is provided and when seen she is no longer showing evidence of fluid overload. Hyperglycemia is also present and noted. Review of Systems Constitutional: DENIES: Fatigue, Fever, Weight loss Eyes: DENIES: Blurred vision, Diplopia, Eye inflammation Ears, nose, mouth, throat: DENIES: Tinnitus, Hearing loss, Vertigo Respiratory: DENIES: Cough, Wheezing, Shortness of breath Cardiovascular: COMPLAINS OF: Chest pain, DENIES: Palpitations, Syncope Gastrointestinal: DENIES: Abdominal pain, Black stools, Bloody stools Musculoskeletal: DENIES: Joint pain, Muscle aches, Stiffness Integumentary: DENIES: Abnormal pigmentation, Pruritus, Rash Hematologic/lymphatic: DENIES: Bruising Immunologic/allergic: DENIES: Eczema Neurologic: DENIES: Abnormal gait Psychiatric: DENIES: Anxiety, Hallucinations Past Family Social History Past Medical History Hypothyroidism Hypertension Chronic kidney disease Diabetes History of CVA Hyperlipidemia Coronary artery disease History of skin cancer Past Surgical History History of three-vessel CABG Hernia repair Appendectomy Bilateral shoulder surgeries Knee surgery Reported Medications Reported Meds & Active Scripts Active Norvasc (Amlodipine Besylate) 5 Mg Tab 5 Mg PO DAILY Metoprolol Tartrate 25 Mg Tab 25 Mg PO BID Plavix (Clopidogrel Bisulfate) 75 Mg Tab 75 Mg PO DAILY Reported Novolog Mix 70-30 FlexPen Inj (Insulin Aspart Protam-Asp 70-30 Inj) 300 Unit/3 Ml Pen 20 Units SQ DAILY IN THE PM Trimethoprim 100 Mg Tab 100 Mg PO DAILY 5 Days Aspirin 81 Mg Chew 81 Mg PO DAILY Novolog Mix 70-30 FlexPen Inj (Insulin Aspart Protam-Asp 70-30 Inj) 300 Unit/3 Ml Pen 34 Units SQ DAILY IN THE AM Levothyroxine (Levothyroxine Sodium) 75 Mcg Tab 75 Mcg PO DAILY Omeprazole 40 Mg Cap 40 Mg PO DAILY Simvastatin 20 Mg Tab 20 Mg PO HS Losartan (Losartan Potassium) 50 Mg Tab 50 Mg PO BID Allergies: Coded Allergies: Iodine (Unverified Allergy, Unknown, 02/03/17) Per family "decreased kidney function" Sulfa (Verified Allergy, Unknown, 02/16/17) *MDRO Multi-Drug Resistant Organism (Verified Adverse Reaction, Unknown, ) 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 Social History No alcohol use No drug abuse No nicotine use Physical Exam Vital Signs Vital Signs Date Time Temp Pulse Resp B/P Pulse Ox O2 Delivery O2 Flow Rate FiO2 02/16/17 18:23 98.8 93 18 114/60 95 02/16/17 17:00 98.3 87 18 118/59 96 Room Air 02/16/17 11:05 70 18 117/56 96 Room Air 02/16/17 10:23 80 112/58 02/16/17 10:16 84 18 142/58 98 Room Air 02/16/17 10:16 98 Room Air 02/16/17 10:11 80 18 98 Room Air 02/16/17 09:46 97.7 92 24 120/57 97 Physical Exam GENERAL: NAD, A&Ox2 HEAD: Normocephalic. NECK: Supple, trachea midline. No lymphadenopathy. EYES: No scleral icterus. No injection or drainage. CARDIOVASCULAR: Regular rate and rhythm without murmurs, gallops, or rubs. RESPIRATORY: Breath sounds equal bilaterally. No accessory muscle use. GASTROINTESTINAL: Abdomen soft, non-tender, nondistended. MUSCULOSKELETAL: No cyanosis, or edema. SKIN: Warm and dry. Sternal scar. NEURO: No focal neurological deficitis. Laboratory Laboratory Tests Test 02/16/17 02/16/17 02/16/17 10:33 14:48 16:15 White Blood Count 5.9 Red Blood Count 2.46 Hemoglobin 7.0 Hematocrit 21.0 Mean Corpuscular Volume 85.6 Mean Corpuscular Hemoglobin 28.6 Mean Corpuscular Hemoglobin 33.4 Concent Red Cell Distribution Width 14.3 Platelet Count 175 Mean Platelet Volume 10.7 Neutrophils (%) (Auto) 71.8 Lymphocytes (%) (Auto) 18.2 Monocytes (%) (Auto) 8.4 Eosinophils (%) (Auto) 0.8 Basophils (%) (Auto) 0.8 Neutrophils # (Auto) 4.3 Lymphocytes # (Auto) 1.1 Monocytes # (Auto) 0.5 Eosinophils # (Auto) 0.0 Basophils # (Auto) 0.0 CBC Comment DIFF FINAL Differential Comment Prothrombin Time 10.9 Prothromb Time International 1.0 Ratio Activated Partial 28.6 Thromboplast Time D-Dimer Quantitative (PE/DVT) 1.55 Sodium Level 129 Potassium Level 5.5 Chloride Level 99 Carbon Dioxide Level 21.6 Anion Gap 8 Blood Urea Nitrogen 47 Creatinine 1.99 Estimat Glomerular Filtration 24 Rate Random Glucose 274 Calcium Level 8.3 Total Bilirubin 0.3 Aspartate Amino Transf 28 (AST/SGOT) Alanine Aminotransferase 16 (ALT/SGPT) Alkaline Phosphatase 56 Total Creatine Kinase 116 Creatine Kinase MB 3.5 Troponin I 0.54 1.12 B-Type Natriuretic Peptide 715 Total Protein 6.5 Albumin 3.3 Blood Type O POSITIVE O POSITIVE Antibody Screen NEGATIVE Crossmatch Leukocyte-Reduced Red Blood Cells Blood Bank Comment Result Diagram: 02/16/17 1033 02/16/17 1033 Assessment and Plan Problem List: (1) NSTEMI (non-ST elevated myocardial infarction) ICD Code: I21.4 Status: Acute (2) Renal insufficiency ICD Code: N28.9 Status: Acute (3) Chronic kidney disease ICD Code: N18.9 Status: Acute (4) Elevated troponin ICD Code: R74.8 Status: Acute (5) Angina pectoris ICD Code: I20.9 Status: Acute Assessment and Plan Assessment and plan 86-year-old female admitted secondary to chest pain with end STEMI. In STEMI History of coronary artery disease Follow and [facility] Cardiology consulted Patient is presently chest pain-free Monitor cardiac enzymes Monitor for recurrence of chest pain As needed nitroglycerin Aspirin Monitor her for arrhythmias on telemetry Hypothyroidism Continue Synthroid Follows in outpatient Hypertension Continue baseline treatments Follow blood pressures TEAGAN Chronic kidney disease Diuresis provided Caution with IV hydration, Risk for fluid overload with IV hydration Diabetes Follow blood sugars Insulin sliding scale Diabetic diet History of CVA Supportive care Follow clinically Hyperlipidemia Continue statin Check cholesterol levels DVT prophylaxis Lovenox Physician Certification 2 Midnight Certification Type: Admission for Inpatient Services Order for Inpatient Services The services are ordered in accordance with Medicare regulations or non- Medicare payer requirements, as applicable. In the case of services not specified as inpatient-only, they are appropriately provided as inpatient services in accordance with the 2-midnight benchmark. Estimated LOS (days): 2 days is the estimated time the patient will need to remain in the hospital, assuming treatment plan goals are met and no additional complications. Post-Hospital Plan: Home Shaji Sharma MD Feb 16, 2017 20:54
[2017-02-16] MEDS: INSULIN ASPART SUPPLEMENTAL SCALE SQ SCH (21:00)
[2017-02-16] MEDS ORDERED: INSULIN ASPAR PROT 70/30 1,000 UNITS/10 ML VIAL SQ SCH (21:00)
[2017-02-16] MEDS ORDERED: INSULIN ASPART SUPPLEMENTAL SCALE SQ SCH (21:00)
[2017-02-16] MEDS: DOCUSATE SODIUM 50 MG/SENNA 8.6 MG TAB PO SCH (21:00)
[2017-02-16] MEDS: PRAVASTATIN SOD 40 MG TAB PO SCH (22:00)
[2017-02-16] MEDS: METOPROLOL TARTRATE 25 MG TAB PO SCH (22:00)
[2017-02-16] MEDS: SODIUM CHLORIDE 0.9% FLUSH 10 ML FLUSH IV FLUSH SCH (22:01)
--- NOTE | 2017-02-16 22:05 | MB ---
cc: MARTELL LOPEZ DO DATE OF CONSULTATION February 16, 2017 REASON FOR CONSULTATION Elevated troponin. HISTORY OF PRESENT ILLNESS Zandra Banegas is a pleasant 86-year-old female who presented to [facility] on February 16, 2017 due to chest pain. She has recently been here twice in January 2017 with elevated troponins and deemed not a revascularization candidate. She also was in the emergency room on February 13, 2017 due to generalized weakness and during that time she was found to have a UTI. Since being home she had continued to have generalized weakness and then started having some chest pain which is 5/10. She took a sublingual as home which fully relieved the chest pain. In seeing her she is currently chest pain free without shortness of breath. PAST MEDICAL HISTORY 1. Coronary artery disease. 2. Hypertension. 3. Hyperlipidemia. 4. Chronic kidney disease stage IV. 5. Diabetes. PAST SURGICAL HISTORY 1. Coronary artery bypass grafting x3. 2. Hernia repair. 3. Appendectomy. 4. Bilateral shoulder surgery. 5. Left knee surgery. ALLERGIES CONTRAST. MEDICATIONS 1. Losartan 50 milligrams b.i.d. 2. Metoprolol tartrate 25 milligrams b.i.d. 3. Norvasc 5 milligrams daily. 4. Zocor 20 milligrams every night. 5. NovoLog 70/30 34 units in the morning, 20 units at night. 6. Aspirin 81 milligrams daily. 7. Plavix 75 milligrams daily. 8. Omeprazole 40 milligrams daily. 9. Synthroid 75 micrograms daily. 10. Trimethoprim 100 milligrams daily for 5 days. FAMILY HISTORY Denies premature coronary artery disease or sudden cardiac within the family. SOCIAL HISTORY The patient denies alcohol, drugs or tobacco abuse. REVIEW OF SYSTEMS 14-systems were reviewed including osteopathic pertinent positives and negatives above, otherwise, negative. PHYSICAL EXAMINATION VITAL SIGNS: Temperature 98.3, heart rate 70, blood pressure 117/56, respirations 18, pulse ox 96% on room air. GENERAL: In general, the patient appears well in no acute distress, alert, awake and oriented x3. HEENT: Extraocular muscles intact. Mucous membranes moist. NECK: Supple. No JVD at 45 degrees. No carotid bruits heard bilaterally. Carotid upstroke is brisk in nature. HEART: Heart is regular rate and rhythm. Positive first and second heart sounds with no noted murmurs, gallops or rubs. LUNGS: Lungs have decreased breath sounds with mild crackles at bilateral bases. ABDOMEN: Soft, nontender, nondistended. No organomegaly noted. EXTREMITIES: Show no clubbing, cyanosis or edema. NEUROLOGICALLY: No focal deficits. SKIN: Warm, dry and intact. OSTEOPATHIC: Mild kyphoscoliosis. No lordosis or paraspinal tender points. LABORATORY FINDINGS Hemoglobin 7.0, hematocrit 21.0, platelets 175. Potassium 5.5, BUN 47, creatinine 1.99. Troponin 0.54. BNP 715. CARDIOLOGY STUDIES Electrocardiogram (February 16, 2017 at 10:14) sinus rhythm, nonspecific ST-T wave changes laterally, possibly due to ischemia. No significant change from February 13, 2017. IMPRESSION 1. NSTEMI. 2. Acute heart failure with a previous ejection fraction of 50-55%. 3. Coronary artery disease with a history of coronary artery bypass grafting. 4. Chronic kidney disease stage IV. 5. Anemia with hemoglobin of 7 which previously was in the 8 to 9 range. RECOMMENDATIONS 1. Ms. Banegas appears to have had chest pain which was relieved with nitro, although, she has an elevated troponin. 2. Her two previous episodes she was deemed not a revascularization candidate due to her age, kidney function and anemia. At this time her hemoglobin previously running in an 8 to 9 range is now at 7 and I believe that she continues to not be a revascularization candidate. 3. We will attempt to treat her as best we can medically. She will most likely need to be diuresed as she does appear to be in mild heart failure. Afterwards, we may add Imdur as her chest pain was relieved with one nitro sublingual. 4. Diuresis will need to be gentle as she does have significant kidney disease. 5. She may benefit from 1-2 units of red blood cells to keep her hemoglobin closer to 9 but she will need to be diuresed after each. 6. Further recommendations will be made based on the hospital course. Thank you for allowing me to see Zandra Banegas. If there are any questions please do not hesitate to call. Martell Lopez DO VGP/EO /8:45 PM /9:48 PM
[2017-02-17] VITALS (30 sets, daily range): BP systolic 97–148; BP diastolic 47–81; PULSE 73–105; RESP 16–19; TEMP 97.7–98.7; O2SAT 94–97
[2017-02-17] MEDS ORDERED: FUROSEMIDE 40 MG/4 ML VIAL ONE (00:48)
[2017-02-17] MEDS ORDERED: FUROSEMIDE 20 MG/2 ML VIAL IV ONE (02:00)
[2017-02-17] MEDS: LEVOTHYROXINE SODIUM 75 MCG TAB PO SCH (06:15)
[2017-02-17] MEDS: INSULIN ASPART SUPPLEMENTAL SCALE SQ SCH ×4 (06:16→20:57)
[2017-02-17 06:53] LABS: AUTOMATED NEUTROPHIL # 5.1 TH/MM3 (1.8-7.7); BASOPHIL # 0.1 TH/MM3 (0-0.2); BASOPHIL % 0.7 % (0.0-2.0); EOSINOPHIL # 0.1 TH/MM3 (0-0.4); EOSINOPHIL % 1.4 % (0.0-4.0); HEMATOCRIT 28.8 % (35.0-46.0); HEMO FLAGS DIFF FINAL; LYMPH % 25.2 % (9.0-44.0); LYMPHOCYTE # 2.1 TH/MM3 (1.0-4.8); MEAN CELL VOLUME 84.7 FL (80.0-100.0); MEAN CORPUSCULAR HEMOGLOBIN 28.5 PG (27.0-34.0); MEAN CORPUSCULAR HGB CONC 33.6 % (32.0-36.0); MONO % 11.7 % (0.0-8.0); PLATELET COUNT 153 TH/MM3 (150-450); WHITE BLOOD COUNT 8.4 TH/MM3 (4.0-11.0)
[2017-02-17 07:24] LABS: BICARBONATE 24.1 MEQ/L (21.0-32.0); POTASSIUM 3.7 MEQ/L (3.5-5.1)
[2017-02-17] MEDS: INSULIN ASPAR PROT 70/30 1,000 UNITS/10 ML VIAL SQ SCH (08:00)
[2017-02-17] MEDS: PANTOPRAZOLE SOD 40 MG DELAYED RELEASE TAB PO SCH (09:00)
[2017-02-17] MEDS: DOCUSATE SODIUM 50 MG/SENNA 8.6 MG TAB PO SCH ×2 (09:27→20:53)
[2017-02-17] MEDS: CLOPIDOGREL 75 MG TAB PO SCH (09:27)
[2017-02-17] MEDS: TRIMETHOPRIM 100 MG TAB PO SCH (09:32)
[2017-02-17] MEDS: METOPROLOL TARTRATE 25 MG TAB PO SCH ×2 (09:32→20:53)
[2017-02-17] MEDS: ASPIRIN 81 MG CHEW TAB PO SCH (09:32)
[2017-02-17] MEDS: SODIUM CHLORIDE 0.9% FLUSH 10 ML FLUSH IV FLUSH SCH ×2 (09:33→20:57)
[2017-02-17] MEDS ORDERED: INFLUENZA VIRUS VACCINE (QUADRIVALENT) 0.5 ML SYR IM ONE (10:00)
--- NOTE | 2017-02-17 12:53 | PD.CARD.PN ---
Subjective Subjective Remarks No events overnight Tele-translation used No chest pain/SOB Objective Medications Current Medications Medications (Trade) Dose Ordered Sig/Siddharth Route Start Time Stop Time Status Last Admin (NS Flush) 2 ml UNSCH PRN IV FLUSH 02/16/17 12:45 (NS Flush) 2 ml BID IV FLUSH 02/16/17 21:00 02/17/17 09:33 (Zofran Inj) 4 mg Q6H PRN IVP 02/16/17 12:45 (Lovenox Inj) 30 mg Q24H SQ 02/16/17 14:00 02/16/17 14:50 (Narcan Inj) 0.4 mg UNSCH PRN IV 02/16/17 12:45 (Marisol-Colace) 1 tab BID PO 02/16/17 21:00 02/17/17 09:27 (Milk Of Magnesia Liq) 30 ml Q12H PRN PO 02/16/17 12:45 (Senokot) 17.2 mg Q12H PRN PO 02/16/17 12:45 (Dulcolax Supp) 10 mg DAILY PRN RECTAL 02/16/17 12:45 (Lactulose Liq) 30 ml DAILY PRN PO 02/16/17 12:45 (D50w (Vial) Inj) 50 ml UNSCH PRN IV 02/16/17 19:45 (Glucagon Inj) 1 mg UNSCH PRN OTHER 02/16/17 19:45 (Aspirin Chew) 81 mg DAILY PO 02/17/17 09:00 02/17/17 09:32 (Plavix) 75 mg DAILY PO 02/17/17 09:00 02/17/17 09:27 (Synthroid) 75 mcg DAILY@07 PO 02/17/17 07:00 02/17/17 06:15 (Lopressor) 25 mg BID PO 02/16/17 21:00 02/17/17 09:32 (Proloprim) 100 mg DAILY PO 02/17/17 09:00 02/17/17 09:32 (NovoLOG MIX 70/ 30 INJ) 20 units HS SQ 02/16/17 21:00 02/16/17 21:00 (NovoLOG MIX 70/ 30 INJ) 34 units DAILY@08 SQ 02/17/17 08:00 (Protonix) 40 mg DAILY PO 02/17/17 09:00 02/17/17 09:00 (Pravachol) 40 mg HS PO 02/16/17 21:00 02/16/17 22:00 Vital Signs / I&O Vital Signs Date Time Temp Pulse Resp B/P Pulse Ox O2 Delivery O2 Flow Rate FiO2 02/17/17 12:00 81 02/17/17 11:00 94 Room Air 02/17/17 11:00 73 02/17/17 11:00 98.1 80 17 119/65 94 02/17/17 10:00 84 02/17/17 09:00 86 02/17/17 08:00 84 02/17/17 07:00 80 02/17/17 07:00 98.0 95 19 148/74 94 02/17/17 07:00 95 Nasal Cannula 2.00 02/17/17 06:00 83 02/17/17 05:00 78 02/17/17 04:13 97.7 82 16 97/47 95 02/17/17 04:00 78 02/17/17 03:30 95 Nasal Cannula 2.00 02/17/17 03:30 98.7 83 16 108/55 95 02/17/17 03:00 77 02/17/17 02:00 78 02/17/17 01:43 97.8 84 16 104/60 97 02/17/17 01:23 98.1 80 16 103/55 95 02/17/17 01:00 78 02/17/17 00:50 97.7 80 16 103/55 95 02/17/17 00:00 76 02/16/17 23:00 91 02/16/17 23:00 98.5 88 16 126/57 94 02/16/17 23:00 94 Nasal Cannula 2.00 02/16/17 22:30 98.5 88 16 126/57 94 02/16/17 22:10 98.1 89 18 112/58 95 02/16/17 22:00 90 02/16/17 21:00 92 02/16/17 20:00 88 02/16/17 19:45 98.4 88 18 107/54 96 02/16/17 19:45 96 Room Air 02/16/17 19:00 90 02/16/17 18:23 98.8 93 18 114/60 95 02/16/17 17:00 98.3 87 18 118/59 96 Room Air I/O 02/16/17 02/16/17 02/16/17 02/17/17 02/17/17 02/17/17 07:00 15:00 23:00 07:00 15:00 23:00 Intake Total 2040 ml Balance 2040 ml Intake Oral 840 ml IV Total 200 ml Packed Cells 1000 ml # Voids 5 # Bowel Movements 0 Physical Exam GENERAL: NAD, alert and awake SKIN: Warm and dry. HEAD: Atraumatic. Normocephalic. EYES: Pupils equal and round. No scleral icterus. No injection or drainage. ENT: No nasal bleeding or discharge. Mucous membranes pink and moist. NECK: Trachea midline. No JVD. CARDIOVASCULAR: Regular rate and rhythm. RESPIRATORY: No accessory muscle use. Mild crackles at the bases GASTROINTESTINAL: Abdomen soft, non-tender, nondistended. Hepatic and splenic margins not palpable. MUSCULOSKELETAL: Extremities without clubbing, cyanosis, or edema. No obvious deformities. NEUROLOGICAL: Awake and alert. No obvious cranial nerve deficits. Motor grossly within normal limits. Five out of 5 muscle strength in the arms and legs. Normal speech. PSYCHIATRIC: Appropriate mood and affect; insight and judgment normal. Laboratory Laboratory Tests Test 02/16/17 02/16/17 02/17/17 14:48 16:15 06:29 Blood Type O POSITIVE O POSITIVE Troponin I 1.12 NG/ML 1.95 NG/ML Antibody Screen NEGATIVE Crossmatch Leukocyte-Reduced Red Blood Cells Blood Bank Comment White Blood Count 8.4 TH/MM3 Red Blood Count 3.40 MIL/MM3 Hemoglobin 9.7 GM/DL Hematocrit 28.8 % Mean Corpuscular Volume 84.7 FL Mean Corpuscular Hemoglobin 28.5 PG Mean Corpuscular Hemoglobin 33.6 % Concent Red Cell Distribution Width 17.0 % Platelet Count 153 TH/MM3 Mean Platelet Volume 10.4 FL Neutrophils (%) (Auto) 61.0 % Lymphocytes (%) (Auto) 25.2 % Monocytes (%) (Auto) 11.7 % Eosinophils (%) (Auto) 1.4 % Basophils (%) (Auto) 0.7 % Neutrophils # (Auto) 5.1 TH/MM3 Lymphocytes # (Auto) 2.1 TH/MM3 Monocytes # (Auto) 1.0 TH/MM3 Eosinophils # (Auto) 0.1 TH/MM3 Basophils # (Auto) 0.1 TH/MM3 CBC Comment DIFF FINAL Differential Comment Sodium Level 136 MEQ/L Potassium Level 3.7 MEQ/L Chloride Level 100 MEQ/L Carbon Dioxide Level 24.1 MEQ/L Anion Gap 12 MEQ/L Blood Urea Nitrogen 44 MG/DL Creatinine 2.13 MG/DL Estimat Glomerular Filtration 22 ML/MIN Rate Random Glucose 69 MG/DL Calcium Level 8.8 MG/DL Assessment and Plan Problem List: (1) Elevated troponin (2) Chronic kidney disease (3) Renal insufficiency (4) DM (diabetes mellitus) (5) HTN (hypertension) Assessment and Plan 1) Deemed not a revascularization candidate twice before due to CKD/Anemia Now Hgb dropped to 7, so further not a candidate 2) 2 units of PRBC given Agree with keeping Hgb towards 9 3) Acute CHF Con't with Lasix IV, but will have to watch kidney function 4) Will start Imdur 30 mg daily Nitro SL as needed Martell Smart DO Feb 17, 2017 12:53
[2017-02-17] MEDS ORDERED: ISOSORBIDE MONONITRATE 30 MG TAB PO ONE (13:00)
--- NOTE | 2017-02-17 13:30 | EKG ---
Date Performed: 02/17/2017 Time Performed: 00:10:04 PTAGE: 86 years EKG: Sinus rhythm Extensive ST-T changes may be due to myocardial ischemia Abnormal ECG PREVIOUS TRACING : 02/16/2017 16.16 Since previous tracing, no significant change noted DOCTOR: Woody Villanueva Interpretating Date/Time 02/17/2017 13:30:26
--- NOTE | 2017-02-17 13:30 | EKG ---
Date Performed: 02/16/2017 Time Performed: 16:16:37 PTAGE: 86 years EKG: Sinus rhythm ST DEVIATION AND MODERATE T-WAVE ABNORMALITY, CONSIDER LATERAL ISCHEMIA ABNORMAL ECG PREVIOUS TRACING : 02/16/2017 10.14 Since previous tracing, no significant change noted DOCTOR: Woody Villanueva Interpretating Date/Time 02/17/2017 13:30:13
--- NOTE | 2017-02-17 13:31 | EKG ---
Date Performed: 02/17/2017 Time Performed: 07:32:08 PTAGE: 86 years EKG: Sinus rhythm . rSr'(V1) - probable normal variant Possible anterior infarct - age undetermined Inferior/lateral ST -T changes may be due to myocardial ischemia Abnormal ECG PREVIOUS TRACING 02/17/2017 00.10.04 Since previous tracing, no significant change noted DOCTOR: Woody Villanueva Interpretating Date/Time 02/17/2017 13:30:54
[2017-02-17] MEDS: ENOXAPARIN SODIUM 30 MG/0.3 ML SYRINGE SQ SCH (15:23)
--- NOTE | 2017-02-17 18:17 | HHI.PR ---
Subjective Remarks Patient has had no recurrence of chest pain. No nausea. No arrhythmias. She had a low blood sugar last night. Blood sugars are high throughout today. Objective Vital Signs Date Time Temp Pulse Resp B/P Pulse Ox O2 Delivery O2 Flow Rate FiO2 02/17/17 18:03 95 02/17/17 17:04 88 02/17/17 16:00 93 02/17/17 15:00 88 02/17/17 15:00 97.9 87 17 138/81 95 02/17/17 15:00 100 Room Air 02/17/17 14:00 82 02/17/17 13:00 84 02/17/17 12:00 81 02/17/17 11:00 94 Room Air 02/17/17 11:00 73 02/17/17 11:00 98.1 80 17 119/65 94 02/17/17 10:00 84 02/17/17 09:00 86 02/17/17 08:00 84 02/17/17 07:00 80 02/17/17 07:00 98.0 95 19 148/74 94 02/17/17 07:00 95 Nasal Cannula 2.00 02/17/17 06:00 83 02/17/17 05:00 78 02/17/17 04:13 97.7 82 16 97/47 95 02/17/17 04:00 78 02/17/17 03:30 95 Nasal Cannula 2.00 02/17/17 03:30 98.7 83 16 108/55 95 02/17/17 03:00 77 02/17/17 02:00 78 02/17/17 01:43 97.8 84 16 104/60 97 02/17/17 01:23 98.1 80 16 103/55 95 02/17/17 01:00 78 02/17/17 00:50 97.7 80 16 103/55 95 02/17/17 00:00 76 02/16/17 23:00 91 02/16/17 23:00 98.5 88 16 126/57 94 02/16/17 23:00 94 Nasal Cannula 2.00 02/16/17 22:30 98.5 88 16 126/57 94 02/16/17 22:10 98.1 89 18 112/58 95 02/16/17 22:00 90 02/16/17 21:00 92 02/16/17 20:00 88 02/16/17 19:45 98.4 88 18 107/54 96 02/16/17 19:45 96 Room Air 02/16/17 19:00 90 02/16/17 18:23 98.8 93 18 114/60 95 I/O 02/16/17 02/16/17 02/16/17 02/17/17 02/17/17 02/17/17 07:00 15:00 23:00 07:00 15:00 23:00 Intake Total 2040 ml 500 ml Balance 2040 ml 500 ml Intake Oral 840 ml 500 ml IV Total 200 ml Packed Cells 1000 ml # Voids 5 3 # Bowel Movements 0 Result Diagram: 02/17/1762802/17/17628 Objective Remarks GENERAL: NAD, A&Ox3 HEAD: Normocephalic. NECK: Supple, trachea midline. No lymphadenopathy. EYES: No scleral icterus. No injection or drainage. CARDIOVASCULAR: Regular rate and rhythm without murmurs, gallops, or rubs. RESPIRATORY: Breath sounds equal bilaterally. No accessory muscle use. GASTROINTESTINAL: Abdomen soft, non-tender, nondistended. MUSCULOSKELETAL: No cyanosis, or edema. SKIN: Warm and dry. NEURO: No focal neurological deficitis. A/P Problem List: (1) DM (diabetes mellitus) ICD Code: E11.9 (2) HTN (hypertension) ICD Code: I10 (3) NSTEMI (non-ST elevated myocardial infarction) ICD Code: I21.4 (4) Elevated troponin ICD Code: R74.8 (5) Chronic kidney disease ICD Code: N18.9 (6) Angina pectoris ICD Code: I20.9 (7) Renal insufficiency ICD Code: N28.9 Assessment and Plan Assessment and plan 86-year-old female admitted with an NSTEMI. No complaints of chest pain or cardiac symptoms today. Continue to monitor on telemetry. No signs of UTI. Nocturnal insulin adjusted. NSTEMI History of coronary artery disease Follow and [facility] Cardiology consulted Patient is presently chest pain-free Monitor cardiac enzymes Monitor for recurrence of chest pain As needed nitroglycerin Aspirin Monitor her for arrhythmias on telemetry Hypothyroidism Continue Synthroid Follows in outpatient Hypertension Continue baseline treatments Follow blood pressures TEAGAN Chronic kidney disease Diuresis provided Caution with IV hydration, Risk for fluid overload with IV hydration Diabetes Follow blood sugars Insulin sliding scale Diabetic diet History of CVA Supportive care Follow clinically Hyperlipidemia Continue statin Check cholesterol levels DVT prophylaxis Shaji Valencia MD Feb 17, 2017 18:17
[2017-02-17] MEDS: PRAVASTATIN SOD 40 MG TAB PO SCH (20:53)
[2017-02-17] MEDS: NYSTATIN 100,000 U/GM OINT 15 GM TUBE TOPICAL SCH (20:57)
[2017-02-17] MEDS ORDERED: INSULIN ASPAR PROT 70/30 1,000 UNITS/10 ML VIAL SQ SCH (21:00)
[2017-02-18] VITALS (23 sets, daily range): BP systolic 122–143; BP diastolic 57–75; PULSE 76–95; RESP 16; TEMP 98–98.9; O2SAT 95–99
[2017-02-18] MEDS: INSULIN ASPART SUPPLEMENTAL SCALE SQ SCH ×4 (05:49→21:42)
[2017-02-18] MEDS: ISOSORBIDE MONONITRATE 30 MG TAB PO SCH (05:49)
[2017-02-18] MEDS: LEVOTHYROXINE SODIUM 75 MCG TAB PO SCH (05:49)
[2017-02-18] MEDS: INSULIN ASPAR PROT 70/30 1,000 UNITS/10 ML VIAL SQ SCH (08:00)
[2017-02-18] MEDS: PANTOPRAZOLE SOD 40 MG DELAYED RELEASE TAB PO SCH (08:53)
[2017-02-18] MEDS: CLOPIDOGREL 75 MG TAB PO SCH (08:53)
[2017-02-18] MEDS: TRIMETHOPRIM 100 MG TAB PO SCH (08:53)
[2017-02-18] MEDS: METOPROLOL TARTRATE 25 MG TAB PO SCH ×2 (08:54→21:34)
[2017-02-18] MEDS: ASPIRIN 81 MG CHEW TAB PO SCH (08:54)
[2017-02-18] MEDS: DOCUSATE SODIUM 50 MG/SENNA 8.6 MG TAB PO SCH ×2 (08:54→21:00)
[2017-02-18] MEDS: SODIUM CHLORIDE 0.9% FLUSH 10 ML FLUSH IV FLUSH SCH ×2 (09:00→21:35)
[2017-02-18] MEDS ORDERED: PNEUMOCOCCAL POLYVALENT INJ 25 MCG/0.5 ML SYR IM ONE (09:00)
--- NOTE | 2017-02-18 09:10 | HHI.PR ---
Subjective Remarks No chest pain. No significant shortness of breath reported. Patient does report fatigue. Hemoglobin pending this morning. Objective Vital Signs Date Time Temp Pulse Resp B/P Pulse Ox O2 Delivery O2 Flow Rate FiO2 02/18/17 07:30 98.9 94 16 126/67 95 02/18/17 06:00 85 02/18/17 05:00 80 02/18/17 04:00 93 16 143/75 95 02/18/17 04:00 79 02/18/17 04:00 100 Room Air 02/18/17 03:00 80 02/18/17 02:00 81 02/18/17 01:00 90 02/18/17 00:10 100 Room Air 02/18/17 00:00 82 02/18/17 00:00 95 16 126/67 95 02/17/17 23:00 92 02/17/17 22:00 90 02/17/17 21:00 96 02/17/17 20:25 100 Room Air 02/17/17 20:00 98.1 95 16 137/67 95 02/17/17 20:00 92 02/17/17 19:00 94 02/17/17 18:03 95 02/17/17 17:04 88 02/17/17 16:00 93 02/17/17 15:00 88 02/17/17 15:00 97.9 87 17 138/81 95 02/17/17 15:00 100 Room Air 02/17/17 14:00 82 02/17/17 13:00 84 02/17/17 12:00 81 02/17/17 11:00 94 Room Air 02/17/17 11:00 73 02/17/17 11:00 98.1 80 17 119/65 94 02/17/17 10:00 84 I/O 02/17/17 02/17/17 02/17/17 02/18/17 02/18/17 02/18/17 07:00 15:00 23:00 07:00 15:00 23:00 Intake Total 2040 ml 500 ml 360 ml Balance 2040 ml 500 ml 360 ml Intake Oral 840 ml 500 ml 360 ml IV Total 200 ml Packed Cells 1000 ml # Voids 5 3 2 # Bowel Movements 0 Result Diagram: 02/17/1762802/17/17628 Objective Remarks GENERAL: NAD, A&Ox3 HEAD: Normocephalic. NECK: Supple, trachea midline. No lymphadenopathy. EYES: No scleral icterus. No injection or drainage. CARDIOVASCULAR: Regular rate and rhythm without murmurs, gallops, or rubs. RESPIRATORY: Breath sounds equal bilaterally. No accessory muscle use. GASTROINTESTINAL: Abdomen soft, non-tender, nondistended. MUSCULOSKELETAL: No cyanosis, or edema. SKIN: Warm and dry. NEURO: No focal neurological deficitis. A/P Problem List: (1) DM (diabetes mellitus) ICD Code: E11.9 (2) HTN (hypertension) ICD Code: I10 (3) NSTEMI (non-ST elevated myocardial infarction) ICD Code: I21.4 (4) Elevated troponin ICD Code: R74.8 (5) Chronic kidney disease ICD Code: N18.9 (6) Angina pectoris ICD Code: I20.9 (7) Renal insufficiency ICD Code: N28.9 Assessment and Plan Assessment and plan 86-year-old female admitted with an NSTEMI. No complaints of chest pain or cardiac symptoms today. Continue to monitor on telemetry. No signs of UTI. No further episodes of hypoglycemia. Monitor for hemoglobin level today. Labs ordered. Follow CBC. NSTEMI History of coronary artery disease Follow and [facility] Cardiology consulted Patient is presently chest pain-free Monitor cardiac enzymes Monitor for recurrence of chest pain As needed nitroglycerin Aspirin Monitor her for arrhythmias on telemetry Hypothyroidism Continue Synthroid Follows in outpatient Hypertension Continue baseline treatments Follow blood pressures TEAGAN Chronic kidney disease Diuresis provided Caution with IV hydration, Risk for fluid overload with IV hydration Diabetes Follow blood sugars Insulin sliding scale Diabetic diet History of CVA Supportive care Follow clinically Hyperlipidemia Continue statin Check cholesterol levels DVT prophylaxis Shaji Valencia MD Feb 18, 2017 09:10
[2017-02-18] MEDS: NYSTATIN 100,000 U/GM OINT 15 GM TUBE TOPICAL SCH ×2 (09:11→21:45)
--- NOTE | 2017-02-18 10:59 | PD.CARD.PN ---
Subjective Subjective Remarks No events overnight Translation done by her daughter No chest pain, breathing better Objective Medications Current Medications Medications (Trade) Dose Ordered Sig/Siddharth Route Start Time Stop Time Status Last Admin (NS Flush) 2 ml UNSCH PRN IV FLUSH 02/16/17 12:45 (NS Flush) 2 ml BID IV FLUSH 02/16/17 21:00 02/18/17 09:00 (Zofran Inj) 4 mg Q6H PRN IVP 02/16/17 12:45 (Lovenox Inj) 30 mg Q24H SQ 02/16/17 14:00 02/17/17 15:23 (Narcan Inj) 0.4 mg UNSCH PRN IV 02/16/17 12:45 (Marisol-Colace) 1 tab BID PO 02/16/17 21:00 02/18/17 08:54 (Milk Of Magnesia Liq) 30 ml Q12H PRN PO 02/16/17 12:45 (Senokot) 17.2 mg Q12H PRN PO 02/16/17 12:45 (Dulcolax Supp) 10 mg DAILY PRN RECTAL 02/16/17 12:45 (Lactulose Liq) 30 ml DAILY PRN PO 02/16/17 12:45 (D50w (Vial) Inj) 50 ml UNSCH PRN IV 02/16/17 19:45 (Glucagon Inj) 1 mg UNSCH PRN OTHER 02/16/17 19:45 (Aspirin Chew) 81 mg DAILY PO 02/17/17 09:00 02/18/17 08:54 (Plavix) 75 mg DAILY PO 02/17/17 09:00 02/18/17 08:53 (Synthroid) 75 mcg DAILY@07 PO 02/17/17 07:00 02/18/17 05:49 (Lopressor) 25 mg BID PO 02/16/17 21:00 02/18/17 08:54 (Proloprim) 100 mg DAILY PO 02/17/17 09:00 02/18/17 08:53 (NovoLOG MIX 70/ 30 INJ) 34 units DAILY@08 SQ 02/17/17 08:00 02/18/17 08:00 (Protonix) 40 mg DAILY PO 02/17/17 09:00 02/18/17 08:53 (Pravachol) 40 mg HS PO 02/16/17 21:00 02/17/17 20:53 (Imdur) 30 mg DAILY@07 PO 02/18/17 07:00 02/18/17 05:49 (Mycostatin Oint) 1 applic Q12HR TOPICAL 02/17/17 21:00 02/18/17 09:11 (NovoLOG MIX 70/ 30 INJ) 5 units HS SQ 02/17/17 21:00 Vital Signs / I&O Vital Signs Date Time Temp Pulse Resp B/P Pulse Ox O2 Delivery O2 Flow Rate FiO2 02/18/17 10:00 84 02/18/17 08:00 Room Air 02/18/17 07:30 98.9 94 16 126/67 95 02/18/17 07:00 85 02/18/17 06:00 85 02/18/17 05:00 80 02/18/17 04:00 93 16 143/75 95 02/18/17 04:00 79 02/18/17 04:00 100 Room Air 02/18/17 03:00 80 02/18/17 02:00 81 02/18/17 01:00 90 02/18/17 00:10 100 Room Air 02/18/17 00:00 82 02/18/17 00:00 95 16 126/67 95 02/17/17 23:00 92 02/17/17 22:00 90 02/17/17 21:00 96 02/17/17 20:25 100 Room Air 02/17/17 20:00 98.1 95 16 137/67 95 02/17/17 20:00 92 02/17/17 19:00 94 02/17/17 18:03 95 02/17/17 17:04 88 02/17/17 16:00 93 02/17/17 15:00 88 02/17/17 15:00 97.9 87 17 138/81 95 02/17/17 15:00 100 Room Air 02/17/17 14:00 82 02/17/17 13:00 84 02/17/17 12:00 81 02/17/17 11:00 94 Room Air 02/17/17 11:00 73 02/17/17 11:00 98.1 80 17 119/65 94 I/O 02/17/17 02/17/17 02/17/17 02/18/17 02/18/176/17 07:00 15:00 23:00 07:00 15:00 23:00 Intake Total 2040 ml 500 ml 360 ml Balance 2040 ml 500 ml 360 ml Intake Oral 840 ml 500 ml 360 ml IV Total 200 ml Packed Cells 1000 ml # Voids 5 3 2 # Bowel Movements 0 Physical Exam GENERAL: NAD, alert and awake SKIN: Warm and dry. HEAD: Atraumatic. Normocephalic. EYES: Pupils equal and round. No scleral icterus. No injection or drainage. ENT: No nasal bleeding or discharge. Mucous membranes pink and moist. NECK: Trachea midline. No JVD. CARDIOVASCULAR: Regular rate and rhythm. RESPIRATORY: No accessory muscle use. Mild crackles at the bases GASTROINTESTINAL: Abdomen soft, non-tender, nondistended. Hepatic and splenic margins not palpable. MUSCULOSKELETAL: Extremities without clubbing, cyanosis, or edema. No obvious deformities. NEUROLOGICAL: Awake and alert. No obvious cranial nerve deficits. Motor grossly within normal limits. Five out of 5 muscle strength in the arms and legs. Normal speech. PSYCHIATRIC: Appropriate mood and affect; insight and judgment normal. Laboratory Laboratory Tests Test 02/18/17 08:00 Troponin I 1.14 NG/ML Assessment and Plan Problem List: (1) Elevated troponin (2) Chronic kidney disease (3) Renal insufficiency (4) DM (diabetes mellitus) (5) HTN (hypertension) Assessment and Plan 1) Deemed not a revascularization candidate twice before due to CKD/Anemia Now Hgb dropped to 7, so further not a candidate 2) 2 units of PRBC given Agree with keeping Hgb towards 9 Repeat Hgb 9.7 Repeat CBC in the am 3) Acute CHF Given IV Lasix yesterday Check BMP tomorrow as well as clinically to decide on further Lasix If stable tomorrow, possible DC 4) Will start Imdur 30 mg daily Nitro SL as needed Martell Smart DO Feb 18, 2017 10:59
[2017-02-18] MEDS: ENOXAPARIN SODIUM 30 MG/0.3 ML SYRINGE SQ SCH (15:39)
[2017-02-18] MEDS: INSULIN HUMAN NPH 1,000 UNITS/10 ML VIAL SQ SCH (17:39)
[2017-02-18] MEDS: PRAVASTATIN SOD 40 MG TAB PO SCH (21:34)
[2017-02-19] VITALS (30 sets, daily range): BP systolic 122–159; BP diastolic 60–85; PULSE 68–96; RESP 16–18; TEMP 98.3–99.5; O2SAT 96–99
[2017-02-19] MEDS: LEVOTHYROXINE SODIUM 75 MCG TAB PO SCH (05:41)
[2017-02-19] MEDS: ISOSORBIDE MONONITRATE 30 MG TAB PO SCH (05:41)
[2017-02-19] MEDS: INSULIN ASPART SUPPLEMENTAL SCALE SQ SCH ×4 (05:42→20:54)
[2017-02-19 07:00] LABS: HEMATOCRIT 28.6 % (35.0-46.0); MEAN CELL VOLUME 85.5 FL (80.0-100.0); MEAN CORPUSCULAR HEMOGLOBIN 28.6 PG (27.0-34.0); MEAN CORPUSCULAR HGB CONC 33.5 % (32.0-36.0); PLATELET COUNT 149 TH/MM3 (150-450); RED BLOOD COUNT 3.34 MIL/MM3 (4.00-5.30); RED CELL DISTRIBUTION WIDTH 16.6 % (11.6-17.2); REVIEW FLAG FINAL; WHITE BLOOD COUNT 6.4 TH/MM3 (4.0-11.0)
[2017-02-19 07:24] LABS: BICARBONATE 25.6 MEQ/L (21.0-32.0); POTASSIUM 4.4 MEQ/L (3.5-5.1)
[2017-02-19] MEDS: CLOPIDOGREL 75 MG TAB PO SCH (09:24)
[2017-02-19] MEDS: PANTOPRAZOLE SOD 40 MG DELAYED RELEASE TAB PO SCH (09:25)
[2017-02-19] MEDS: METOPROLOL TARTRATE 25 MG TAB PO SCH ×2 (09:25→20:46)
[2017-02-19] MEDS: TRIMETHOPRIM 100 MG TAB PO SCH (09:25)
[2017-02-19] MEDS: DOCUSATE SODIUM 50 MG/SENNA 8.6 MG TAB PO SCH ×2 (09:25→20:45)
[2017-02-19] MEDS: ASPIRIN 81 MG CHEW TAB PO SCH (09:25)
[2017-02-19] MEDS: SODIUM CHLORIDE 0.9% FLUSH 10 ML FLUSH IV FLUSH SCH ×2 (09:25→20:46)
[2017-02-19] MEDS: INSULIN HUMAN NPH 1,000 UNITS/10 ML VIAL SQ SCH ×2 (09:27→16:29)
[2017-02-19] MEDS: NYSTATIN 100,000 U/GM OINT 15 GM TUBE TOPICAL SCH ×2 (09:41→21:00)
[2017-02-19] MEDS: ENOXAPARIN SODIUM 30 MG/0.3 ML SYRINGE SQ SCH (14:30)
--- NOTE | 2017-02-19 14:44 | PD.CARD.PN ---
Subjective Subjective Remarks No events overnight Daughter at bedside translating No chest pain, mild SOB Objective Medications Current Medications Medications (Trade) Dose Ordered Sig/Siddharth Route Start Time Stop Time Status Last Admin (NS Flush) 2 ml UNSCH PRN IV FLUSH 02/16/17 12:45 (NS Flush) 2 ml BID IV FLUSH 02/16/17 21:00 02/19/17 09:25 (Zofran Inj) 4 mg Q6H PRN IVP 02/16/17 12:45 (Lovenox Inj) 30 mg Q24H SQ 02/16/17 14:00 02/19/17 14:30 (Narcan Inj) 0.4 mg UNSCH PRN IV 02/16/17 12:45 (Marisol-Colace) 1 tab BID PO 02/16/17 21:00 02/19/17 09:25 (Milk Of Magnesia Liq) 30 ml Q12H PRN PO 02/16/17 12:45 (Senokot) 17.2 mg Q12H PRN PO 02/16/17 12:45 (Dulcolax Supp) 10 mg DAILY PRN RECTAL 02/16/17 12:45 (Lactulose Liq) 30 ml DAILY PRN PO 02/16/17 12:45 (D50w (Vial) Inj) 50 ml UNSCH PRN IV 02/16/17 19:45 (Glucagon Inj) 1 mg UNSCH PRN OTHER 02/16/17 19:45 (Aspirin Chew) 81 mg DAILY PO 02/17/17 09:00 02/19/17 09:25 (Plavix) 75 mg DAILY PO 02/17/17 09:00 02/19/17 09:24 (Synthroid) 75 mcg DAILY@07 PO 02/17/17 07:00 02/19/17 05:41 (Lopressor) 25 mg BID PO 02/16/17 21:00 02/19/17 09:25 (Proloprim) 100 mg DAILY PO 02/17/17 09:00 02/19/17 09:25 (Protonix) 40 mg DAILY PO 02/17/17 09:00 02/19/17 09:25 (Pravachol) 40 mg HS PO 02/16/17 21:00 02/18/17 21:34 (Imdur) 30 mg DAILY@07 PO 02/18/17 07:00 02/19/17 05:41 (Mycostatin Oint) 1 applic Q12HR TOPICAL 02/17/17 21:00 02/19/17 09:41 (NovoLIN N INJ) 5 units DAILY@17 SQ 02/18/17 17:00 02/18/17 17:39 (NovoLIN N INJ) 15 units DAILY@08 SQ 02/19/17 08:00 02/19/17 09:27 Vital Signs / I&O Vital Signs Date Time Temp Pulse Resp B/P Pulse Ox O2 Delivery O2 Flow Rate FiO2 02/19/17 14:00 80 02/19/17 13:00 82 02/19/17 12:00 73 02/19/17 11:00 72 02/19/17 10:23 97 Nasal Cannula 1.00 02/19/17 10:00 81 02/19/17 09:00 83 02/19/17 08:00 80 02/19/17 07:00 80 02/19/17 06:27 98.3 77 18 143/79 99 02/19/17 06:00 74 02/19/17 05:00 90 02/19/17 04:00 68 02/19/17 03:36 97 Nasal Cannula 2.00 02/19/17 03:00 79 02/19/17 02:00 70 02/19/17 01:02 97 Nasal Cannula 2.00 02/19/17 01:01 98.6 79 16 131/68 97 02/19/17 01:00 76 02/19/17 00:00 74 02/18/17 23:00 84 02/18/17 22:00 76 02/18/17 21:00 82 02/18/17 20:00 99 Nasal Cannula 2.00 02/18/17 20:00 98.4 85 16 131/69 99 02/18/17 20:00 82 02/18/17 19:00 79 02/18/17 18:00 82 02/18/17 17:00 79 02/18/17 16:00 81 02/18/17 15:00 98.1 80 16 122/67 99 02/18/17 15:00 76 02/18/17 15:00 Room Air I/O 02/18/17 02/18/17 02/18/17 02/19/17 02/19/17 02/19/17 07:00 15:00 23:00 07:00 15:00 23:00 Intake Total 360 ml 700 ml 360 ml Balance 360 ml 700 ml 360 ml Intake Oral 360 ml 700 ml 360 ml # Voids 2 5 6 # Bowel Movements 1 1 Physical Exam GENERAL: NAD, alert and awake SKIN: Warm and dry. HEAD: Atraumatic. Normocephalic. EYES: Pupils equal and round. No scleral icterus. No injection or drainage. ENT: No nasal bleeding or discharge. Mucous membranes pink and moist. NECK: Trachea midline. No JVD. CARDIOVASCULAR: Regular rate and rhythm. RESPIRATORY: No accessory muscle use. Mild crackles at the bases GASTROINTESTINAL: Abdomen soft, non-tender, nondistended. Hepatic and splenic margins not palpable. MUSCULOSKELETAL: Extremities without clubbing, cyanosis, or edema. No obvious deformities. NEUROLOGICAL: Awake and alert. No obvious cranial nerve deficits. Motor grossly within normal limits. Five out of 5 muscle strength in the arms and legs. Normal speech. PSYCHIATRIC: Appropriate mood and affect; insight and judgment normal. Laboratory Laboratory Tests Test 02/19/17 05:39 White Blood Count 6.4 TH/MM3 Red Blood Count 3.34 MIL/MM3 Hemoglobin 9.6 GM/DL Hematocrit 28.6 % Mean Corpuscular Volume 85.5 FL Mean Corpuscular Hemoglobin 28.6 PG Mean Corpuscular Hemoglobin 33.5 % Concent Red Cell Distribution Width 16.6 % Platelet Count 149 TH/MM3 Mean Platelet Volume 10.8 FL Sodium Level 136 MEQ/L Potassium Level 4.4 MEQ/L Chloride Level 102 MEQ/L Carbon Dioxide Level 25.6 MEQ/L Anion Gap 8 MEQ/L Blood Urea Nitrogen 26 MG/DL Creatinine 1.61 MG/DL Estimat Glomerular Filtration 30 ML/MIN Rate Random Glucose 160 MG/DL Calcium Level 8.7 MG/DL Assessment and Plan Problem List: (1) Elevated troponin (2) Chronic kidney disease (3) Renal insufficiency (4) DM (diabetes mellitus) (5) HTN (hypertension) Assessment and Plan 1) Deemed not a revascularization candidate twice before due to CKD/Anemia Now Hgb dropped to 7, so further not a candidate 2) 2 units of PRBC given Agree with keeping Hgb towards 9 Repeat Hgb 9.7 Repeat CBC in the am 3) Acute CHF Plan for Lasix today 4) Started on Imdur 30 mg daily Nitro SL as needed 5) PT evaluation Martell Smart DO Feb 19, 2017 14:44
[2017-02-19] MEDS ORDERED: FUROSEMIDE 20 MG/2 ML VIAL IV PUSH ONE (14:45)
--- NOTE | 2017-02-19 19:22 | HHI.PR ---
Subjective Remarks No chest pain today. Patient complains of left flank pain and left groin pain. This may be related to her back but we also agreed to check her for UTI. Objective Vital Signs Date Time Temp Pulse Resp B/P Pulse Ox O2 Delivery O2 Flow Rate FiO2 02/19/17 18:00 96 02/19/17 17:00 84 02/19/17 16:00 93 02/19/17 15:03 99.0 88 16 123/60 96 02/19/17 15:03 96 02/19/17 15:00 85 02/19/17 14:00 80 02/19/17 13:00 82 02/19/17 12:00 73 02/19/17 11:45 99.2 75 16 122/64 96 02/19/17 11:45 96 Nasal Cannula 1.00 02/19/17 11:00 72 02/19/17 10:23 97 Nasal Cannula 1.00 02/19/17 10:00 81 02/19/17 09:20 98.3 83 16 130/68 98 02/19/17 09:20 98 Nasal Cannula 1.00 02/19/17 09:00 83 02/19/17 08:00 80 02/19/17 07:00 80 02/19/17 06:27 98.3 77 18 143/79 99 02/19/17 06:00 74 02/19/17 05:00 90 02/19/17 04:00 68 02/19/17 03:36 97 Nasal Cannula 2.00 02/19/17 03:00 79 02/19/17 02:00 70 02/19/17 01:02 97 Nasal Cannula 2.00 02/19/17 01:01 98.6 79 16 131/68 97 02/19/17 01:00 76 02/19/17 00:00 74 02/18/17 23:00 84 02/18/17 22:00 76 02/18/17 21:00 82 02/18/17 20:00 99 Nasal Cannula 2.00 02/18/17 20:00 98.4 85 16 131/69 99 02/18/17 20:00 82 I/O 02/18/17 02/18/17 02/18/17 02/19/17 02/19/17 02/19/17 07:00 15:00 23:00 07:00 15:00 23:00 Intake Total 360 ml 700 ml 360 ml 240 ml Balance 360 ml 700 ml 360 ml 240 ml Intake Oral 360 ml 700 ml 360 ml 240 ml # Voids 2 5 6 2 # Bowel Movements 1 1 Result Diagram: 02/19/1739 02/19/1739 Objective Remarks GENERAL: NAD, A&Ox3 HEAD: Normocephalic. NECK: Supple, trachea midline. No lymphadenopathy. EYES: No scleral icterus. No injection or drainage. CARDIOVASCULAR: Regular rate and rhythm without murmurs, gallops, or rubs. RESPIRATORY: Breath sounds equal bilaterally. No accessory muscle use. GASTROINTESTINAL: Abdomen soft, non-tender, nondistended. MUSCULOSKELETAL: No cyanosis, or edema. SKIN: Warm and dry. NEURO: No focal neurological deficitis. A/P Problem List: (1) DM (diabetes mellitus) ICD Code: E11.9 (2) HTN (hypertension) ICD Code: I10 (3) NSTEMI (non-ST elevated myocardial infarction) ICD Code: I21.4 (4) Elevated troponin ICD Code: R74.8 (5) Chronic kidney disease ICD Code: N18.9 (6) Angina pectoris ICD Code: I20.9 (7) Renal insufficiency ICD Code: N28.9 Assessment and Plan Assessment and plan 86-year-old female admitted with an NSTEMI. No complaints of chest pain or cardiac symptoms today. Continue to monitor on telemetry. Check UA. Continue physical therapy. Possible need for transfer to SNF for rehabilitation based on today's PT report but will compare to tomorrow. Oxygen weaned. NSTEMI History of coronary artery disease Follow and [facility] Cardiology consulted Patient is presently chest pain-free Monitor cardiac enzymes Monitor for recurrence of chest pain As needed nitroglycerin Aspirin Monitor her for arrhythmias on telemetry Hypothyroidism Continue Synthroid Follows in outpatient Hypertension Continue baseline treatments Follow blood pressures TEAGAN Chronic kidney disease Diuresis provided Caution with IV hydration, Risk for fluid overload with IV hydration Diabetes Follow blood sugars Insulin sliding scale Diabetic diet History of CVA Supportive care Follow clinically Hyperlipidemia Continue statin Check cholesterol levels DVT prophylaxis Shaji Valencia MD Feb 19, 2017 7:22 pm
[2017-02-19] MEDS: PRAVASTATIN SOD 40 MG TAB PO SCH (20:46)
[2017-02-20] VITALS (15 sets, daily range): BP systolic 120–154; BP diastolic 61–81; PULSE 75–94; RESP 18–20; TEMP 97.5–99.7; O2SAT 94–97
[2017-02-20] MEDS: LEVOTHYROXINE SODIUM 75 MCG TAB PO SCH (06:26)
[2017-02-20] MEDS: ISOSORBIDE MONONITRATE 30 MG TAB PO SCH (06:26)
[2017-02-20] MEDS: INSULIN ASPART SUPPLEMENTAL SCALE SQ SCH ×4 (06:31→21:10)
[2017-02-20] MEDS: INSULIN HUMAN NPH 1,000 UNITS/10 ML VIAL SQ SCH ×2 (07:44→16:27)
[2017-02-20] MEDS: DOCUSATE SODIUM 50 MG/SENNA 8.6 MG TAB PO SCH ×2 (07:50→21:11)
[2017-02-20] MEDS: TRIMETHOPRIM 100 MG TAB PO SCH (07:50)
[2017-02-20] MEDS: CLOPIDOGREL 75 MG TAB PO SCH (07:51)
[2017-02-20] MEDS: PANTOPRAZOLE SOD 40 MG DELAYED RELEASE TAB PO SCH (07:51)
[2017-02-20] MEDS: METOPROLOL TARTRATE 25 MG TAB PO SCH ×2 (07:51→21:11)
[2017-02-20] MEDS: SODIUM CHLORIDE 0.9% FLUSH 10 ML FLUSH IV FLUSH SCH ×2 (07:51→21:11)
[2017-02-20] MEDS: ASPIRIN 81 MG CHEW TAB PO SCH (07:51)
[2017-02-20] MEDS: NYSTATIN 100,000 U/GM OINT 15 GM TUBE TOPICAL SCH ×2 (07:52→21:00)
--- NOTE | 2017-02-20 09:21 | HHI.PR ---
Subjective Remarks No further chest pain. Left flank pain is improved. Urinalysis is pending. PT and OT evaluations are pending for today. Yesterday patient needed group home facility per recommendations of PT, however patient and family member hoping to take patient home, with expectations that she will be doing better prior to discharge. Objective Vital Signs Date Time Temp Pulse Resp B/P Pulse Ox O2 Delivery O2 Flow Rate FiO2 02/20/17 08:00 94 02/20/17 07:00 97.5 94 18 141/73 97 02/20/17 07:00 97 Room Air 02/20/17 07:00 91 02/20/17 06:00 80 02/20/17 05:00 84 02/20/17 04:00 Room Air 02/20/17 04:00 98.3 87 18 154/81 94 02/20/17 04:00 81 02/20/17 03:00 82 02/20/17 02:00 82 02/20/17 01:00 86 02/20/17 00:00 97.5 89 18 144/75 96 02/20/17 00:00 82 02/20/17 00:00 Room Air 02/19/17 23:00 80 02/19/17 22:00 92 02/19/17 21:03 21 02/19/17 21:00 94 02/19/17 20:00 Room Air 02/19/17 20:00 99.5 94 18 159/85 97 02/19/17 20:00 89 02/19/17 19:00 94 02/19/17 18:00 96 02/19/17 17:00 84 02/19/17 16:00 93 02/19/17 15:03 99.0 88 16 123/60 96 02/19/17 15:03 96 02/19/17 15:00 85 02/19/17 14:00 80 02/19/17 13:00 82 02/19/17 12:00 73 02/19/17 11:45 99.2 75 16 122/64 96 02/19/17 11:45 96 Nasal Cannula 1.00 02/19/17 11:00 72 02/19/17 10:23 97 Nasal Cannula 1.00 02/19/17 10:00 81 02/19/17 09:20 98.3 83 16 130/68 98 02/19/17 09:20 98 Nasal Cannula 1.00 I/O 02/19/17 02/19/17 02/19/17 02/20/17 02/20/17 02/20/17 07:00 15:00 23:00 07:00 15:00 23:00 Intake Total 360 ml 240 ml 240 ml Balance 360 ml 240 ml 240 ml Intake Oral 360 ml 240 ml 240 ml # Voids 6 2 2 # Bowel Movements 1 Result Diagram: 02/19/17 0539 02/19/1739 Objective Remarks GENERAL: NAD, A&Ox3 HEAD: Normocephalic. NECK: Supple, trachea midline. No lymphadenopathy. EYES: No scleral icterus. No injection or drainage. CARDIOVASCULAR: Regular rate and rhythm without murmurs, gallops, or rubs. RESPIRATORY: Breath sounds equal bilaterally. No accessory muscle use. GASTROINTESTINAL: Abdomen soft, non-tender, nondistended. MUSCULOSKELETAL: No cyanosis, or edema. SKIN: Warm and dry. NEURO: No focal neurological deficitis. A/P Problem List: (1) DM (diabetes mellitus) ICD Code: E11.9 (2) HTN (hypertension) ICD Code: I10 (3) NSTEMI (non-ST elevated myocardial infarction) ICD Code: I21.4 (4) Elevated troponin ICD Code: R74.8 (5) Chronic kidney disease ICD Code: N18.9 (6) Angina pectoris ICD Code: I20.9 (7) Renal insufficiency ICD Code: N28.9 Assessment and Plan Assessment and plan 86-year-old female admitted with an NSTEMI. No complaints of chest pain or cardiac symptoms today. Continue to monitor on telemetry. Check UA. Continue physical therapy. Continue to follow for urinalysis report. Repeat OT and physical therapy evaluations today to determine patient's mobility status. Family helps to take patient home. NSTEMI History of coronary artery disease Follow and [facility] Cardiology consulted Patient is presently chest pain-free Monitor cardiac enzymes Monitor for recurrence of chest pain As needed nitroglycerin Aspirin Monitor her for arrhythmias on telemetry Hypothyroidism Continue Synthroid Follows in outpatient Hypertension Continue baseline treatments Follow blood pressures TEAGAN Chronic kidney disease Diuresis provided Caution with IV hydration, Risk for fluid overload with IV hydration Diabetes Follow blood sugars Insulin sliding scale Diabetic diet History of CVA Supportive care Follow clinically Hyperlipidemia Continue statin Check cholesterol levels DVT prophylaxis Shaji Valencia MD Feb 20, 2017 09:21
[2017-02-20 11:45] LABS: AUTOMATED NEUTROPHIL # 4.7 TH/MM3 (1.8-7.7); BASOPHIL % 0.5 % (0.0-2.0); EOSINOPHIL # 0.2 TH/MM3 (0-0.4); EOSINOPHIL % 2.7 % (0.0-4.0); HEMATOCRIT 30.2 % (35.0-46.0); HEMO FLAGS DIFF FINAL; LYMPH % 18.9 % (9.0-44.0); LYMPHOCYTE # 1.4 TH/MM3 (1.0-4.8); MEAN CELL VOLUME 84.6 FL (80.0-100.0); MEAN CORPUSCULAR HEMOGLOBIN 28.3 PG (27.0-34.0); MEAN CORPUSCULAR HGB CONC 33.5 % (32.0-36.0); MONO % 15.2 % (0.0-8.0); NEUT % 62.7 % (16.0-70.0); PLATELET COUNT 171 TH/MM3 (150-450); RED BLOOD COUNT 3.57 MIL/MM3 (4.00-5.30); RED CELL DISTRIBUTION WIDTH 16.3 % (11.6-17.2); WHITE BLOOD COUNT 7.6 TH/MM3 (4.0-11.0)
[2017-02-20 12:06] LABS: BICARBONATE 26.6 MEQ/L (21.0-32.0)
--- NOTE | 2017-02-20 13:04 | PD.CARD.PN ---
Subjective Subjective Remarks No events overnight No chest pain/SOB No SOB with walking Objective Medications Current Medications Medications (Trade) Dose Ordered Sig/Siddharth Route Start Time Stop Time Status Last Admin (NS Flush) 2 ml UNSCH PRN IV FLUSH 02/16/17 12:45 (NS Flush) 2 ml BID IV FLUSH 02/16/17 21:00 02/20/17 07:51 (Zofran Inj) 4 mg Q6H PRN IVP 02/16/17 12:45 (Lovenox Inj) 30 mg Q24H SQ 02/16/17 14:00 02/19/17 14:30 (Narcan Inj) 0.4 mg UNSCH PRN IV 02/16/17 12:45 (Marisol-Colace) 1 tab BID PO 02/16/17 21:00 02/20/17 07:50 (Milk Of Magnesia Liq) 30 ml Q12H PRN PO 02/16/17 12:45 (Senokot) 17.2 mg Q12H PRN PO 02/16/17 12:45 (Dulcolax Supp) 10 mg DAILY PRN RECTAL 02/16/17 12:45 (Lactulose Liq) 30 ml DAILY PRN PO 02/16/17 12:45 (D50w (Vial) Inj) 50 ml UNSCH PRN IV 02/16/17 19:45 (Glucagon Inj) 1 mg UNSCH PRN OTHER 02/16/17 19:45 (Aspirin Chew) 81 mg DAILY PO 02/17/17 09:00 02/20/17 07:51 (Plavix) 75 mg DAILY PO 02/17/17 09:00 02/20/17 07:51 (Synthroid) 75 mcg DAILY@ PO 02/17/17 07:00 02/20/17 06:26 (Lopressor) 25 mg BID PO 02/16/17 21:00 02/20/17 07:51 (Proloprim) 100 mg DAILY PO 02/17/17 09:00 02/20/17 07:50 (Protonix) 40 mg DAILY PO 02/17/17 09:00 02/20/17 07:51 (Pravachol) 40 mg HS PO 02/16/17 21:00 02/19/17 20:46 (Imdur) 30 mg DAILY@ PO 02/18/17 07:00 02/20/17 06:26 (Mycostatin Oint) 1 applic Q12HR TOPICAL 02/17/17 21:00 02/20/17 07:52 (NovoLIN N INJ) 5 units DAILY@17 SQ 02/18/17 17:00 02/19/17 16:29 (NovoLIN N INJ) 15 units DAILY@08 SQ 02/19/17 08:00 02/20/17 07:44 Vital Signs / I&O Vital Signs Date Time Temp Pulse Resp B/P Pulse Ox O2 Delivery O2 Flow Rate FiO2 02/20/17 10:20 75 02/20/17 09:48 95 02/20/17 09:00 78 02/20/17 08:00 94 02/20/17 07:00 97.5 94 18 141/73 97 02/20/17 07:00 97 Room Air 02/20/17 07:00 91 02/20/17 06:00 80 02/20/17 05:00 84 02/20/17 04:00 Room Air 02/20/17 04:00 98.3 87 18 154/81 94 02/20/17 04:00 81 02/20/17 03:00 82 02/20/17 02:00 82 02/20/17 01:00 86 02/20/17 00:00 97.5 89 18 144/75 96 02/20/17 00:00 82 02/20/17 00:00 Room Air 02/19/17 23:00 80 02/19/17 22:00 92 02/19/17 21:03 21 02/19/17 21:00 94 02/19/17 20:00 Room Air 02/19/17 20:00 99.5 94 18 159/85 97 02/19/17 20:00 89 02/19/17 19:00 94 02/19/17 18:00 96 02/19/17 17:00 84 02/19/17 16:00 93 02/19/17 15:03 99.0 88 16 123/60 96 02/19/17 15:03 96 02/19/17 15:00 85 02/19/17 14:00 80 I/O 02/19/17 02/19/17 02/19/17 02/20/17 02/20/17 02/20/17 07:00 15:00 23:00 07:00 15:00 23:00 Intake Total 360 ml 240 ml 240 ml Balance 360 ml 240 ml 240 ml Intake Oral 360 ml 240 ml 240 ml # Voids 6 2 2 # Bowel Movements 1 Physical Exam GENERAL: NAD, alert and awake SKIN: Warm and dry. HEAD: Atraumatic. Normocephalic. EYES: Pupils equal and round. No scleral icterus. No injection or drainage. ENT: No nasal bleeding or discharge. Mucous membranes pink and moist. NECK: Trachea midline. No JVD. CARDIOVASCULAR: Regular rate and rhythm. RESPIRATORY: No accessory muscle use. CTA B/L GASTROINTESTINAL: Abdomen soft, non-tender, nondistended. Hepatic and splenic margins not palpable. MUSCULOSKELETAL: Extremities without clubbing, cyanosis, or edema. No obvious deformities. NEUROLOGICAL: Awake and alert. No obvious cranial nerve deficits. Motor grossly within normal limits. Five out of 5 muscle strength in the arms and legs. Normal speech. PSYCHIATRIC: Appropriate mood and affect; insight and judgment normal. Laboratory Laboratory Tests Test 02/20/17 11:15 White Blood Count 7.6 TH/MM3 Red Blood Count 3.57 MIL/MM3 Hemoglobin 10.1 GM/DL Hematocrit 30.2 % Mean Corpuscular Volume 84.6 FL Mean Corpuscular Hemoglobin 28.3 PG Mean Corpuscular Hemoglobin 33.5 % Concent Red Cell Distribution Width 16.3 % Platelet Count 171 TH/MM3 Mean Platelet Volume 10.2 FL Neutrophils (%) (Auto) 62.7 % Lymphocytes (%) (Auto) 18.9 % Monocytes (%) (Auto) 15.2 % Eosinophils (%) (Auto) 2.7 % Basophils (%) (Auto) 0.5 % Neutrophils # (Auto) 4.7 TH/MM3 Lymphocytes # (Auto) 1.4 TH/MM3 Monocytes # (Auto) 1.1 TH/MM3 Eosinophils # (Auto) 0.2 TH/MM3 Basophils # (Auto) 0.0 TH/MM3 CBC Comment DIFF FINAL Differential Comment Sodium Level 136 MEQ/L Potassium Level 4.0 MEQ/L Chloride Level 99 MEQ/L Carbon Dioxide Level 26.6 MEQ/L Anion Gap 10 MEQ/L Blood Urea Nitrogen 25 MG/DL Creatinine 1.62 MG/DL Estimat Glomerular Filtration 30 ML/MIN Rate Random Glucose 220 MG/DL Calcium Level 8.5 MG/DL Assessment and Plan Problem List: (1) Elevated troponin (2) Chronic kidney disease (3) Renal insufficiency (4) DM (diabetes mellitus) (5) HTN (hypertension) Assessment and Plan 1) Deemed not a revascularization candidate twice before due to CKD/Anemia Now Hgb dropped to 7, so further not a candidate 2) 2 units of PRBC given Agree with keeping Hgb towards 9 Repeat Hgb 9.7 3) Acute CHF Compensated now Probably needs Lasix at home daily 4) Started on Imdur 30 mg daily Nitro SL as needed 5) PT evaluation Martell Smart DO Feb 20, 2017 13:04
[2017-02-20 13:21] LABS: BLOOD, URINE NEG (NEG); GLUCOSE,URINE 70 mg/dL (NEG); KETONE, URINE NEG (NEG); NITRITE,URINE NEG (NEG); PH, URINE 6.5 (5.0-8.5); RENAL EPITHELIAL CELLS <1 /hpf; SQUAMOUS EPITHELIAL CELL URINE 3 /hpf (0-5); URINE COLOR YELLOW (YELLW/STRAW)
[2017-02-20 13:22] LABS: COMMENT (UR) CATH-CULT NOT IND; CULTURE IF INDICATED CATH CULTURE NOT IND
[2017-02-20] MEDS: ENOXAPARIN SODIUM 30 MG/0.3 ML SYRINGE SQ SCH (16:37)
[2017-02-20] MEDS: PRAVASTATIN SOD 40 MG TAB PO SCH (21:11)
--- NOTE | 2017-02-20 23:40 | RADRPT ---
EXAM DATE/TIME: 02/20/2017 23:30 [place] COMPARISON: CHEST SINGLE AP, February 16, 2017, 10:09. INDICATIONS : Fever, cough. MEDICAL HISTORY : Diabetes mellitus type II. SURGICAL HISTORY : CABG. ENCOUNTER: Subsequent ACUITY: 1 month PAIN SCORE: 0/10 LOCATION: Bilateral chest FINDINGS: Cardiomegaly, sternotomy wires and bilateral basilar opacity felt to be related to a large hiatal her patt however developing consolidation is difficult to exclude. CONCLUSION: A large hiatal hernia is suspected. Superimposed airspace disease at the bases not excluded though fe lt less likely. Praveen Craft MD on February 20, 2017 at 23:37 Board Certified Radiologist. This report was verified electronically.
[2017-02-21] VITALS (9 sets, daily range): BP systolic 120–154; BP diastolic 55–70; PULSE 74–100; RESP 18; TEMP 97.3–101; O2SAT 94–99
[2017-02-21] MEDS: INSULIN ASPART SUPPLEMENTAL SCALE SQ SCH ×4 (05:29→21:14)
[2017-02-21] MEDS: ISOSORBIDE MONONITRATE 30 MG TAB PO SCH (05:30)
[2017-02-21] MEDS: LEVOTHYROXINE SODIUM 75 MCG TAB PO SCH (05:30)
[2017-02-21] MEDS: FUROSEMIDE 20 MG TAB PO SCH (10:04)
[2017-02-21] MEDS: DOCUSATE SODIUM 50 MG/SENNA 8.6 MG TAB PO SCH ×2 (10:04→21:17)
[2017-02-21] MEDS: ASPIRIN 81 MG CHEW TAB PO SCH (10:04)
[2017-02-21] MEDS: PANTOPRAZOLE SOD 40 MG DELAYED RELEASE TAB PO SCH (10:04)
[2017-02-21] MEDS: METOPROLOL TARTRATE 25 MG TAB PO SCH ×2 (10:05→21:17)
[2017-02-21] MEDS: CLOPIDOGREL 75 MG TAB PO SCH (10:05)
[2017-02-21] MEDS: SODIUM CHLORIDE 0.9% FLUSH 10 ML FLUSH IV FLUSH SCH ×2 (10:05→21:18)
[2017-02-21] MEDS: ACETAMINOPHEN 325 MG TAB PO PRN ×2 (10:05→21:18)
[2017-02-21] MEDS: NYSTATIN 100,000 U/GM OINT 15 GM TUBE TOPICAL SCH ×2 (10:07→21:18)
[2017-02-21] MEDS: INSULIN HUMAN NPH 1,000 UNITS/10 ML VIAL SQ SCH ×2 (10:10→17:42)
[2017-02-21] MEDS: TRIMETHOPRIM 100 MG TAB PO SCH (12:57)
[2017-02-21 14:10] LABS: AUTOMATED NEUTROPHIL # 6.1 TH/MM3 (1.8-7.7); BASOPHIL % 0.3 % (0.0-2.0); EOSINOPHIL # 0.1 TH/MM3 (0-0.4); EOSINOPHIL % 0.6 % (0.0-4.0); HEMATOCRIT 29.6 % (35.0-46.0); HEMO FLAGS DIFF FINAL; LYMPH % 16.9 % (9.0-44.0); LYMPHOCYTE # 1.5 TH/MM3 (1.0-4.8); MEAN CELL VOLUME 84.9 FL (80.0-100.0); MEAN CORPUSCULAR HEMOGLOBIN 28.2 PG (27.0-34.0); MEAN CORPUSCULAR HGB CONC 33.3 % (32.0-36.0); NEUT % 69.2 % (16.0-70.0); PLATELET COUNT 168 TH/MM3 (150-450); RED BLOOD COUNT 3.49 MIL/MM3 (4.00-5.30); RED CELL DISTRIBUTION WIDTH 16.6 % (11.6-17.2); WHITE BLOOD COUNT 8.8 TH/MM3 (4.0-11.0)
[2017-02-21 14:51] LABS: BICARBONATE 25.6 MEQ/L (21.0-32.0); POTASSIUM 3.7 MEQ/L (3.5-5.1)
--- NOTE | 2017-02-21 15:15 | HHI.PR ---
Subjective Remarks No chest pain. DW patient via sample card maker. DW daughter. Agreeable to SNF. Objective Vitals Vital Signs Date Time Temp Pulse Resp B/P Pulse Ox O2 Delivery O2 Flow Rate FiO2 02/21/17 12:00 97.3 80 18 130/55 96 02/21/17 11:54 94 Nasal Cannula 1.00 02/21/17 10:17 100 02/21/17 10:17 Room Air 02/21/17 08:00 99.2 89 18 132/64 96 02/21/17 04:00 98.6 87 18 154/70 97 02/21/17 04:00 Room Air 02/21/17 00:00 101.0 84 18 150/65 96 02/21/17 00:00 Room Air 02/20/17 20:00 89 02/20/17 20:00 99.7 92 18 133/63 95 02/20/17 20:00 Room Air 02/20/17 16:00 99.0 88 18 140/63 97 I/O 02/20/17 02/20/17 02/20/17 02/21/17 02/21/17 02/21/17 07:00 15:00 23:00 07:00 15:00 23:00 Intake Total 240 ml 480 ml 120 ml 120 ml Balance 240 ml 480 ml 120 ml 120 ml Intake Oral 240 ml 480 ml 120 ml 120 ml # Voids 2 1 2 2 # Bowel Movements 0 0 0 Result Diagram: 02/21/17 1350 02/21/17 1330 Objective Remarks GENERAL: Elderly female in no apparent distress. CARDIOVASCULAR: Rate in 80s. Regular rhythm without murmurs, gallops, or rubs. RESPIRATORY: Good respiratory efforts. Breath sounds equal and clear to auscultation bilaterally. GASTROINTESTINAL: Abdomen soft, non-tender, non-distended. Normal active bowel sounds MUSCULOSKELETAL: Extremities without cyanosis, or edema. NEURO: Alert & Oriented. Moves all ext x4 PSYCH: Appropriate mood and affect. A/P Problem List: (1) NSTEMI (non-ST elevated myocardial infarction) ICD Code: I21.4 Status: Acute (2) Renal insufficiency ICD Code: N28.9 Status: Acute (3) Chronic kidney disease ICD Code: N18.9 Status: Acute (4) Elevated troponin ICD Code: R74.8 Status: Acute (5) Angina pectoris ICD Code: I20.9 Status: Acute Assessment and Plan 86-year-old female admitted with a NSTEMI. NSTEMI History of coronary artery disease Cardiology following. Not a candidate for revascularization due to comorbid conditions including advanced age, renal failure and anemia. Patient is presently chest pain-free Aspirin Monitor her for arrhythmias on telemetry Hypothyroidism Continue Synthroid Follows in outpatient Hypertension Continue baseline treatments Follow blood pressures TEAGAN Chronic kidney disease Caution with IV hydration, Risk for fluid overload with IV hydration Diabetes Follow blood sugars Insulin sliding scale Diabetic diet History of CVA Supportive care Follow clinically Hyperlipidemia Continue statin DVT prophylaxis Lovenox Discharge Planning Consult CM for SNF placement . Mary Flower MD Feb 21, 2017 15:15
--- NOTE | 2017-02-21 15:49 | PD.CARD.PN ---
Subjective Subjective Remarks No events overnight Daughter at bedside translating No chest pain/SOB Objective Medications Current Medications Medications (Trade) Dose Ordered Sig/Siddharth Route Start Time Stop Time Status Last Admin (NS Flush) 2 ml UNSCH PRN IV FLUSH 02/16/17 12:45 (NS Flush) 2 ml BID IV FLUSH 02/16/17 21:00 02/21/17 10:05 (Zofran Inj) 4 mg Q6H PRN IVP 02/16/17 12:45 (Lovenox Inj) 30 mg Q24H SQ 02/16/17 14:00 02/20/17 16:37 (Narcan Inj) 0.4 mg UNSCH PRN IV 02/16/17 12:45 (Marisol-Colace) 1 tab BID PO 02/16/17 21:00 02/21/17 10:04 (Milk Of Magnesia Liq) 30 ml Q12H PRN PO 02/16/17 12:45 (Senokot) 17.2 mg Q12H PRN PO 02/16/17 12:45 (Dulcolax Supp) 10 mg DAILY PRN RECTAL 02/16/17 12:45 (Lactulose Liq) 30 ml DAILY PRN PO 02/16/17 12:45 (D50w (Vial) Inj) 50 ml UNSCH PRN IV 02/16/17 19:45 (Glucagon Inj) 1 mg UNSCH PRN OTHER 02/16/17 19:45 (Aspirin Chew) 81 mg DAILY PO 02/17/17 09:00 02/21/17 10:04 (Plavix) 75 mg DAILY PO 02/17/17 09:00 02/21/17 10:05 (Synthroid) 75 mcg DAILY@07 PO 02/17/17 07:00 02/21/17 05:30 (Lopressor) 25 mg BID PO 02/16/17 21:00 02/21/17 10:05 (Proloprim) 100 mg DAILY PO 02/17/17 09:00 02/21/17 12:57 (Protonix) 40 mg DAILY PO 02/17/17 09:00 02/21/17 10:04 (Pravachol) 40 mg HS PO 02/16/17 21:00 02/20/17 21:11 (Imdur) 30 mg DAILY@07 PO 02/18/17 07:00 02/21/17 05:30 (Mycostatin Oint) 1 applic Q12HR TOPICAL 02/17/17 21:00 02/21/17 10:07 (NovoLIN N INJ) 5 units DAILY@17 SQ 02/18/17 17:00 02/20/17 16:27 (NovoLIN N INJ) 15 units DAILY@08 SQ 02/19/17 08:00 02/21/17 10:10 (Lasix) 20 mg DAILY PO 02/21/17 09:00 02/21/17 10:04 (Tylenol) 650 mg Q4H PRN PO 02/20/17 23:15 02/21/17 10:05 Vital Signs / I&O Vital Signs Date Time Temp Pulse Resp B/P Pulse Ox O2 Delivery O2 Flow Rate FiO2 02/21/17 12:00 97.3 80 18 130/55 96 02/21/17 11:54 94 Nasal Cannula 1.00 02/21/17 10:17 100 02/21/17 10:17 Room Air 02/21/17 08:00 99.2 89 18 132/64 96 02/21/17 04:00 98.6 87 18 154/70 97 02/21/17 04:00 Room Air 02/21/17 00:00 101.0 84 18 150/65 96 02/21/17 00:00 Room Air 02/20/17 20:00 89 02/20/17 20:00 99.7 92 18 133/63 95 02/20/17 20:00 Room Air 02/20/17 16:00 99.0 88 18 140/63 97 I/O 02/20/17 02/20/17 02/20/17 02/21/17 02/21/17 02/21/17 07:00 15:00 23:00 07:00 15:00 23:00 Intake Total 240 ml 480 ml 120 ml 120 ml Balance 240 ml 480 ml 120 ml 120 ml Intake Oral 240 ml 480 ml 120 ml 120 ml # Voids 2 1 2 2 # Bowel Movements 0 0 0 Physical Exam GENERAL: NAD, alert and awake SKIN: Warm and dry. HEAD: Atraumatic. Normocephalic. EYES: Pupils equal and round. No scleral icterus. No injection or drainage. ENT: No nasal bleeding or discharge. Mucous membranes pink and moist. NECK: Trachea midline. No JVD. CARDIOVASCULAR: Regular rate and rhythm. RESPIRATORY: No accessory muscle use. CTA B/L GASTROINTESTINAL: Abdomen soft, non-tender, nondistended. Hepatic and splenic margins not palpable. MUSCULOSKELETAL: Extremities without clubbing, cyanosis, or edema. No obvious deformities. NEUROLOGICAL: Awake and alert. No obvious cranial nerve deficits. Motor grossly within normal limits. Five out of 5 muscle strength in the arms and legs. Normal speech. PSYCHIATRIC: Appropriate mood and affect; insight and judgment normal. Laboratory Laboratory Tests Test 02/21/17 02/21/17 13:30 13:50 Sodium Level 132 MEQ/L Potassium Level 3.7 MEQ/L Chloride Level 98 MEQ/L Carbon Dioxide Level 25.6 MEQ/L Anion Gap 8 MEQ/L Blood Urea Nitrogen 25 MG/DL Creatinine 1.58 MG/DL Estimat Glomerular Filtration 31 ML/MIN Rate Random Glucose 208 MG/DL Calcium Level 8.4 MG/DL White Blood Count 8.8 TH/MM3 Red Blood Count 3.49 MIL/MM3 Hemoglobin 9.9 GM/DL Hematocrit 29.6 % Mean Corpuscular Volume 84.9 FL Mean Corpuscular Hemoglobin 28.2 PG Mean Corpuscular Hemoglobin 33.3 % Concent Red Cell Distribution Width 16.6 % Platelet Count 168 TH/MM3 Mean Platelet Volume 10.1 FL Neutrophils (%) (Auto) 69.2 % Lymphocytes (%) (Auto) 16.9 % Monocytes (%) (Auto) 13.0 % Eosinophils (%) (Auto) 0.6 % Basophils (%) (Auto) 0.3 % Neutrophils # (Auto) 6.1 TH/MM3 Lymphocytes # (Auto) 1.5 TH/MM3 Monocytes # (Auto) 1.1 TH/MM3 Eosinophils # (Auto) 0.1 TH/MM3 Basophils # (Auto) 0.0 TH/MM3 CBC Comment DIFF FINAL Differential Comment Assessment and Plan Problem List: (1) Elevated troponin (2) Chronic kidney disease (3) Renal insufficiency (4) DM (diabetes mellitus) (5) HTN (hypertension) Assessment and Plan 1) Deemed not a revascularization candidate twice before due to CKD/Anemia Now Hgb dropped to 7, so further not a candidate 2) 2 units of PRBC given Agree with keeping Hgb towards 9 Repeat Hgb 9.7 3) Acute CHF Compensated now Lasix PO daily 4) Started on Imdur 30 mg daily Nitro SL as needed 5) PT evaluation Agree with SNF as I think overall she needs to get stronger, but family wants to take her home 6) Appears cardiovascularly stable for discharge Martell Smart DO Feb 21, 2017 15:49
[2017-02-21] MEDS: ENOXAPARIN SODIUM 30 MG/0.3 ML SYRINGE SQ SCH (17:44)
[2017-02-21] MEDS: PRAVASTATIN SOD 40 MG TAB PO SCH (21:17)
[2017-02-22] VITALS (7 sets, daily range): BP systolic 104–147; BP diastolic 52–66; PULSE 64–87; RESP 18; TEMP 97.7–98.3; O2SAT 95–99
[2017-02-22] MEDS: INSULIN ASPART SUPPLEMENTAL SCALE SQ SCH ×3 (06:07→16:00)
[2017-02-22] MEDS: LEVOTHYROXINE SODIUM 75 MCG TAB PO SCH (06:09)
[2017-02-22] MEDS: ISOSORBIDE MONONITRATE 30 MG TAB PO SCH (06:09)
[2017-02-22] MEDS: INSULIN HUMAN NPH 1,000 UNITS/10 ML VIAL SQ SCH ×2 (08:00→17:00)
[2017-02-22] MEDS: NYSTATIN 100,000 U/GM OINT 15 GM TUBE TOPICAL SCH (09:00)
[2017-02-22] MEDS: DOCUSATE SODIUM 50 MG/SENNA 8.6 MG TAB PO SCH (09:00)
[2017-02-22] MEDS: METOPROLOL TARTRATE 25 MG TAB PO SCH (09:23)
[2017-02-22] MEDS: PANTOPRAZOLE SOD 40 MG DELAYED RELEASE TAB PO SCH (09:23)
[2017-02-22] MEDS: TRIMETHOPRIM 100 MG TAB PO SCH (09:23)
[2017-02-22] MEDS: FUROSEMIDE 20 MG TAB PO SCH (09:24)
[2017-02-22] MEDS: SODIUM CHLORIDE 0.9% FLUSH 10 ML FLUSH IV FLUSH SCH (09:24)
[2017-02-22] MEDS: CLOPIDOGREL 75 MG TAB PO SCH (09:24)
[2017-02-22] MEDS: ASPIRIN 81 MG CHEW TAB PO SCH (09:24)
[2017-02-22] MEDS: ACETAMINOPHEN 325 MG TAB PO PRN (11:58)
[2017-02-22] MEDS ORDERED: ISOS30TA3 PO (12:25)
[2017-02-22] MEDS ORDERED: FURO20TA PO (12:25)
--- NOTE | 2017-02-22 12:26 | HHI.DS ---
Discharge Summary Admission Date Feb 16, 2017 at 12:44 Discharge Date: Feb 22, 2017 Admitting Diagnosis NONSTEMI, ANEMIA, PULMONARY EDEMA (1) NSTEMI (non-ST elevated myocardial infarction) ICD Code: I21.4 (2) Renal insufficiency ICD Code: N28.9 (3) Chronic kidney disease ICD Code: N18.9 (4) Elevated troponin ICD Code: R74.8 (5) Angina pectoris ICD Code: I20.9 Procedures None Brief History - From Admission Ms. Banegas is an 86-year-old female. She was admitted secondary to chest pain. She had a tight central chest pain as an outpatient and came to the ER secondary to this. In the ER with nitroglycerin chest pain was relieved. She has positive troponin in this troponin graduated upward with second evaluation. NSTEMI is diagnosed. When seen she is still reporting no further chest pain. Hyponatremia and hyperkalemia are present. She is also anemic with a hemoglobin of 7.0 so given ischemia in the presence of anemia transfusion has been ordered of 2 units packed red blood cells. When she arrived she had some mild fluid overload but Lasix is provided and when seen she is no longer showing evidence of fluid overload. Hyperglycemia is also present and noted. CBC/BMP: 02/21/17 1350 02/21/17 1330 Significant Findings Laboratory Tests Test 02/20/17 02/20/17 02/21/17 02/21/17 11:15 12:50 13:30 13:50 Red Blood Count 3.57 MIL/MM3 3.49 MIL/MM3 (4.00-5.30) (4.00-5.30) Hemoglobin 10.1 GM/DL 9.9 GM/DL (11.6-15.3) (11.6-15.3) Hematocrit 30.2 % 29.6 % (35.0-46.0) (35.0-46.0) Monocytes (%) (Auto) 15.2 % 13.0 % (0.0-8.0) (0.0-8.0) Monocytes # (Auto) 1.1 TH/MM3 1.1 TH/MM3 (0-0.9) (0-0.9) Blood Urea Nitrogen 25 MG/DL (7-18) 25 MG/DL (7-18) Creatinine 1.62 MG/DL 1.58 MG/DL (0.50-1.00) (0.50-1.00) Estimat Glomerular Filtration 30 ML/MIN (>89) 31 ML/MIN (>89) Rate Random Glucose 220 MG/DL 208 MG/DL (74-106) (74-106) Urine Turbidity HAZY (CLEAR) Urine Glucose (UA) 70 mg/dL (NEG) Urine Leukocyte Esterase TRACE (NEG) Urine RBC 6 /hpf (0-3) Sodium Level 132 MEQ/L (136-145) Calcium Level 8.4 MG/DL (8.5-10.1) Imaging Last Impressions Chest X-Ray 02/20/17 0000 Signed Impressions: Service Date/Time: Monday, February 20, 2017 23:30 - CONCLUSION: A large hiatal hernia is suspected. Superimposed airspace disease at the bases not excluded though felt less likely. Praveen Craft MD PE at Discharge GENERAL: Elderly female in no apparent distress. CARDIOVASCULAR: Rate in 80s. Regular rhythm without murmurs, gallops, or rubs. RESPIRATORY: Good respiratory efforts. Breath sounds equal and clear to auscultation bilaterally. GASTROINTESTINAL: Abdomen soft, non-tender, non-distended. Normal active bowel sounds MUSCULOSKELETAL: Extremities without cyanosis, or edema. NEURO: Alert & Oriented. Moves all ext x4 PSYCH: Appropriate mood and affect. Pt update on day of discharge Patient reports feeling OK today. No chest pain or shortness of breath. We discussed discharge planning a length with the patient and her daughter. Hospital Course 86-year-old female admitted with a NSTEMI. Evaluation and treatment course detailed below: NSTEMI History of coronary artery disease Cardiology followed the patient. Not a candidate for revascularization due to comorbid conditions including advanced age, renal failure and anemia. Patient chest pain completely resolved. Medications adjusted. Patient dc on Aspirin, Plavix, metoprolol, Imdur. Hypothyroidism Continue Synthroid Follows in outpatient Hypertension Continue baseline treatments TEAGAN Chronic kidney disease -Returned to baseline. Diabetes Insulin sliding scale Diabetic diet History of CVA Supportive care Follow clinically Hyperlipidemia Continue statin Pt Condition on Discharge: Stable Discharge Disposition: Discharge to SNF Discharge Time: > 30 minutes Discharge Instructions DIET: Follow Instructions for: Diabetic Diet Activities you can perform: Regular-No Restrictions Follow up Referrals: SNF/INTERMEDIATE/HH with [facility] New Medications: Furosemide (Furosemide) 20 Mg Tab 20 MG PO DAILY #30 TAB Isosorbide Mononitrate ER (Isosorbide Mononitrate ER) 30 Mg Dora 30 MG PO DAILY@07 #30 TAB Continued Medications: Aspirin (Aspirin) 81 Mg Chew 81 MG PO DAILY Ref 0 TAB Clopidogrel (Plavix) 75 Mg Tab 75 MG PO DAILY Heart #30 TAB Insulin Aspart Protam-Asp 70-30 Inj (Novolog Mix 70-30 FlexPen Inj) 300 Unit/3 Ml Pen 34 UNITS SQ DAILY IN THE AM Blood Sugar Management #1 Ref 0 PEN Insulin Aspart Protam-Asp 70-30 Inj (Novolog Mix 70-30 FlexPen Inj) 300 Unit/3 Ml Pen 20 UNITS SQ DAILY IN THE PM Blood Sugar Management #1 Ref 0 PEN Levothyroxine (Levothyroxine) 75 Mcg Tab 75 MCG PO DAILY Thyroid #30 Ref 0 TAB Losartan (Losartan) 50 Mg Tab 50 MG PO BID Blood Pressure Management #30 Ref 0 TAB Metoprolol Tartrate (Metoprolol Tartrate) 25 Mg Tab 25 MG PO BID #60 Ref 0 TAB Omeprazole (Omeprazole) 40 Mg Cap 40 MG PO DAILY #30 Ref 0 CAP Simvastatin (Simvastatin) 20 Mg Tab 20 MG PO HS Cholesterol Management #30 Ref 0 TAB Trimethoprim (Trimethoprim) 100 Mg Tab 100 MG PO DAILY Infection Days 5 Ref 0 TAB Discontinued Medications: Amlodipine (Norvasc) 5 Mg Tab 5 MG PO DAILY #30 TAB Mary Flower MD Feb 22, 2017 12:25
[2017-02-22] MEDS: ENOXAPARIN SODIUM 30 MG/0.3 ML SYRINGE SQ SCH (14:00)
--- NOTE | 2017-02-22 18:38 | PD.CARD.PN ---
Subjective Subjective Remarks No events overnight No chest pain/SOB Up and walking the halls with PT Objective Medications Current Medications Sodium Chloride (NS Flush) 2 ml UNSCH PRN IVF FLUSH AFTER USING IV ACCESS; Start 02/16/17 at 10:00; Stop 02/16/17 at 12:59; Status DC Aspirin (Aspirin Chew) 162 mg ONCE ONCE PO Last administered on 02/16/17 10:48 ; Start 02/16/17 at 10:15; Stop 02/16/17 at 10:16; Status DC Nitroglycerin (Nitroglycerin 2% Oint) 1 inch ONCE ONCE TOP Last administered on 02/16/17 10:48; Start 02/16/17 at 10:15; Stop 02/16/17 at 10:16; Status DC Furosemide (Lasix Inj) 20 mg ONCE ONCE IV PUSH Last administered on 02/16/17 12:35; Start 02/16/17 at 12:15; Stop 02/16/17 at 12:16; Status DC Sodium Chloride (NS Flush) 2 ml UNSCH PRN IV FLUSH FLUSH AFTER USING IV ACCESS ; Start 02/16/17 at 12:45; Stop 02/22/17 at 18:14; Status DC Sodium Chloride (NS Flush) 2 ml BID IV FLUSH Last administered on 02/22/17 09: 24; Start 02/16/17 at 21:00; Stop 02/22/17 at 18:14; Status DC Ondansetron HCl (Zofran Inj) 4 mg Q6H PRN IVP NAUSEA OR VOMITING; Start at 12:45; Stop 02/22/17 at 18:14; Status DC Enoxaparin Sodium (Lovenox Inj) 30 mg Q24H SQ Last administered on 02/22/17 14 :00; Start 02/16/17 at 14:00; Stop 02/22/17 at 18:14; Status DC Naloxone HCl (Narcan Inj) 0.4 mg UNSCH PRN IV SEE LABEL COMMENTS; Start at 12:45; Stop 02/22/17 at 18:14; Status DC Senna/Docusate Sodium (Marisol-Colace) 1 tab BID PO Last administered on 09:00; Start 02/16/17 at 21:00; Stop 02/22/17 at 18:14; Status DC Magnesium Hydroxide (Milk Of Magnesia Liq) 30 ml Q12H PRN PO MILD - MODERATE CONSTIPATION; Start 02/16/17 at 12:45; Stop 02/22/17 at 18:14; Status DC Sennosides (Senokot) 17.2 mg Q12H PRN PO MODERATE - SEVERE CONSTIPATION; Start 02/16/17 at 12:45; Stop 02/22/17 at 18:14; Status DC Bisacodyl (Dulcolax Supp) 10 mg DAILY PRN RECTAL SEVERE CONSITIPATION; Start at 12:45; Stop 02/22/17 at 18:14; Status DC Lactulose 30 ml 30 ml DAILY PRN PO SEVERE CONSITIPATION; Start 02/16/17 at 12:45 ; Stop 02/22/17 at 18:14; Status DC Sodium Chloride (NS 250 ml Inj) 250 ml @ 15 mls/hr ONCE ONCE IV Last administered on 02/16/17 22:02; Start 02/16/17 at 12:45; Stop 02/17/17 at 05:24; Status DC Furosemide (Lasix Inj) 20 mg ONCE ONCE IV Last administered on 02/17/17 01:15 ; Start 02/16/17 at 14:00; Stop 02/16/17 at 14:01; Status DC Influenza Virus Vaccine (Flu (Quadrivalent) Vaccine Inj) 0.5 ml ONCE ONCE IM ; Start 02/17/17 at 10:00; Stop 02/17/17 at 10:01; Status Cancel Dextrose (D50w (Vial) Inj) 50 ml UNSCH PRN IV HYPOGLYCEMIA-SEE COMMENTS; Start 02/16/17 at 19:45; Stop 02/22/17 at 18:14; Status DC Glucagon (Glucagon Inj) 1 mg UNSCH PRN OTHER HYPOGLYCEMIA-SEE COMMENTS; Start 02/16/17 at 19:45; Stop 02/22/17 at 18:14; Status DC Insulin Aspart (NovoLOG SUPPLEMENTAL SCALE) 1 ACHS SLIDING SCALE SQ Last administered on 02/22/17 16:00; Start 02/16/17 at 21:00; Stop 02/22/17 at 18:14 ; Status DC Dextrose (D50w (Vial) Inj) 50 ml UNSCH PRN IV HYPOGLYCEMIA-SEE COMMENTS; Start 02/16/17 at 21:00; Status UNV Glucagon (Glucagon Inj) 1 mg UNSCH PRN OTHER HYPOGLYCEMIA-SEE COMMENTS; Start 02/16/17 at 21:00; Status UNV Insulin Aspart (NovoLOG SUPPLEMENTAL SCALE) 1 ACHS SLIDING SCALE SQ ; Start 02/16/17 at 21:00; Status UNV Aspirin (Aspirin Chew) 81 mg DAILY PO Last administered on 02/22/17 09:24; Start 02/17/17 at 09:00; Stop 02/22/17 at 18:14; Status DC Clopidogrel Bisulfate (Plavix) 75 mg DAILY PO Last administered on 02/22/17 09 :24; Start 02/17/17 at 09:00; Stop 02/22/17 at 18:14; Status DC Levothyroxine Sodium (Synthroid) 75 mcg DAILY@07 PO Last administered on 06:09; Start 02/17/17 at 07:00; Stop 02/22/17 at 18:14; Status DC Metoprolol Tartrate (Lopressor) 25 mg BID PO Last administered on 02/22/17 09: 23; Start 02/16/17 at 21:00; Stop 02/22/17 at 18:14; Status DC Trimethoprim (Proloprim) 100 mg DAILY PO Last administered on 02/22/17 09:23; Start 02/17/17 at 09:00; Stop 02/22/17 at 18:14; Status DC Insulin Aspart Prota 70%/Aspart 30% (NovoLOG MIX 70/ 30 INJ) 20 units HS SQ Last administered on 02/16/17 21:00; Start 02/16/17 at 21:00; Stop 02/17/17 at 18: 15; Status DC Insulin Aspart Prota 70%/Aspart 30% (NovoLOG MIX 70/ 30 INJ) 34 units DAILY@08 SQ Last administered on 02/18/17 08:00; Start 02/17/17 at 08:00; Stop 02/18/17 at 11:24; Status DC Pantoprazole Sodium (Protonix) 40 mg DAILY PO Last administered on 02/22/17 09 :23; Start 02/17/17 at 09:00; Stop 02/22/17 at 18:14; Status DC Pravastatin Sodium (Pravachol) 40 mg HS PO CM Last administered on 02/21/17 21: 17; Start 02/16/17 at 21:00; Stop 02/22/17 at 18:14; Status DC Furosemide (Lasix Inj) 40 mg STK-MED ONCE .ROUTE ; Start 02/17/17 at 00:48; Stop 02/17/17 at 00:49; Status DC Furosemide (Lasix Inj) 20 mg ONCE ONCE IV ; Start 02/17/17 at 02:00; Stop at 02:01; Status DC Isosorbide Mononitrate (Imdur) 30 mg DAILY@07 PO Last administered on 06:09; Start 02/18/17 at 07:00; Stop 02/22/17 at 18:14; Status DC Isosorbide Mononitrate (Imdur) 30 mg ONCE ONCE PO Last administered on 15:23; Start 02/17/17 at 13:00; Stop 02/17/17 at 13:01; Status DC Pneumococcal Polyvalent Vaccine (Pneumovax-23 Inj) 25 mcg ONCE ONCE IM Last administered on 02/18/17 09:06; Start 02/18/17 at 09:00; Stop 02/18/17 at 09:01; Status DC Nystatin (Mycostatin Oint) 1 applic Q12HR TOPICAL Last administered on 09:00; Start 02/17/17 at 21:00; Stop 02/22/17 at 18:14; Status DC Insulin Aspart Prota 70%/Aspart 30% (NovoLOG MIX 70/ 30 INJ) 5 units HS SQ ; Start 02/17/17 at 21:00; Stop 02/18/17 at 11:24; Status DC Insulin Human NPH (NovoLIN N INJ) 5 units DAILY@17 SQ Last administered on 02/22 17:00; Start 02/18/17 at 17:00; Stop 02/22/17 at 18:14; Status DC Insulin Human NPH (NovoLIN N INJ) 15 units DAILY@08 SQ Last administered on 08:00; Start 02/19/17 at 08:00; Stop 02/22/17 at 18:14; Status DC Furosemide (Lasix Inj) 20 mg ONCE ONCE IV PUSH Last administered on 02/19/17 16:21; Start 02/19/17 at 14:45; Stop 02/19/17 at 14:54; Status DC Furosemide (Lasix) 20 mg DAILY PO Last administered on 02/22/17 09:24; Start 02/21/17 at 09:00; Stop 02/22/17 at 18:14; Status DC Acetaminophen (Tylenol) 650 mg Q4H PRN PO fever >101, pain Last administered on 02/22/17 11:58; Start 02/20/17 at 23:15; Stop 02/22/17 at 18:14; Status DC Vital Signs / I&O Vital Signs Date Time Temp Pulse Resp B/P Pulse Ox O2 Delivery O2 Flow Rate FiO2 02/22/17 16:00 98.3 82 18 117/66 98 02/22/17 12:49 98 Nasal Cannula 1.50 02/22/17 12:00 97.7 69 18 104/52 95 02/22/17 10:00 96 Nasal Cannula 1.00 02/22/17 09:30 87 02/22/17 08:00 98.0 64 18 136/60 98 02/22/17 04:00 98.3 81 18 147/63 99 02/22/17 04:00 Nasal Cannula 1.00 02/22/17 00:00 Nasal Cannula 1.00 02/22/17 00:00 98.3 73 18 124/58 96 02/21/17 21:15 Room Air 02/21/17 20:10 98 Nasal Cannula 1.00 02/21/17 20:00 99.1 88 18 139/61 98 02/21/17 20:00 89 I/O 02/21/17 02/21/17 02/21/17 02/22/17 02/22/17 02/22/17 07:00 15:00 23:00 07:00 15:00 23:00 Intake Total 120 ml 480 ml 120 ml 6 ml 960 ml Balance 120 ml 480 ml 120 ml 6 ml 960 ml Intake Oral 120 ml 480 ml 120 ml 0 ml 960 ml IV Total 6 ml # Voids 2 2 1 2 3 # Bowel Movements 0 0 0 1 1 Physical Exam GENERAL: NAD, alert and awake SKIN: Warm and dry. HEAD: Atraumatic. Normocephalic. EYES: Pupils equal and round. No scleral icterus. No injection or drainage. ENT: No nasal bleeding or discharge. Mucous membranes pink and moist. NECK: Trachea midline. No JVD. CARDIOVASCULAR: Regular rate and rhythm. RESPIRATORY: No accessory muscle use. CTA B/L GASTROINTESTINAL: Abdomen soft, non-tender, nondistended. Hepatic and splenic margins not palpable. MUSCULOSKELETAL: Extremities without clubbing, cyanosis, or edema. No obvious deformities. NEUROLOGICAL: Awake and alert. No obvious cranial nerve deficits. Motor grossly within normal limits. Five out of 5 muscle strength in the arms and legs. Normal speech. PSYCHIATRIC: Appropriate mood and affect; insight and judgment normal. Assessment and Plan Problem List: (1) Elevated troponin (2) Chronic kidney disease (3) Renal insufficiency (4) DM (diabetes mellitus) (5) HTN (hypertension) Assessment and Plan 1) Deemed not a revascularization candidate twice before due to CKD/Anemia Now Hgb dropped to 7, so further not a candidate 2) 2 units of PRBC given Agree with keeping Hgb towards 9 Repeat Hgb 9.7 3) Acute CHF Compensated now Lasix PO daily 4) Started on Imdur 30 mg daily Nitro SL as needed 5) PT evaluation Agree with SNF as I think overall she needs to get stronger 6) Appears cardiovascularly stable for discharge Martell Smart DO Feb 22, 2017 18:38
== END 2017-02-22 18:11 | DRG 281 ==
LOC: NEPE 09:42 → NEDA 12:44 → HCIS 17:54 → N04A 02-20 11:41
PROVIDERS: ADMIT Family Medicine; ATTEND Family Medicine
PROC: 30233N1 Transfusion of Nonautologous Red Blood Cells into Peripheral Vein, Percutaneous Approach (ICD-10-PCS; principal; 2017-02-16)
DX: I21.4 Non-ST elevation (NSTEMI) myocardial infarction (principal); E87.1 Hypo-osmolality and hyponatremia; E11.22 Type 2 diabetes mellitus with diabetic chronic kidney disease; E11.65 Type 2 diabetes mellitus with hyperglycemia; N17.9 Acute kidney failure, unspecified; N18.4 Chronic kidney disease, stage 4 (severe); Z79.4 Long term (current) use of insulin; I12.9 Hypertensive chronic kidney disease with stage 1 through stage 4 chronic kidney disease, or unspecified chronic kidney disease; E87.5 Hyperkalemia; I50.9 Heart failure, unspecified; D64.9 Anemia, unspecified; E03.9 Hypothyroidism, unspecified; Z86.73 Personal history of transient ischemic attack (TIA), and cerebral infarction without residual deficits; E78.5 Hyperlipidemia, unspecified; I25.119 Atherosclerotic heart disease of native coronary artery with unspecified angina pectoris; Z95.1 Presence of aortocoronary bypass graft; Z79.02 Long term (current) use of antithrombotics/antiplatelets; Z79.82 Long term (current) use of aspirin; Z85.828 Personal history of other malignant neoplasm of skin
CPT/HCPCS: 36430; 71010; 80048; 80053; 81001; 82550; 82552; 82948; 83880; 84484; 85025; 85027; 85379; 85610; 85730; 86850; 86900; 86901; 86920; 87040; 90732; 93005; 96374; J1650; J1815; J1940; J7050; P9016